=== PATIENT | male | born 1960 | race Caucasian/White ===

== ENCOUNTER 2018-01-26 09:28 | Inpatient (IN) ==
--- NOTE | 2018-01-26 09:53 | Emergency Department Note ---
ED Disposition Clinical Impression: Diverticulitis, Hepatic encephalopathy, Substance abuse Disposition: Still a Patient Condition on Discharge: Fair Referrals: Elsie Ho PA [Primary Care Provider] - - Critical Care Critical Care Time: No Attestation: On 01/26/18, the high probability of a clinically significant, sudden or life threatening deterioration of the following system(s) required my full and direct attention, intervention and personal management. The time I documented below is in addition to time spent performing reported procedures but includes the following listed in this critical care notation. Medical Decision Making - Junaid Inquiry Pt receiving controlled substance: No Vital Signs: 01/26/18 09:29 01/26/18 09:48 01/26/18 10:23 Temperature 97.6 F Temperature Source Oral Pulse Rate [Apical] 69 65 89 Respiratory Rate 18 Blood Pressure [Right Arm] 139/62 130/62 127/68 Blood Pressure Mean [Right Arm] 87 84 87 Blood Pressure Source [Right Arm] Automatic Cuff Manual Cuff/ Doppler Manual Cuff/ Doppler Blood Pressure Position [Right Arm] Sitting Sitting Sitting 02 Sat by Pulse Oximetry 100 99 98 Oxygen Delivery Method Room Air 01/26/18 11:13 01/26/18 11:44 01/26/18 12:07 Temperature Temperature Source Pulse Rate [Apical] 92 H 95 H 69 Respiratory Rate Blood Pressure [Right Arm] 128/70 130/79 121/72 Blood Pressure Mean [Right Arm] 89 96 88 Blood Pressure Source [Right Arm] Manual Cuff/ Doppler Manual Cuff/ Doppler Manual Cuff/ Doppler Blood Pressure Position [Right Arm] Sitting Sitting Sitting 02 Sat by Pulse Oximetry 98 97 100 Oxygen Delivery Method 01/26/18 12:37 Temperature Temperature Source Pulse Rate [Apical] 71 Respiratory Rate Blood Pressure [Right Arm] 117/72 Blood Pressure Mean [Right Arm] 87 Blood Pressure Source [Right Arm] Manual Cuff/ Doppler Blood Pressure Position [Right Arm] Sitting 02 Sat by Pulse Oximetry 100 Oxygen Delivery Method - Lab Data Lab Results 01/26/18 10:00: Urine Color Yellow, Urine Appearance Clear, Urine pH 6.0, Ur Specific [place] <= 1.005, Urine Protein Negative, Urine Glucose (UA) Negative, Urine Ketones Negative, Urine Blood Negative, Urine Nitrate Negative, Urine Bilirubin Negative, Urine Urobilinogen 4.0, Ur Leukocyte Esterase Trace, Urine RBC None, Urine WBC Occasional, Ur Squamous Epith Cells 3-5, Urine Bacteria Trace 01/26/18 10:00: Urine Opiates Screen Negative, Urine Methadone Screen Negative, Ur Barbituates Screen Negative, Ur Phencyclidine Scrn Negative, Ur Amphetamines Screen Positive H, U Benzodiazepines Scrn Negative, Urine Cocaine Screen Negative, U Marijuana (THC) Screen Negative 01/26/18 12:10: Sodium 135 L, Potassium 3.6, Chloride 98, Carbon Dioxide 28, Anion Gap 12.6, BUN 23 H, Creatinine 1.39 H, Estimated Creat Clear 68, Estimated GFR 53 L, Est GFR ( Amer) 64, Glucose 97, Calcium 9.5, Total Bilirubin 2.7 H, AST 46 H, ALT 64, Alkaline Phosphatase 150 H, Total Creatine Kinase 70, CK-MB (CK-2) 0.8, CK-MB (CK-2) Rel Index 1.1, Troponin I < 0.02, Total Protein 8.0, Albumin 3.0 L, Globulin 5.0 H, Albumin/Globulin Ratio 0.6 L, Lipase 132, TSH 0.19 L, Free T4 Index 4.7 L, Thyroxine (T4) 12.3, T3 Uptake 38, Salicylates 0.0 L, Acetaminophen 0 L, Plasma/Serum Alcohol 0 01/26/18 12:10: WBC 13.3 H, RBC 4.48 L, Hgb 15.0, Hct 44.8, MCV 99.9 H, MCH 33.4 H, MCHC 33.4, RDW 14.2, Plt Count 164, MPV 10.6 H, Neut % (Auto) 63.9, Lymph % (Auto) 28.3, [place] % (Auto) 7.2, Eos % (Auto) 0.3, Baso % (Auto) 0.2, Neut # (Auto) 8.5 H, Lymph # (Auto) 3.8, [place] # (Auto) 1.0, Eos # (Auto) 0.0, Baso # (Auto) 0.0 01/26/18 12:10: Ammonia 71 H 01/26/18 12:10: Lactate 1.7 Result diagrams: 01/26/18 12:10 01/26/18 12:10 Orders (Tests/Meds): ED MEDICATIONS Generic Name Dose Route Start Last Admin Trade Name Freq PRN Reason Stop Dose Admin Levofloxacin/Dextrose 500 mg in 100 mls @ 100 mls/hr 01/26/18 12:15 01/26/18 12:24 Levaquin 500mg/100ml Premix IV 02/09/18 12:14 100 mls/hr Q24H ERUM Administration Protocol Metronidazole 100 mls @ 100 mls/hr 01/26/18 12:15 Flagyl 500mg/100ml Ivpb IV 02/09/18 12:14 Q8H ERUM Protocol ORDERS Category Date Time Status PT/INR [Prothrombin Time INR] Stat Lab 01/26/18 10:10 Ordered - CT Data CT Scan: Head, Abdomen, Pelvis Time Received: 11:[address] Reviewed: Yes: I have viewed the radiologist's interpretation Findings Narrative: Head: Right mastoid and maxillary sinusitis, no acute intracranial process 12:00 PM: Abdomen and pelvis: Sigmoid diverticulitis without abscess or perforation - ECG Data Tracing #1 I reviewed this ECG and interpreted as documented below: EKG interpreted by Mau Reyes MD: Rhythm: sinus Rate: 66 [place]: normal Ectopy: none Conduction: normal ST Segment Changes: none T Wave Changes: none Q Waves: none No evidence of acute ischemia or injury - Physician Consults Physician Consulted: janeth Roman Time: 12:50 Reason -: Admission Comment/Response: Agrees to admit the patient to the hospital. We discussed the patient's clinical information, including history, exam, laboratory and radiology results and ED course. Per hospital procedure, I will write temporary bridge inpatient orders on the patient. Specific orders requested by the admitting physician: Continue antibiotics. Lactulose. General Adult HPI - General Chief complaint: Altered Mental Status Stated complaint: confused Time Seen by Provider: 01/26/18 09:34 Mode of Arrival: EMS Limitations: No Limitations Description of Symptoms (Recalled from ER Triage Doc. by RN): Per EMS report pt friend report pt was acting confused lastnight "wandering around, wasn't sleeping". Pt states he has been feeling confused for the past couple days. Pt is alert, oriented to person and place. Per EMS report pt told them he had been feeling confused - History of Present Illness HPI narrative: Brought in by ambulance for reported confusion. Neighbors reported that the patient was confused, wandering, not sleeping. Patient admits to being confused. States he has pain in his "chest" but points to his abdomen. He is uncertain of the details of this. States used to be a drinker and drug user in the 1980s. Nurses report that they were giving history that the patient was an IV drug user until a couple of months ago. Review of his records shows that he has cirrhosis and a history of IV drug abuse. Recent evaluation earlier this month for chest pain. Patient states he is on blood pressure medicine and a water pill, uncertain of other medications. - Related Data Home Medications Medication Instructions Recorded Confirmed Atenolol [Atenolol 50mg Tab] 50 mg PO DAILY 01/26/18 01/26/18 Bisoprolol Fumarate [Zebeta 5mg 5 mg PO QDAY 01/26/18 01/26/18 tablet] Losartan/Hydrochlorothiazide 1 tab PO DAILY 01/26/18 01/26/18 [Hyzaar 50-12.5 Tablet] Omeprazole [Omeprazole 40mg 40 mg PO QDAY 01/26/18 01/26/18 Capsule] Allergies Allergy/AdvReac Type Severity Reaction Status Date / Time No Known Allergies Allergy Unverified 05/19/17 14:41 [facility] History I have reviewed the patient's past medical history: Yes Medical History: Reports:: Hepatitis (hx of hep c/ status post harvoni infusion) , Hypertension Denies:: Diabetes Mellitus Type 1, Diabetes Mellitus Type 2 Other Surgeries: Yes: Angiogram, Other ( cyst removed ) Amputation: No Fractures: No - Social History Smoking Status: Current every day smoker Tobacco Type: cigarettes Alcohol Intake: former Alcohol Intake Frequency:: other Substance Use Type: IV drugs - Psychiatric History Expresses thoughts of harming self/others: None Suicide Plan Description: No Plan Family Hx:: Heart Attack, Stroke, Diabetes, Hyperlipidemia, Cancer ROS Obtained: Yes unobtainable due to mental status Physical Exam - General General appearance: alert, in no apparent distress - Head Head exam: atraumatic, normocephalic, normal inspection - Eye Eye exam: Present: normal appearance, PERRL, EOMI - ENT ENT exam: Present: mucous membranes moist - Neck Neck exam: Present: normal inspection, full ROM, trachea midline. Absent: meningismus, lymphadenopathy - Chest Chest inspection: Present: normal inspection, symmetric chest wall rise. Absent : tenderness - Respiratory Respiratory exam: Present: normal lung sounds bilaterally. Absent: respiratory distress - Cardiovascular Cardiovascular exam: Present: regular rate, normal rhythm. Absent: JVD - Abdominal Exam Abdominal exam: Present: soft, tenderness (Questionable minimal generalized tenderness, inconsistent), normal bowel sounds. Absent: distention, guarding - Extremities Exam Extremities exam: Present: normal inspection, full ROM, normal capillary refill. Absent: calf tenderness - Back Exam Back exam: Present: normal inspection. Absent: tenderness - Neurological Exam Neurological exam: Present: alert, CN II-XII intact, other (Oriented to person and place) - Expanded Neurological Exam Comment: Generalized weakness, no focal weakness. Sensory intact. - Psychiatric Psychiatric exam: Present: normal affect, normal mood - Skin Skin exam: Present: warm, dry, intact, normal color - Lymphatic Lymphatic Findings: no adenopathy
[2018-01-26 10:07] LABS: Microscopic, Urine URINE MICROSCOPIC (MICROSCOPIC)
[2018-01-26 10:08] LABS: Appearance,Urine CLEAR (Clear); Bilirubin,Urine Negative (Negative); Blood, Urine Negative (Negative); Color,Urine YELLOW (Yellow); Glucose,Urine (UA) Negative (Negative); Ketones,Urine Negative (Negative); Leukocyte Esterase,Urine TRACE (Negative); Protein,Urine Negative (Negative); Specific Gravity, Urine <= 1.005 (1.005-1.030)
[2018-01-26 10:16] LABS: Amphetamine/Metha Screen,Urine Positive ng/mL (<1000); Barbiturates Screen,Urine Negative ng/mL (<200); Benzodiazepines Screen,Urine Negative ng/mL (<200); Cannabinoid Screen,Urine Negative ng/mL (<50); Cocaine Screen,Urine Negative ng/mL (<300); Methadone Screen,Urine Negative ng/mL (<300); Opiate Screen,Urine Negative ng/mL (<300); Phencyclidine Screen,Urine Negative ng/mL (<25)
[2018-01-26 10:18] LABS: Bacteria,Urine Trace /lpf; WBC,Urine Occasional #/hpf (0-3)
[2018-01-26 12:15] LABS: Basophils % 0.2 % (0.1-2.0); Eosinophils % 0.3 % (0.1-12.0); Hematocrit 44.8 % (42.0-52.0); Lymphocytes # 3.8 K/mm3 (0.7-4.5); Lymphocytes % 28.3 K/mm3 (10-50); Mean Corpuscular HGB Conc 33.4 g/dL (31.8-35.4); Mean Corpuscular Hemoglobin 33.4 pg (27.0-31.2); Mean Corpuscular Volume 99.9 fl (80-94); Mean Platelet Volume 10.6 fl (7.4-10.4); Monocytes % 7.2 % (1.7-9.3); Neutrophils # 8.5 K/mm3 (1.8-7.8); Neutrophils % 63.9 % (37.0-80.0); Platelet Count 164 K/mm3 (142-424); Red Blood Count 4.48 M/mm3 (4.60-6.20); Red Cell Distribution Width 14.2 % (11.5-17.5); White Blood Count 13.3 K/mm3 (4.8-10.8)
[2018-01-26 12:48] LABS: Alanine Aminotransferase 64 U/L (12-78); Albumin/Globulin Ratio 0.6 (1.1-1.8); Alkaline Phosphatase 150 U/L (46-116); Anion Gap 12.6 mEq/L (5-15); Aspartate Amino Transferase 46 U/L (15-37); Bilirubin,Total 2.7 mg/dL (0.2-1.0); Blood Urea Nitrogen 23 mg/dL (7-18); Calcium 9.5 mg/dL (8.5-10.1); Carbon Dioxide 28 mmol/L (21.0-32.0); Chloride 98 mmol/L (98-107); Creatine Kinase 70 U/L (39-308); Free Thyroxine Index 4.7 ug/dL (5.93-13.13); Lipase 132 u/L (73-393); Potassium 3.6 mmoL/L (3.5-5.1); Sodium 135 mmol/L (136-145); T4 (Thyroxine) 12.3 ug/dl (4.7-13.3); Thyroid Stimulating Hormone 0.19 uIU/ml (0.358-3.740); Triiodothryronine (T3) Uptake 38 % (31-39)
[2018-01-26 12:50] LABS: Ethyl Alcohol 0 mg/dL (0-99)
[2018-01-26 12:51] LABS: Acetaminophen 0 ug/mL (10-30)
[2018-01-26 12:57] LABS: Glucose 97 mg/dL (74-106)
--- NOTE | 2018-01-26 13:35 | History & Physical Report ---
*Admission Date: 01/26/18 *Chief complaint: abd pain *History of present illness: this wm reports not feeling well and was seen in the ed -rought in by ambulance for reported confusion. Neighbors reported that the patient was confused, wandering, not sleeping. Patient admits to being confused. States he has pain in his "chest" but points to his abdomen. He is uncertain of the details of this. States used to be a drinker and drug user in the 1980s. Nurses report that they were giving history that the patient was an IV drug user until a couple of months ago. Review of his records shows that he has cirrhosis and a history of IV drug abuse. Recent evaluation earlier this month for chest pain. Patient states he is on blood pressure medicine and a water pill, uncertain of other medications. [facility] History I have reviewed the patient's past medical history: Yes Medical History: Reports:: Hepatitis (hx of hep c/ status post harvoni infusion), Hypertension Denies:: Diabetes Mellitus Type 1, Diabetes Mellitus Type 2 Other Surgeries: Yes: Angiogram, Other ( cyst removed ) Amputation: No Fractures: No - *Social History Smoking Status: Current every day smoker Tobacco Type: cigarettes Alcohol Intake: former Alcohol Intake Frequency:: other Substance Use Type: IV drugs - Psychiatric History Expresses thoughts of harming self/others: None Suicide Plan Description: No Plan *Family Hx:: Heart Attack, Stroke, Diabetes, Hyperlipidemia, Cancer Review of Systems - Review of Systems Review of systems:: pertinent systems reviewed and negative unless documented below - Constitutional Reports weakness - Eyes Denies change in vision - ENT Reports dry mouth - *Cardiovascular Denies chest pain at rest - *Respiratory Reports cough, Denies coughing up blood - *Gastrointestinal Reports abdominal pain, Reports nausea, Denies black, tarry stools, Denies vomiting - *Genitourinary Denies blood in urine - *Musculoskeletal Reports joint pain, Denies joint swelling - Integumentary/Breasts Denies rash - *Neurologic Reports weakness, Denies confusion, Denies headache(s), Denies seizure-like activity - Psychiatric Denies anxiety Meds Home Medications Medication Instructions Recorded Confirmed Type Bisoprolol Fumarate [Zebeta 5mg 5 mg PO DAILY 01/26/18 01/26/18 History tablet] Losartan/Hydrochlorothiazide 1 tab PO DAILY 01/26/18 01/26/18 History [Hyzaar 50-12.5 Tablet] Omeprazole [Omeprazole 40mg 40 mg PO DAILY 01/26/18 01/26/18 History Capsule] Allergies Allergy/AdvReac Type Severity Reaction Status Date / Time No Known Allergies Allergy Unverified 05/19/17 14:41 Exam Vital signs and Labs for Last 24 Hours: Temp Pulse Resp BP Pulse Ox 97.6 F 65 18 120/81 100 01/26/18 09:29 01/26/18 13:06 01/26/18 09:29 01/26/18 13:06 01/26/18 13:06 Laboratory Results - last 24 hr 01/26/18 10:00: Urine Color Yellow, Urine Appearance Clear, Urine pH 6.0, Ur Specific [place] <= 1.005, Urine Protein Negative, Urine Glucose (UA) Negative, Urine Ketones Negative, Urine Blood Negative, Urine Nitrate Negative, Urine Bilirubin Negative, Urine Urobilinogen 4.0, Ur Leukocyte Esterase Trace, Urine RBC None, Urine WBC Occasional, Ur Squamous Epith Cells 3-5, Urine Bacteria Trace 01/26/18 10:00: Urine Opiates Screen Negative, Urine Methadone Screen Negative, Ur Barbituates Screen Negative, Ur Phencyclidine Scrn Negative, Ur Amphetamines Screen Positive H, U Benzodiazepines Scrn Negative, Urine Cocaine Screen Negative, U Marijuana (THC) Screen Negative 01/26/18 12:10: Sodium 135 L, Potassium 3.6, Chloride 98, Carbon Dioxide 28, Anion Gap 12.6, BUN 23 H, Creatinine 1.39 H, Estimated Creat Clear 68, Estimated GFR 53 L, Est GFR ( Amer) 64, Glucose 97, Calcium 9.5, Total Bilirubin 2.7 H, AST 46 H, ALT 64, Alkaline Phosphatase 150 H, Total Creatine Kinase 70, CK-MB (CK-2) 0.8, CK-MB (CK-2) Rel Index 1.1, Troponin I < 0.02, Total Protein 8.0, Albumin 3.0 L, Globulin 5.0 H, Albumin/Globulin Ratio 0.6 L, Lipase 132, TSH 0.19 L, Free T4 Index 4.7 L, Thyroxine (T4) 12.3, T3 Uptake 38, Salicylates 0.0 L, Acetaminophen 0 L, Plasma/Serum Alcohol 0 01/26/18 12:10: WBC 13.3 H, RBC 4.48 L, Hgb 15.0, Hct 44.8, MCV 99.9 H, MCH 33.4 H, MCHC 33.4, RDW 14.2, Plt Count 164, MPV 10.6 H, Neut % (Auto) 63.9, Lymph % (Auto) 28.3, [place] % (Auto) 7.2, Eos % (Auto) 0.3, Baso % (Auto) 0.2, Neut # (Auto) 8.5 H, Lymph # (Auto) 3.8, [place] # (Auto) 1.0, Eos # (Auto) 0.0, Baso # (Auto) 0.0 01/26/18 12:10: Ammonia 71 H 01/26/18 12:10: Lactate 1.7 I & O for Last 24 hours: Intake & Output 01/24/18 01/25/18 01/26/18 01/27/18 11:59 11:59 11:59 11:59 Weight 180 lb - Constitutional no acute distress, cooperative - *Routine HEENT Exam Head: Present: normocephalic Eye: Present: EOMI, PERRL. Absent: conjunctival icterus ENT: Present: mucous membranes dry - *Routine Neck Exam Present: supple - *Routine Respiratory Exam Present: rhonchi - *Routine Cardiovascular Exam Present: RRR, murmur, S4 - *Routine Abdominal Exam Present: soft. Absent: organomegaly - *Routine Extremities Exam Present: edema - *Routine Skin Exam Present: intact - *Routine Neurological Exam Present: alert, oriented X3, CN II-XII intact. Absent: asterixis - Routine Psychiatric Exam Present: normal affect Assessment and Plan (1) Diverticulitis Current visit: Yes Status: Acute Category: Medical Code(s): K57.92 - Diverticulitis of intestine, part unspecified, without perforation or abscess without bleeding (2) Hepatic encephalopathy Current visit: Yes Status: Acute Category: Medical Code(s): K72.90 - Hepatic failure, unspecified without coma (3) Cirrhosis Current visit: No Status: Acute Category: Medical Code(s): K74.60 - Unspecified cirrhosis of liver (4) Renal insufficiency Current visit: Yes Status: Acute Category: Medical Code(s): N28.9 - Disorder of kidney and ureter, unspecified
--- NOTE | 2018-01-26 14:24 | Pharmacy Consult Notes ---
[facility] Pharmacy VTE Monitoring - Patient Demographics Admission date: 01/26/18 Report Date: 01/26/18 Time: 14:23 Allergies/Adverse Reactions: Patient Allergies No Known Allergies Allergy (Unverified 05/19/17 14:41) Height: 1.73 m Weight: 81.647 kg Patient Problems: Current Active Problems Diverticulitis (Acute) Hepatic encephalopathy (Acute) Substance abuse (Acute) - VTE Risk Labs: VTE Related Lab Results Hgb 15.0 g/dL (14.1-18.0) 01/26/18 12:10 Hct 44.8 % (42.0-52.0) 01/26/18 12:10 Plt Count 164 K/mm3 (142-424) 01/26/18 12:10 BUN 23 mg/dL (7-18) H 01/26/18 12:10 Creatinine 1.39 mg/dL (0.70-1.30) H 01/26/18 12:10 Estimated Creat Clear 68 mL/min (0-300) 01/26/18 12:10 Clinical Trial Participant: No - Prophylaxis VTE Prophylaxis Ordered?: Yes Types of VTE Prophylaxis: TEDS Knee High
[2018-01-27 07:17] LABS: Albumin Level 2.4 gm/dL (3.4-5.0); Albumin/Globulin Ratio 0.5 (1.1-1.8); Anion Gap 9.3 mEq/L (5-15); Bilirubin,Total 2.3 mg/dL (0.2-1.0); Globulin 4.4 gm/dl (1.3-3.2); Potassium 3.3 mmoL/L (3.5-5.1); Total Protein,Serum 6.8 gm/dL (6.4-8.2)
[2018-01-27 07:59] LABS: Basophils % 0.3 % (0.1-2.0); Eosinophils # 0.1 K/mm3 (0.0-0.4); Eosinophils % 0.9 % (0.1-12.0); Hematocrit 42.1 % (42.0-52.0); Hemoglobin 13.9 g/dL (14.1-18.0); Lymphocytes # 4.2 K/mm3 (0.7-4.5); Lymphocytes % 33.9 K/mm3 (10-50); Mean Corpuscular HGB Conc 32.9 g/dL (31.8-35.4); Mean Corpuscular Hemoglobin 33.1 pg (27.0-31.2); Mean Corpuscular Volume 100.6 fl (80-94); Mean Platelet Volume 11.3 fl (7.4-10.4); Monocytes # 1.2 K/mm3 (0.1-1.0); Neutrophils # 6.8 K/mm3 (1.8-7.8); Neutrophils % 54.9 % (37.0-80.0); Platelet Count 168 K/mm3 (142-424); Red Blood Count 4.18 M/mm3 (4.60-6.20); Red Cell Distribution Width 14.2 % (11.5-17.5); White Blood Count 12.3 K/mm3 (4.8-10.8)
[2018-01-27 08:03] LABS: Calcium 8.5 mg/dL (8.5-10.1)
[2018-01-27 08:08] LABS: INR 1.37 (0.9-1.1)
--- NOTE | 2018-01-27 09:27 | Progress Note ---
Internal Medicine - PN: Subj *Date: 01/27/18 *Time: 08:05 Interval history: doing better but has elevated ammonia Exam Vital signs and Labs for Last 24 Hours: Temp Pulse Resp BP Pulse Ox 99.1 F 87 22 114/57 100 01/27/18 07:59 01/27/18 07:59 01/27/18 07:59 01/27/18 07:59 01/27/18 07:59 Laboratory Results - last 24 hr 01/26/18 10:00: Urine Color Yellow, Urine Appearance Clear, Urine pH 6.0, Ur Specific [place] <= 1.005, Urine Protein Negative, Urine Glucose (UA) Negative, Urine Ketones Negative, Urine Blood Negative, Urine Nitrate Negative, Urine Bilirubin Negative, Urine Urobilinogen 4.0, Ur Leukocyte Esterase Trace, Urine RBC None, Urine WBC Occasional, Ur Squamous Epith Cells 3-5, Urine Bacteria Trace 01/26/18 10:00: Urine Opiates Screen Negative, Urine Methadone Screen Negative, Ur Barbituates Screen Negative, Ur Phencyclidine Scrn Negative, Ur Amphetamines Screen Positive H, U Benzodiazepines Scrn Negative, Urine Cocaine Screen Nega tive, U Marijuana (THC) Screen Negative 01/26/18 12:10: Sodium 135 L, Potassium 3.6, Chloride 98, Carbon Dioxide 28, Anion Gap 12.6, BUN 23 H, Creatinine 1.39 H, Estimated Creat Clear 68, Estimated GFR 53 L, Est GFR ( Amer) 64, Glucose 97, Calcium 9.5, Total Bilirubin 2.7 H, AST 46 H, ALT 64, Alkaline Phosphatase 150 H, Total Creatine Kinase 70, CK-MB (CK-2) 0.8, CK-MB (CK-2) Rel Index 1.1, Troponin I < 0.02, Total Protein 8.0, Albumin 3.0 L, Globulin 5.0 H, Albumin/Globulin Ratio 0.6 L, Lipase 132, TSH 0.19 L, Free T4 Index 4.7 L, Thyroxine (T4) 12.3, T3 Uptake 38, Salicylates 0.0 L, Acetaminophen 0 L, Plasma/Serum Alcohol 0 01/26/18 12:10: WBC 13.3 H, RBC 4.48 L, Hgb 15.0, Hct 44.8, MCV 99.9 H, MCH 33.4 H, MCHC 33.4, RDW 14.2, Plt Count 164, MPV 10.6 H, Neut % (Auto) 63.9, Lymph % (Auto) 28.3, [place] % (Auto) 7.2, Eos % (Auto) 0.3, Baso % (Auto) 0.2, Neut # (Auto) 8.5 H, Lymph # (Auto) 3.8, [place] # (Auto) 1.0, Eos # (Auto) 0.0, Baso # (Auto) 0.0 01/26/18 12:10: Ammonia 71 H 01/26/18 12:10: Lactate 1.7 01/27/18 05:26: Ammonia 92 H 01/27/18 05:26: Sodium 135 L, Potassium 3.3 L, Chloride 101, Carbon Dioxide 28, Anion Gap 9.3, BUN 18, Creatinine 1.26, Estimated Creat Clear 67, Estimated GFR 59, Est GFR ( Amer) 71, Glucose 147 H D, Calcium 8.5 D, Total Bilirubin 2.3 H, AST 33 D, ALT 50, Alkaline Phosphatase 122 H, Total Protein 6.8, Albumin 2.4 L D, Globulin 4.4 H, Albumin/Globulin Ratio 0.5 L 01/27/18 07:50: WBC 12.3 H, RBC 4.18 L, Hgb 13.9 L, Hct 42.1, MCV 100.6 H, MCH 33.1 H, MCHC 32.9, RDW 14.2, Plt Count 168, MPV 11.3 H, Neut % (Auto) 54.9, Lymph % (Auto) 33.9, [place] % (Auto) 10.0 H, Eos % (Auto) 0.9, Baso % (Auto) 0.3, Neut # (Auto) 6.8, Lymph # (Auto) 4.2, [place] # (Auto) 1.2 H, Eos # (Auto) 0.1, Baso # (Auto) 0.0 01/27/18 07:50: PT 14.0 H, INR 1.37 H 01/27/18 07:50: Ammonia 123 H I & O for Last 24 hours: Intake & Output 01/24/18 01/25/18 01/26/18 01/27/18 11:59 11:59 11:59 11:59 Intake Total 1769.6 / 1769.6 Balance 1769.6 / 1769.6 Weight 180 lb 161 lb 7 oz - Constitutional no acute distress - *Routine HEENT Exam Head: Present: normocephalic Eye: Present: EOMI, PERRL. Absent: conjunctival icterus ENT: Present: mucous membranes dry - *Routine Neck Exam Present: supple - *Routine Respiratory Exam Present: CTA bilaterally - *Routine Cardiovascular Exam Present: RRR - *Routine Abdominal Exam Present: soft, tenderness - *Routine Extremities Exam Absent: edema, full ROM - *Routine Skin Exam Present: intact - *Routine Neurological Exam Present: alert, oriented X3, CN II-XII intact. Absent: asterixis - Routine Psychiatric Exam Present: normal affect Assessment and Plan (1) Diverticulitis Current visit: Yes Status: Acute Category: Medical Code(s): K57.92 - Diverticulitis of intestine, part unspecified, without perforation or abscess without bleeding (2) Hepatic encephalopathy Current visit: Yes Status: Acute Category: Medical Code(s): K72.90 - Hepatic failure, unspecified without coma (3) Cirrhosis Current visit: No Status: Acute Category: Medical Code(s): K74.60 - Unspecified cirrhosis of liver (4) Renal insufficiency Current visit: Yes Status: Acute Category: Medical Code(s): N28.9 - Disorder of kidney and ureter, unspecified
[2018-01-28 09:26] LABS: Basophils % 0.4 % (0.1-2.0); Eosinophils # 0.1 K/mm3 (0.0-0.4); Eosinophils % 1.6 % (0.1-12.0); Hematocrit 42.3 % (42.0-52.0); Hemoglobin 13.5 g/dL (14.1-18.0); Lymphocytes # 2.9 K/mm3 (0.7-4.5); Lymphocytes % 37.5 K/mm3 (10-50); Mean Corpuscular HGB Conc 31.8 g/dL (31.8-35.4); Mean Corpuscular Hemoglobin 32.3 pg (27.0-31.2); Mean Corpuscular Volume 101.7 fl (80-94); Mean Platelet Volume 10.8 fl (7.4-10.4); Monocytes # 0.8 K/mm3 (0.1-1.0); Monocytes % 9.7 % (1.7-9.3); Neutrophils % 50.7 % (37.0-80.0); Platelet Count 149 K/mm3 (142-424); Red Blood Count 4.16 M/mm3 (4.60-6.20); Red Cell Distribution Width 14.1 % (11.5-17.5); White Blood Count 7.8 K/mm3 (4.8-10.8)
[2018-01-28 09:39] LABS: Albumin Level 2.4 gm/dL (3.4-5.0); Albumin/Globulin Ratio 0.5 (1.1-1.8); Anion Gap 12.1 mEq/L (5-15); Bilirubin,Total 1.5 mg/dL (0.2-1.0); Calcium 8.5 mg/dL (8.5-10.1); Globulin 4.4 gm/dl (1.3-3.2); Potassium 3.1 mmoL/L (3.5-5.1); Total Protein,Serum 6.8 gm/dL (6.4-8.2)
--- NOTE | 2018-01-28 10:58 | Discharge Summary ---
General - General Admission date:: 01/26/18 Discharge date: 01/28/18 HPI HPI: this wm reports not feeling well and was seen in the ed -rought in by ambulance for reported confusion. Neighbors reported that the patient was confused, wandering, not sleeping. Patient admits to being confused. States he has pain in his "chest" but points to his abdomen. He is uncertain of the details of this. States used to be a drinker and drug user in the 1980s. Nurses report that they were giving history that the patient was an IV drug user until a couple of months ago. Review of his records shows that he has cirrhosis and a history of IV drug abuse. Recent evaluation earlier this month for chest pain. Patient states he is on blood pressure medicine and a water pill, uncertain of other medications. Hospital Course Hospital Course: pt with abd pain and dec po intake and wea seen in the ed and admitted with diverticulitis and hepatic encephalopathy - pt with slow improvement with meds and ivf - his diet was tolerated and we discussed op gi eval and pcp follow up Objective Vital signs: Temp Pulse Resp BP Pulse Ox 97.7 F 70 18 133/69 95 01/28/18 08:00 01/28/18 08:00 01/28/18 08:00 01/28/18 08:00 01/28/18 08:00 no acute distress - *Routine HEENT Exam Head: Present: normocephalic Eye: Present: EOMI, PERRL ENT: Present: mucous membranes dry - *Routine Neck Exam Present: supple - *Routine Respiratory Exam Present: CTA bilaterally - *Routine Cardiovascular Exam Present: RRR, murmur - *Routine Abdominal Exam Present: soft. Absent: tenderness - *Routine Extremities Exam Present: full ROM - *Routine Skin Exam Present: intact - *Routine Neurological Exam Present: alert, oriented X3, CN II-XII intact - Routine Psychiatric Exam Present: normal affect Results Labs on day of discharge: Labs from last 24 hours 01/28/18 01/28/18 09:15 09:15 WBC 7.8 D RBC 4.16 L Hgb 13.5 L Hct 42.3 MCV 101.7 H MCH 32.3 H MCHC 31.8 RDW 14.1 Plt Count 149 MPV 10.8 H Neut % (Auto) 50.7 Lymph % (Auto) 37.5 [place] % (Auto) 9.7 H Eos % (Auto) 1.6 Baso % (Auto) 0.4 Neut # (Auto) 4.0 Lymph # (Auto) 2.9 [place] # (Auto) 0.8 Eos # (Auto) 0.1 Baso # (Auto) 0.0 Sodium 136 Potassium 3.1 L Chloride 102 Carbon Dioxide 25 Anion Gap 12.1 BUN 9 D Creatinine 1.20 Estimated Creat Clear 73 Estimated GFR 62 Est GFR ( Amer) 76 Glucose 129 H Calcium 8.5 Total Bilirubin 1.5 H AST 40 H ALT 50 Alkaline Phosphatase 134 H Total Protein 6.8 Albumin 2.4 L Globulin 4.4 H Albumin/Globulin Ratio 0.5 L DS: Diagnosis - Discharge Diagnosis (1) Diverticulitis Status: Acute (2) Hepatic encephalopathy Status: Acute (3) Cirrhosis Status: Acute (4) Renal insufficiency Status: Acute (5) Hepatitis C Status: Acute (6) Hypokalemia Status: Acute Discharge Plan - Patient Discharge Instructions ACTIVITY: Continue current activity DIET: continue same diet - Follow up Plan Disposition: Home, Self-Snf Medications: Home Medications Medication Instructions Recorded Confirmed Type Bisoprolol Fumarate [Zebeta 5mg 5 mg PO DAILY 01/26/18 01/26/18 History tablet] Losartan/Hydrochlorothiazide 1 tab PO DAILY 01/26/18 01/26/18 History [Hyzaar 50-12.5 Tablet] Omeprazole [Omeprazole 40mg 40 mg PO DAILY 01/26/18 01/26/18 History Capsule] Prescriptions/Medication Reconciliation: New hydroCHLOROthiazide [HCTZ 25mg tab] 12.5 mg PO DAILY tablet levoFLOXacin [Levaquin 500mg tab] 500 mg PO DAILY #7 tab metroNIDAZOLE [Flagyl] 500 mg PO TID #30 tablet Nicotine [Nicoderm 21mg/24hr patch] 21 mg TD DAILYP PRN #30 patch.td24 PRN Reason: Nicotine Cravings Lactulose [Chronulac 20gm/30mL UDC] 30 gm PO QID #120 udc Continue Omeprazole [Omeprazole 40mg Capsule] 40 mg PO DAILY Losartan/Hydrochlorothiazide [Hyzaar 50-12.5 Tablet] 1 tab PO DAILY Bisoprolol Fumarate [Zebeta 5mg tablet] 5 mg PO DAILY
== END 2018-01-28 12:43 | disposition home or self-care (01) ==
LOC: ER 09:28 → 2ND 13:05
PROVIDERS: ADMIT Emergency Medicine; ATTEND Emergency Medicine

== ENCOUNTER 2018-02-21 05:23 | Inpatient (IN) ==
[2018-02-21 06:08] LABS: Basophils % 0.1 % (0.1-2.0); Eosinophils # 0.1 K/mm3 (0.0-0.4); Eosinophils % 1.2 % (0.1-12.0); Hematocrit 33.4 % (42.0-52.0); Hemoglobin 10.7 g/dL (14.1-18.0); Lymphocytes # 1.6 K/mm3 (0.7-4.5); Lymphocytes % 27.1 K/mm3 (10-50); Mean Corpuscular HGB Conc 31.9 g/dL (31.8-35.4); Mean Corpuscular Hemoglobin 33.3 pg (27.0-31.2); Mean Corpuscular Volume 104.3 fl (80-94); Mean Platelet Volume 12.2 fl (7.4-10.4); Monocytes # 0.4 K/mm3 (0.1-1.0); Monocytes % 6.8 % (1.7-9.3); Neutrophils # 3.8 K/mm3 (1.8-7.8); Neutrophils % 64.8 % (37.0-80.0); Platelet Count 105 K/mm3 (142-424); Red Cell Distribution Width 14.6 % (11.5-17.5); White Blood Count 5.8 K/mm3 (4.8-10.8)
[2018-02-21 06:36] LABS: Alanine Aminotransferase 20 U/L (12-78); Albumin Level 2.4 gm/dL (3.4-5.0); Alkaline Phosphatase 127 U/L (46-116); Anion Gap 12.9 mEq/L (5-15); Aspartate Amino Transferase 30 U/L (15-37); Bilirubin,Direct 0.5 mg/dL (0.0-0.2); Bilirubin,Indirect 0.7 mg/dL (0.0-0.9); Bilirubin,Total 1.2 mg/dL (0.2-1.0); Blood Urea Nitrogen 27 mg/dL (7-18); Carbon Dioxide 24 mmol/L (21.0-32.0); Chloride 110 mmol/L (98-107); Glucose 99 mg/dL (74-106); Potassium 3.9 mmoL/L (3.5-5.1); Sodium 143 mmol/L (136-145); Thyroid Stimulating Hormone 1.64 uIU/ml (0.358-3.740); Total Protein,Serum 6.2 gm/dL (6.4-8.2)
[2018-02-21 06:44] LABS: Calcium 7.9 mg/dL (8.5-10.1)
[2018-02-21 06:50] LABS: Ethyl Alcohol 0 mg/dL (0-99)
[2018-02-21 07:10] LABS: Microscopic, Urine URINE MICROSCOPIC (MICROSCOPIC)
[2018-02-21 07:12] LABS: Appearance,Urine CLEAR (Clear); Bilirubin,Urine Negative (Negative); Blood, Urine Negative (Negative); Color,Urine YELLOW (Yellow); Glucose,Urine (UA) Negative (Negative); Ketones,Urine Negative (Negative); Leukocyte Esterase,Urine Negative (Negative); Protein,Urine Negative (Negative); Specific Gravity, Urine <= 1.005 (1.005-1.030); Urobilinogen,Urine 0.2 EU/dl (0.2)
[2018-02-21 07:18] LABS: Amphetamine/Metha Screen,Urine Negative ng/mL (<1000); Barbiturates Screen,Urine Negative ng/mL (<200); Benzodiazepines Screen,Urine Negative ng/mL (<200); Cannabinoid Screen,Urine Negative ng/mL (<50); Cocaine Screen,Urine Negative ng/mL (<300); Methadone Screen,Urine Negative ng/mL (<300); Opiate Screen,Urine Negative ng/mL (<300); Phencyclidine Screen,Urine Negative ng/mL (<25)
--- NOTE | 2018-02-21 07:45 | Emergency Department Note ---
ED Disposition Clinical Impression: Altered mental status, Hepatic encephalopathy Disposition: Admitted As Inpatient Condition on Discharge: Fair Time of Disposition: 08:02 - Critical Care Critical Care Time: Yes Attestation: On 02/21/18, the high probability of a clinically significant, sudden or life threatening deterioration of the following system(s) required my full and direct attention, intervention and personal management. The time I documented below is in addition to time spent performing reported procedures but includes the following listed in this critical care notation. Vital system(s) involved:: Circulatory Failure, Central Nervous System, Metabolic Failure, Renal Failure My critical care processes included: Assessment & monitoring of V/S, Initial and Re-exams, Data Review/Interpretation Comment: Discussed case with with his covering PCP (Dr. Roman). SBAR given. Patient admitted to his care for farther management and monitoring. Patient remained stable during his ED care Medical Decision Making - Medical Records Medical records reviewed: Yes: I reviewed the patient's medical records. - Junaid Inquiry Pt receiving controlled substance: No Vital Signs: 02/21/18 05:24 Temperature 98.4 F Temperature Source Oral Pulse Rate [Right Radial] 94 H Respiratory Rate 16 Blood Pressure [Right Arm] 135/76 Blood Pressure Mean [Right Arm] 95 Blood Pressure Source [Right Arm] Automatic Cuff Blood Pressure Position [Right Arm] Sitting 02 Sat by Pulse Oximetry 100 Oxygen Delivery Method Room Air - Lab Data Lab Results 02/21/18 05:50: WBC 5.8, RBC 3.20 L, Hgb 10.7 L, Hct 33.4 L, MCV 104.3 H, MCH 33.3 H, MCHC 31.9, RDW 14.6, Plt Count 105 L, MPV 12.2 H, Neut % (Auto) 64.8, Lymph % (Auto) 27.1, [place] % (Auto) 6.8, Eos % (Auto) 1.2, Baso % (Auto) 0.1, Neut # (Auto) 3.8, Lymph # (Auto) 1.6, [place] # (Auto) 0.4, Eos # (Auto) 0.1, Baso # (Auto) 0.0 02/21/18 05:50: Sodium 143, Potassium 3.9, Chloride 110 H, Carbon Dioxide 24, Anion Gap 12.9, BUN 27 H, Creatinine 2.13 H, Estimated Creat Clear 44, Estimated GFR 32 L, Est GFR ( Amer) 39 L, Glucose 99, Calcium 7.9 L, Magnesium 1.6, Total Bilirubin 1.2 H, Direct Bilirubin 0.5 H, Indirect Bilirubin 0.7, AST 30, ALT 20, Alkaline Phosphatase 127 H, Troponin I < 0.02, Total Protein 6.2 L D, A lbumin 2.4 L, TSH 1.64 D, Plasma/Serum Alcohol 0 02/21/18 05:50: Lactate 1.9 02/21/18 05:50: Ammonia 125 H 02/21/18 07:00: Urine Color Yellow, Urine Appearance Clear, Urine pH 6.0, Ur Specific [place] <= 1.005, Urine Protein Negative, Urine Glucose (UA) Negative, Urine Ketones Negative, Urine Blood Negative, Urine Nitrate Negative, Urine Bilirubin Negative, Urine Urobilinogen 0.2, Ur Leukocyte Esterase Negative, Urine WBC 5-10, Ur Squamous Epith Cells 5-10 02/21/18 07:00: Urine Opiates Screen Negative, Urine Methadone Screen Negative, Ur Barbituates Screen Negative, Ur Phencyclidine Scrn Negative, Ur Amphetamines Screen Negative, U Benzodiazepines Scrn Negative, Urine Cocaine Screen Negative, U Marijuana (THC) Screen Negative Result diagrams: 02/21/18 05:50 02/21/18 05:50 Orders (Tests/Meds): ED MEDICATIONS Generic Name Dose Route Start Last Admin Trade Name Freq PRN Reason Stop Dose Admin Bisoprolol Fumarate 5 mg 02/21/18 09:00 Zebeta 5mg Tablet PO 03/23/18 08:59 DAILY ERUM Hydrochlorothiazide 12.5 mg 02/21/18 09:00 Hctz 25mg Tablet PO 03/23/18 08:59 DAILY ERUM Sodium Chloride 1,000 mls @ 125 mls/hr 02/21/18 08:19 Sod Chlor 0.9% 1000ml Bag IV 03/23/18 07:44 .Q8H ERUM Lactulose 20 gm 02/21/18 09:00 Chronulac 20gm/30ml Udc PO 03/23/18 08:59 QID ERUM Lactulose 30 gm 02/21/18 09:00 Chronulac 20gm/30ml Udc PO 03/23/18 08:59 QID ERUM Nicotine 21 mg 02/21/18 08:19 Nicoderm 21mg/24hr Patch TD 03/23/18 08:07 DAILYP PRN Nicotine Cravings Non-Formulary Medication 1 tab 02/21/18 09:00 Losartan/Hydrochlorothiazide [Hyzaar 50-12.5 Tablet] PO 03/23/18 08:59 DAILY ERUM Non-Formulary Medication 40 mg 02/21/18 09:00 Omeprazole [Omeprazole 40mg Capsule] PO 03/23/18 08:59 DAILY ERUM Discontinued Medications Generic Name Dose Route Start Last Admin Trade Name Freq PRN Reason Stop Dose Admin Bisoprolol Fumarate 5 mg 02/21/18 09:00 Zebeta 5mg Tablet PO 03/23/18 08:59 DAILY ERUM Hydrochlorothiazide 12.5 mg 02/21/18 09:00 Hctz 25mg Tablet PO 03/23/18 08:59 DAILY ERUM Sodium Chloride 1,000 mls @ 125 mls/hr 02/21/18 07:45 Sod Chlor 0.9% 1000ml Bag IV 03/23/18 07:44 .Q8H ERUM Lactulose 20 gm 02/21/18 09:00 Chronulac 20gm/30ml Udc PO 03/23/18 08:59 QID ERUM Lactulose 30 gm 02/21/18 09:00 Chronulac 20gm/30ml Udc PO 03/23/18 08:59 QID ERUM Nicotine 21 mg 02/21/18 08:08 Nicoderm 21mg/24hr Patch TD 03/23/18 08:07 DAILYP PRN Nicotine Cravings Non-Formulary Medication 40 mg 02/21/18 09:00 Omeprazole [Omeprazole 40mg Capsule] PO 03/23/18 08:59 DAILY ERUM Non-Formulary Medication 1 tab 02/21/18 09:00 Losartan/Hydrochlorothiazide [Hyzaar 50-12.5 Tablet] PO 03/23/18 08:59 DAILY ERUM ORDERS Category Date Time Status CT head/brain wo con Stat Cat Scan 02/21/18 05:42 Taken XR chest portable Stat Exams 02/21/18 05:37 Taken Blood Culture Stat Micro 02/21/18 05:50 Received ECG Request by /Jayden Stat Y 02/21/18 05:37 Stop Req Altered Mental Status HPI - General Chief Complaint: Altered Mental Status Stated Complaint: ams Time Seen by Provider: 02/21/18 05:26 Mode of Arrival: EMS Limitations: No Limitations Description of Symptoms (Recalled from ER Triage Doc. by RN): EMS reports family called them after finding pt attempting to urinate in the refrigerator. 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 - History of Present Illness HPI narrative: Patient brought to the ED by EMS after he was found confused and trying to uri [place] in the refrigerator. Unable to obtain reliable information from patient due to his current mental status. Patient denies any acut MD complaint: altered mental status, confusion Onset (ago): hour(s) Timing confirmed by: family member Context: alcohol abuse, drug abuse - Related Data Home Medications Medication Instructions Recorded Confirmed Bisoprolol Fumarate [Zebeta 5mg 5 mg PO DAILY 01/26/18 02/21/18 tablet] Losartan/Hydrochlorothiazide 1 tab PO DAILY 01/26/18 02/21/18 [Hyzaar 50-12.5 Tablet] Omeprazole [Omeprazole 40mg 40 mg PO DAILY 01/26/18 02/21/18 Capsule] Previous Rx's Medication Instructions Recorded Lactulose [Chronulac 20gm/30mL UDC] 30 gm PO QID #120 udc 01/28/18 Nicotine [Nicoderm 21mg/24hr 21 mg TD DAILYP PRN #30 patch.td24 01/28/18 patch] hydroCHLOROthiazide [HCTZ 25mg 12.5 mg PO DAILY tab 01/28/18 tab] levoFLOXacin [Levaquin 500mg 500 mg PO DAILY #7 tab 01/28/18 tab] metroNIDAZOLE [Flagyl] 500 mg PO TID #30 tab 01/28/18 Allergies Allergy/AdvReac Type Severity Reaction Status Date / Time No Known Allergies Allergy Verified 02/21/18 05:30 [facility] History I have reviewed the patient's past medical history: Yes Medical History: Reports:: Hepatitis (hx of hep c/ status post harvoni infusion), Hypertension Denies:: Cancer, Diabetes Mellitus Type 1, Diabetes Mellitus Type 2, MRSA Other Medical History: Reports: Liver Disease, Sinus Problems Other Surgeries: Yes: Angiogram, Cardiac Catheterization, Colonoscopy, EGD, Other ( cyst removed ) Amputation: No Fractures: No - Social History Smoking Status: Current every day smoker Tobacco Type: cigarettes # Packs/Day (cigarettes): 2 #Yrs smoked (if former smoker): 35 Alcohol Intake: never Alcohol Intake Frequency:: other Substance Use Type: IV drugs Occupational Status: disabled Housing: other - Psychiatric History Expresses thoughts of harming self/others: None Suicide Plan Description: No Plan Family Hx:: Heart Attack, Stroke, Diabetes, Hyperlipidemia, Cancer ROS Obtained: Yes unobtainable due to mental status Physical Exam - General General appearance: alert, in no apparent distress - Head Head exam: atraumatic, normocephalic, normal inspection - Eye Eye exam: Present: normal appearance, PERRL, EOMI - ENT ENT exam: Present: normal exam, normal oropharynx, mucous membranes moist, TM's normal bilaterally, normal external ear exam - Neck Neck exam: Present: normal inspection, full ROM, trachea midline. Absent: meningismus, lymphadenopathy - Chest Chest inspection: Present: normal inspection, symmetric chest wall rise. Absent: tenderness - Respiratory Respiratory exam: Present: normal lung sounds bilaterally. Absent: respiratory distress - Cardiovascular Cardiovascular exam: Present: regular rate, normal rhythm. Absent: JVD - Abdominal Exam Abdominal exam: Present: soft, normal bowel sounds. Absent: distention, tend erness, guarding - Extremities Exam Extremities exam: Present: normal inspection, full ROM, normal capillary refill. Absent: calf tenderness - Back Exam Back exam: Present: normal inspection. Absent: tenderness - Neurological Exam Neurological exam: Present: alert, other (Oriented to place only) - Psychiatric Psychiatric exam: Present: normal affect, normal mood - Skin Skin exam: Present: warm, dry, intact, normal color - Lymphatic Lymphatic Findings: no adenopathy
--- NOTE | 2018-02-21 16:22 | History & Physical Report ---
*Admission Date: 02/21/18 *Chief complaint: Hepatic encephalopathy *History of present illness: Patient was admitted this am for altered mental status, hepatic encephalopathy. He was apparently found "delirious" and was unable to answer most questions posed to him in the ER. He is now, however, alert and oriented and answering questions appropriately. He was hospitalized at approximately 10 days ago for what he states was kidney failure. States that he had an NG tube placed and had a lactulose enema for what sounds like a bowel obstruction as well. He has a history of cirrhosis of the liver and has had Hepatitis C successfully treated with Harvoni. States he no longer uses alcohol or drugs. No longer sees gastroenterology because she no longer comes to [facility] and he doesn't drive. Takes Lactulose. Has had a 40 pound weight gain and has swelling in his legs. Denies swelling in his abdomen and denies paracentesis. Has had intermittent chest pain but did not see cardiology when previously referred on outpatient basis due to lack of transportation. States he has intermittent episodes of "delirium" without provocation. [facility] History I have reviewed the patient's past medical history: Yes Medical History: Reports:: Hepatitis (hx of hep c/ status post harvoni infusion), Hypertension Denies:: Cancer, Diabetes Mellitus Type 1, Diabetes Mellitus Type 2, MRSA Other Medical History: Reports: Liver Disease, Sinus Problems Other Surgeries: Yes: Angiogram, Cardiac Catheterization, Colonoscopy, EGD, Other ( cyst removed ) Amputation: No Fractures: No - *Social History Smoking Status: Current every day smoker Tobacco Type: cigarettes # Packs/Day (cigarettes): 2 #Yrs smoked (if former smoker): 35 Alcohol Intake: never Alcohol Intake Frequency:: other Substance Use Type: IV drugs Occupational Status: disabled Housing: other Household Members: none - Psychiatric History Expresses thoughts of harming self/others: None Suicide Plan Description: No Plan *Family Hx:: Heart Attack, Stroke, Diabetes, Hyperlipidemia, Cancer Review of Systems - Review of Systems Review of systems:: pertinent systems reviewed and negative unless documented below - Constitutional Reports weight gain, Reports other (feels feverish) - *Cardiovascular Reports chest pain, Reports leg swelling - *Gastrointestinal Reports loose stools - *Neurologic Reports tremor(s) - Psychiatric Reports memory loss Meds Home Medications Medication Instructions Recorded Confirmed Type Bisoprolol Fumarate [Zebeta 5mg 5 mg PO DAILY 01/26/18 02/21/18 History tablet] Losartan/Hydrochlorothiazide 1 tab PO DAILY 01/26/18 02/21/18 History [Hyzaar 50-12.5 Tablet] Omeprazole [Omeprazole 40mg 40 mg PO DAILY 01/26/18 02/21/18 History Capsule] Allergies Allergy/AdvReac Type Severity Reaction Status Date / Time No Known Allergies Allergy Verified 02/21/18 05:30 Exam Vital signs and Labs for Last 24 Hours: Temp Pulse Resp BP Pulse Ox 98.3 F 70 20 117/59 99 02/21/18 15:34 02/21/18 15:34 02/21/18 15:34 02/21/18 15:34 02/21/18 08:53 Laboratory Results - last 24 hr 02/21/18 05:50: WBC 5.8, RBC 3.20 L, Hgb 10.7 L, Hct 33.4 L, MCV 104.3 H, MCH 33.3 H, MCHC 31.9, RDW 14.6, Plt Count 105 L, MPV 12.2 H, Neut % (Auto) 64.8, Lymph % (Auto) 27.1, [place] % (Auto) 6.8, Eos % (Auto) 1.2, Baso % (Auto) 0.1, Neut # (Auto) 3.8, Lymph # (Auto) 1.6, [place] # (Auto) 0.4, Eos # (Auto) 0.1, Baso # (Auto) 0.0 02/21/18 05:50: Sodium 143, Potassium 3.9, Chloride 110 H, Carbon Dioxide 24, Anion Gap 12.9, BUN 27 H, Creatinine 2.13 H, Estimated Creat Clear 44, Estimated GFR 32 L, Est GFR ( Amer) 39 L, Glucose 99, Calcium 7.9 L, Magnesium 1.6, Total Bilirubin 1.2 H, Direct Bilirubin 0.5 H, Indirect Bilirubin 0.7, AST 30, ALT 20, Alkaline Phosphatase 127 H, Troponin I < 0.02, Total Protein 6.2 L D, Albumin 2.4 L, TSH 1.64 D, Plasma/Serum Alcohol 0 02/21/18 05:50: Lactate 1.9 02/21/18 05:50: Ammonia 125 H 02/21/18 07:00: Urine Color Yellow, Urine Appearance Clear, Urine pH 6.0, Ur Specific [place] <= 1.005, Urine Protein Negative, Urine Glucose (UA) Negative, Urine Ketones Negative, Urine Blood Negative, Urine Nitrate Negative, Urine Bilirubin Negative, Urine Urobilinogen 0.2, Ur Leukocyte Esterase Negative, Urine WBC 5-10, Ur Squamous Epith Cells 5-10 02/21/18 07:00: Urine Opiates Screen Negative, Urine Methadone Screen Negative, Ur Barbituates Screen Negative, Ur Phencyclidine Scrn Negative, Ur Amphetamines Screen Negative, U Benzodiazepines Scrn Negative, Urine Cocaine Screen Negative, U Marijuana (THC) Screen Negative I & O for Last 24 hours: Intake & Output 02/19/18 02/20/18 02/21/18 02/22/18 11:59 11:59 11:59 11:59 Intake Total 240 / 240 360 / 360 Output Total 200 / 200 Balance 240 / 240 160 / 160 Weight 202 lb - Constitutional no acute distress, cooperative - *Routine HEENT Exam Head: Present: normocephalic, atraumatic Eye: Present: PERRL ENT: Present: mucous membranes moist, nares patent, TM's clear bilaterally - *Routine Neck Exam Present: supple, full ROM. Absent: lymphadenopathy, meningismus - Routine Chest/Breast/Axilla Exam Chest wall: Absent: tenderness - *Routine Respiratory Exam Present: CTA bilaterally. Absent: accessory muscle use, respiratory distress - *Routine Cardiovascular Exam Present: RRR. Absent: murmur - *Routine Abdominal Exam Present: soft, normoactive bowel sounds, distended. Absent: guarding, rigid - *Routine Extremities Exam Present: edema. Absent: cyanosis, clubbing, calf tenderness - *Routine Skin Exam Present: intact. Absent: cyanosis, erythema - *Routine Neurological Exam Present: alert, oriented X3, tremors - Routine Psychiatric Exam Present: normal affect, normal thought process, cooperative, good insight Assessment and Plan (1) Altered mental status Current visit: Yes Status: Resolved Category: Medical Code(s): R41.82 - Altered mental status, unspecified (2) Chest pain Current visit: No Status: Acute Qualifiers: Chest pain type: unspecified Qualified Code(s): R07.9 - Chest pain, unspecified Category: Medical Code(s): R07.9 - Chest pain, unspecified (3) Acute renal failure Current visit: No Status: Acute Qualifiers: Acute renal failure type: unspecified Qualified Code(s): N17.9 - Acute ki dney failure, unspecified Category: Medical Code(s): N17.9 - Acute kidney failure, unspecified - Assessment and plan all Dx Assessment and Plan for all problems:: Cardiology consult tomorrow. Gastroenterology follow up as outpatient.
[2018-02-22 08:10] LABS: Basophils % 0.2 % (0.1-2.0); Eosinophils # 0.1 K/mm3 (0.0-0.4); Eosinophils % 1.3 % (0.1-12.0); Hematocrit 30.9 % (42.0-52.0); Hemoglobin 9.7 g/dL (14.1-18.0); Lymphocytes # 2.1 K/mm3 (0.7-4.5); Lymphocytes % 46.1 K/mm3 (10-50); Mean Corpuscular HGB Conc 31.6 g/dL (31.8-35.4); Mean Corpuscular Volume 104.5 fl (80-94); Mean Platelet Volume 10.7 fl (7.4-10.4); Monocytes # 0.3 K/mm3 (0.1-1.0); Monocytes % 7.5 % (1.7-9.3); Neutrophils % 44.8 % (37.0-80.0); Platelet Count 101 K/mm3 (142-424); Red Blood Count 2.96 M/mm3 (4.60-6.20); Red Cell Distribution Width 14.8 % (11.5-17.5); White Blood Count 4.5 K/mm3 (4.8-10.8)
[2018-02-22 08:12] LABS: Anion Gap 10.9 mEq/L (5-15); Calcium 7.9 mg/dL (8.5-10.1); Potassium 3.9 mmoL/L (3.5-5.1)
--- NOTE | 2018-02-22 08:36 | Progress Note ---
Internal Medicine - PN: Subj *Date: 02/22/18 *Time: 08:33 Interval history: pt doing better as ammonia down and renal function better- having card consult Exam Vital signs and Labs for Last 24 Hours: Temp Pulse Resp BP Pulse Ox 98.3 F 74 18 123/67 99 02/22/18 08:00 02/22/18 08:00 02/22/18 08:00 02/22/18 08:00 02/22/18 08:00 Laboratory Results - last 24 hr 02/21/18 21:05: Ammonia 52 02/22/18 07:55: WBC 4.5 L, RBC 2.96 L, Hgb 9.7 L, Hct 30.9 L, MCV 104.5 H, MCH 33.0 H, MCHC 31.6 L, RDW 14.8, Plt Count 101 L, MPV 10.7 H, Neut % (Auto) 44.8, Lymph % (Auto) 46.1, [place] % (Auto) 7.5, Eos % (Auto) 1.3, Baso % (Auto) 0.2, Neut # (Auto) 2.0, Lymph # (Auto) 2.1, [place] # (Auto) 0.3, Eos # (Auto) 0.1, Baso # (Auto) 0.0 02/22/18 07:55: Sodium 149 H, Potassium 3.9, Chloride 116 H, Carbon Dioxide 26, Anion Gap 10.9, BUN 20 H D, Creatinine 1.60 H D, Estimated Creat Clear 66, Estimated GFR 45 L, Est GFR ( Amer) 54 L D, Glucose 85, Calcium 7.9 L I & O for Last 24 hours: Intake & Output 02/19/18 02/20/18 02/21/18 02/22/18 11:59 11:59 11:59 11:59 Intake Total 240 / 240 2045 / 2045 Output Total 850 / 850 Balance 240 / 240 1195 / 1195 Weight 202 lb - Constitutional no acute distress - *Routine HEENT Exam Head: Present: normocephalic Eye: Present: EOMI, PERRL ENT: Present: mucous membranes dry - *Routine Neck Exam Present: supple - *Routine Respiratory Exam Present: CTA bilaterally - *Routine Cardiovascular Exam Present: RRR, murmur - *Routine Abdominal Exam Present: soft - *Routine Extremities Exam Present: edema. Absent: calf tenderness - *Routine Skin Exam Present: intact - *Routine Neurological Exam Present: alert, oriented X3, CN II-XII intact - Routine Psychiatric Exam Present: normal affect Assessment and Plan (1) Altered mental status Current visit: Yes Status: Resolved Category: Medical Code(s): R41.82 - Altered mental status, unspecified (2) Chest pain Current visit: No Status: Acute Qualifiers: Chest pain type: unspecified Qualified Code(s): R07.9 - Chest pain, unspecified Category: Medical Code(s): R07.9 - Chest pain, unspecified (3) Acute renal failure Current visit: No Status: Acute Qualifiers: Acute renal failure type: unspecified Qualified Code(s): N17.9 - Acute kidney failure, unspecified Category: Medical Code(s): N17.9 - Acute kidney failure, unspecified (4) Tobacco use Current visit: Yes Status: Acute Category: Social Hx Code(s): Z72.0 - Tobacco use (5) Hepatic encephalopathy Current visit: Yes Status: Acute Category: Medical Code(s): K72.90 - Hepatic failure, unspecified without coma (6) Anemia Current visit: Yes Status: Acute Qualifiers: Anemia type: unspecified type Qualified Code(s): D64.9 - Anemia, unspecified Category: Medical Code(s): D64.9 - Anemia, unspecified
[2018-02-22 09:23] LABS: INR 1.36 (0.9-1.1); Prothrombin Time 13.9 seconds (9.4-11.8)
--- NOTE | 2018-02-22 14:28 | Discharge Summary ---
General - General Admission date:: 02/21/18 Discharge date: 02/22/18 HPI HPI: Patient was admitted this am for altered mental status, hepatic encephalopathy. He was apparently found "delirious" and was unable to answer most questions posed to him in the ER. He is now, however, alert and oriented and answering questions appropriately. He was hospitalized at approximately 10 days ago for what he states was kidney failure. States that he had an NG tube placed and had a lactulose enema for what sounds like a bowel obstruction as well. He has a history of cirrhosis of the liver and has had Hepatitis C successfully treated with Harvoni. States he no longer uses alcohol or drugs. No longer sees gastroenterology because she no longer comes to [facility] and he doesn't drive. Takes Lactulose. Has had a 40 pound weight gain and has swelling in his legs. Denies swelling in his abdomen and denies paracentesis. Has had intermittent chest pain but did not see cardiology when previously referred on outpatient basis due to lack of transportation. States he has intermittent episodes of "delirium" without provocation. Hospital Course Hospital Course: pt reports feeling better today and mentation better and no current chest pain but reports of sharp chest pain in recent past- pt doing better today - we discussed liver and renal status -pt was seen by card today and reported to be ok to be followed as op Objective Vital signs: Temp Pulse Resp BP Pulse Ox 98.3 F 74 18 123/67 99 02/22/18 08:00 02/22/18 08:00 02/22/18 08:00 02/22/18 08:00 02/22/18 08:00 no acute distress - *Routine HEENT Exam Head: Present: normocephalic Eye: Present: EOMI, PERRL ENT: Present: mucous membranes dry - *Routine Neck Exam Present: supple. Absent: JVD, thyromegaly - *Routine Respiratory Exam Present: CTA bilaterally - *Routine Cardiovascular Exam Present: RRR, murmur, S4 - *Routine Abdominal Exam Present: soft - *Routine Extremities Exam Absent: calf tenderness - *Routine Skin Exam Present: intact - *Routine Neurological Exam Present: alert, oriented X3, CN II-XII intact - Routine Psychiatric Exam Present: normal affect Results Labs on day of discharge: Labs from last 24 hours 02/22/18 02/22/18 02/22/18 09:00 07:55 07:55 WBC 4.5 L RBC 2.96 L Hgb 9.7 L Hct 30.9 L MCV 104.5 H MCH 33.0 H MCHC 31.6 L RDW 14.8 Plt Count 101 L MPV 10.7 H Neut % (Auto) 44.8 Lymph % (Auto) 46.1 [place] % (Auto) 7.5 Eos % (Auto) 1.3 Baso % (Auto) 0.2 Neut # (Auto) 2.0 Lymph # (Auto) 2.1 [place] # (Auto) 0.3 Eos # (Auto) 0.1 Baso # (Auto) 0.0 PT 13.9 H INR 1.36 H Sodium 149 H Potassium 3.9 Chloride 116 H Carbon Dioxide 26 Anion Gap 10.9 BUN 20 H D Creatinine 1.60 H D Estimated Creat Clear 66 Estimated GFR 45 L Est GFR ( Amer) 54 L D Glucose 85 Calcium 7.9 L Ammonia 02/21/18 21:05 WBC RBC Hgb Hct MCV MCH MCHC RDW Plt Count MPV Neut % (Auto) Lymph % (Auto) [place] % (Auto) Eos % (Auto) Baso % (Auto) Neut # (Auto) Lymph # (Auto) [place] # (Auto) Eos # (Auto) Baso # (Auto) PT INR Sodium Potassium Chloride Carbon Dioxide Anion Gap BUN Creatinine Estimated Creat Clear Estimated GFR Est GFR ( Amer) Glucose Calcium Ammonia 52 DS: Diagnosis - Discharge Diagnosis (1) Altered mental status Status: Resolved (2) Chest pain Status: Acute (3) Acute renal failure Status: Acute (4) Tobacco use Status: Acute (5) Hepatic encephalopathy Status: Acute (6) Anemia Status: Acute Discharge Plan - Patient Discharge Instructions ACTIVITY: Continue current activity DIET: continue same diet - Follow up Plan Disposition: Home, Self-Retirement Medications: Home Medications Medication Instructions Recorded Confirmed Type Bisoprolol Fumarate [Zebeta 5mg 5 mg PO DAILY 01/26/18 02/21/18 History tablet] Losartan/Hydrochlorothiazide 1 tab PO DAILY 01/26/18 02/21/18 History [Hyzaar 50-12.5 Tablet] Omeprazole [Omeprazole 40mg 40 mg PO DAILY 01/26/18 02/21/18 History Capsule] Tizanidine HCl [Zanaflex 4mg 4 mg PO TID 02/22/18 02/22/18 History tablet] Prescriptions/Medication Reconciliation: New Lactulose [Chronulac 20gm/30mL UDC] 20 gm PO QID udc Continue Omeprazole [Omeprazole 40mg Capsule] 40 mg PO DAILY Losartan/Hydrochlorothiazide [Hyzaar 50-12.5 Tablet] 1 tab PO DAILY Bisoprolol Fumarate [Zebeta 5mg tablet] 5 mg PO DAILY Nicotine [Nicoderm 21mg/24hr patch] 21 mg TD DAILYP PRN #30 patch.td24 PRN Reason: Nicotine Cravings Tizanidine HCl [Zanaflex 4mg tablet] 4 mg PO TID Lactulose [Chronulac 20gm/30mL UDC] 30 gm PO QID #120 udc
--- NOTE | 2018-02-22 15:35 | Consult Report ---
History of Present Illness Consult date: 02/22/18 Requesting physician: Nithin Roman Consult reason: chest pain, shortness of breath Chief complaint: Chest pain and shortness of breath Additional Medical History:: 1. Altered mental status change (Resolved) 2. Hepatic encephalopathy (Diagnosed in 2018) 3. Hepatitis C (2018) 4. Tobacco abuse disorder a. Smokes 1-2 packs per day over the past 20 years. 5. History of hypertension 6. Elevated ammonia level History of present illness: 57-year-old male presented to the emergency room with altered mental status change on 02/21/2018. Patient also complained of chest pain and shortness of breath. Patient was unable to describe his chest pain due to confusion. Upon examination in the ER, patient was noted to have elevated ammonia level causing his confusion. Patient is alert and oriented appropriately 3. States on occasion he has intermittent chest pain nonradiating lasting 2-3 seconds which resolves with rest. Complains of shortness of breath with exertion when walking long distance. Edema noted of the lower extremities. Vital signs are stable at this time. Patient does have history of hypertension. Patient stated he was given the diagnosis of Hepatic encephalopathy and Hepatitis C 1 month ago. Pt does admit to drinking alcohol but will not state how much he drinks daily. Initial EKG reveals normal sinus rhythm with a heart rate of 62 bpm. Echocardiogram was performed. Preliminary results revealed EF of 50% with mild to moderate mitral regurgitation and tricuspid regurgitation. Ammonia level is stable. Creatinine 1.60 BUN 20. Patient stated he was to follow-up in cardiology clinic a few months ago but did not due to not having transportation. Cardiac workup does need to be performed on this patient such as a stress test. This can be performed on an outpatient basis. This case was discussed with Dr. Pruitt recommending echocardiogram prior to discharge and a cardiac clinic follow-up in 1 week. [facility] History Medical History: Reports:: Hepatitis (hx of hep c/ status post harvoni infusion), Hypertension Denies:: Cancer, Diabetes Mellitus Type 1, Diabetes Mellitus Type 2, MRSA Other Medical History: Reports: Liver Disease, Sinus Problems Other Surgeries: Yes: Angiogram, Cardiac Catheterization, Colonoscopy, EGD, Other ( cyst removed ) Amputation: No Fractures: No - *Social History Smoking Status: Current every day smoker Tobacco Type: cigarettes # Packs/Day (cigarettes): 2 #Yrs smoked (if former smoker): 35 Alcohol Intake: never Alcohol Intake Frequency:: other Substance Use Type: IV drugs Occupational Status: disabled Housing: other Household Members: none - Psychiatric History Expresses thoughts of harming self/others: None Suicide Plan Description: No Plan *Family Hx:: Heart Attack, Stroke, Diabetes, Hyperlipidemia, Cancer Meds Home Medications Medication Instructions Recorded Confirmed Type Bisoprolol Fumarate [Zebeta 5mg 5 mg PO DAILY 01/26/18 02/21/18 History tablet] Losartan/Hydrochlorothiazide 1 tab PO DAILY 01/26/18 02/21/18 History [Hyzaar 50-12.5 Tablet] Omeprazole [Omeprazole 40mg 40 mg PO DAILY 01/26/18 02/21/18 History Capsule] Tizanidine HCl [Zanaflex 4mg 4 mg PO TID 02/22/18 02/22/18 History tablet] Allergies Allergy/AdvReac Type Severity Reaction Status Date / Time No Known Allergies Allergy Verified 02/21/18 05:30 Review of Systems - Review of Systems Review of systems:: pertinent systems reviewed and negative unless documented below - Constitutional Reports fatigue, Reports lack of energy, Reports weakness, Reports weight gain - *Cardiovascular Reports chest pain, Reports chest pain with activity, Reports shortness of breath, Reports shortness of breath with activity, Reports generalized swelling, Denies chest pain at rest, Denies irregular heart rhythm, Denies rapid, pounding, or irregular heartbeat, Denies radiating jaw, neck or arm pain - *Respiratory Reports shortness of breath, Denies chest congestion, Denies cough, Denies shortness of breath with activity, Denies wheezing - *Gastrointestinal Reports abdominal pain, Reports bloating - *Genitourinary Denies difficulty urinating - *Musculoskeletal Reports muscle weakness, Denies abnormal walking - *Neurologic Reports localized weakness, Reports memory loss, Reports tremor(s), Denies dizziness Exam Vital signs and Labs for Last 24 Hours: Temp Pulse Resp BP Pulse Ox 98.3 F 74 18 123/67 99 02/22/18 08:00 02/22/18 08:00 02/22/18 08:00 02/22/18 08:00 02/22/18 08:00 Laboratory Results - last 24 hr 02/21/18 21:05: Ammonia 52 02/22/18 07:55: WBC 4.5 L, RBC 2.96 L, Hgb 9.7 L, Hct 30.9 L, MCV 104.5 H, MCH 33.0 H, MCHC 31.6 L, RDW 14.8, Plt Count 101 L, MPV 10.7 H, Neut % (Auto) 44.8, Lymph % (Auto) 46.1, [place] % (Auto) 7.5, Eos % (Auto) 1.3, Baso % (Auto) 0.2, Neut # (Auto) 2.0, Lymph # (Auto) 2.1, [place] # (Auto) 0.3, Eos # (Auto) 0.1, Baso # (Auto) 0.0 02/22/18 07:55: Sodium 149 H, Potassium 3.9, Chloride 116 H, Carbon Dioxide 26, Anion Gap 10.9, BUN 20 H D, Creatinine 1.60 H D, Estimated Creat Clear 66, Estimated GFR 45 L, Est GFR ( Amer) 54 L D, Glucose 85, Calcium 7.9 L 02/22/18 09:00: PT 13.9 H, INR 1.36 H I & O for Last 24 hours: Intake & Output 02/19/18 02/20/18 02/21/18 02/22/18 23:59 23:59 23:59 23:59 Intake Total 960 / 960 1565 / 1565 Output Total 850 / 850 Balance 110 / 110 1565 / 1565 Weight 202 lb 202 lb 0.012 oz - Constitutional no acute distress, average body habitus, cooperative - *Routine HEENT Exam Head: Present: normocephalic ENT: Present: mucous membranes moist - *Routine Neck Exam Present: supple, full ROM, normal carotid upstroke, trachea midline. Absent: JVD, carotid bruit, lymphadenopathy - Routine Chest/Breast/Axilla Exam Chest wall: Present: tenderness. Absent: mass, pacemaker Axillae: Absent: lymphadenopathy, mass - *Routine Respiratory Exam Present: accessory muscle use, CTA bilaterally. Absent: respiratory distress - *Routine Cardiovascular Exam Present: RRR, Normal S1, Normal S2. Absent: murmur, gallop, rubs, click, bradycardia, tachycardia, irregular rhythm, JVD - *Routine Abdominal Exam Present: soft, normoactive bowel sounds, distended, firm - *Routine Extremities Exam Present: edema, full ROM, pulses intact, normal capillary refill. Absent: cyanosis, clubbing - *Routine Skin Exam Present: intact, dry, warm. Absent: cyanosis, erythema, pallor, lesions, wounds - *Routine Neurological Exam Present: alert, oriented X3, CN II-XII intact, moving all extremities, normal speech Assessment and Plan (1) Chest pain Status: Acute Qualifiers: Chest pain type: unspecified Qualified Code(s): R07.9 - Chest pain, unspecified Category: Medical Code(s): R07.9 - Chest pain, unspecified (2) Acute renal failure Status: Acute Qualifiers: Acute renal failure type: unspecified Qualified Code(s): N17.9 - Acute kidney failure, unspecified Category: Medical Code(s): N17.9 - Acute kidney failure, unspecified (3) Tobacco use Status: Acute Category: Social Hx Code(s): Z72.0 - Tobacco use (4) Hepatic encephalopathy Status: Acute Category: Medical Code(s): K72.90 - Hepatic failure, unspecified without coma (5) Anemia Status: Acute Qualifiers: Anemia type: unspecified type Qualified Code(s): D64.9 - Anemia, unspecified Category: Medical Code(s): D64.9 - Anemia, unspecified (6) Cirrhosis Status: Acute Category: Medical Code(s): K74.60 - Unspecified cirrhosis of liver - Assessment and plan all Dx Assessment and Plan for all problems:: Plan: 1. Schedule echocardiogram for today to assess LV function and valve status. 2. No further testing is needed at this time. 3. Follow-up in cardiology clinic in 1 week after discharge.
--- NOTE | 2018-02-22 20:22 | Cardiology Report ---
PROCEDURE: 2-D M-mode and color Doppler study INDICATIONS FOR THE TEST: Chest pain COPD+ Heart Murmur Tobacco Smoking + Palpitations Fatigue Syncope Edema+ Hypertension+Diabetes Mellitus Rheumatic Fever SOB CURRY Obesity Hyperlipidemia Family History HD Additional History KIDNEY FAILURE AT 10 DAYS AGO. CIRRHOSIS, HEP C PATIENT INFORMATION HEIGHT: 68 WEIGHT:202 GENDER: Male B/P:117/59 2-D/M-MODE INTERPRETATION: 2-D MEASUREMENTS OBSERVED VALUES IN CMS Right Ventricular Dimension (RVDd) 2.8 Interventricular Septum (Thickness)(IVsd) 1.4 Left Ventricular Internal Dimensions(LVIDd) 3.3 Left Ventricular Posterior Wall (Thickness)(LVPWd) 1.3 Aortic Root 4.1 Aortic Cusp Separation 2.0 Left Atrial Dimensions (LAD) 5.0 2D 1. Left atrium is moderately enlarged, left ventricle is normal size, concentric left ventricular hypertrophy, visually estimated ejection fraction 55% with no regional wall motion abnormality. 2. The right atrium and right ventricle are mildly enlarged with normal contractility. 3. The aortic valve is minimally thickened and fibrosed. 4. The mitral and tricuspid valvular grossly normal. 5. The pulmonic valve is poorly visualized. 6. No significant pericardial effusion noted. DOPPLER INTERROGATION: Doppler interrogation of the aortic, mitral and tricuspid valvular presence of mild mitral and tricuspid regurgitation, calculated right ventricular systolic pressure is 61 mmHg consistent with moderate pulmonary hypertension, diastolic parameters are inconclusive. CONCLUSION: 1. Moderately enlarged left atrium, normal left ventricular size, mild concentric left ventricular hypertrophy, visually estimated ejection fraction 55% with no regional wall motion abnormality diastolic parameters are inconclusive. 2. Mild mitral and tricuspid regurgitation, calculated right ventricular systolic pressure 61 mmHg consistent with moderate pulmonary hypertension. 3. No significant pericardial effusion noted.
== END 2018-02-22 15:23 | disposition home or self-care (01) ==
LOC: ER 05:23 → 2ND 07:43
PROVIDERS: ADMIT Emergency Medicine; ATTEND Emergency Medicine

== ENCOUNTER → 2018-03-08 08:40 | Outpatient (POV) | payer SELFPAY ==
[2018-03-08 10:08] LABS: Basophils % 0.3 % (0.1-2.0); Eosinophils # 0.1 K/mm3 (0.0-0.4); Eosinophils % 1.1 % (0.1-12.0); Hematocrit 31.8 % (42.0-52.0); Lymphocytes # 1.9 K/mm3 (0.7-4.5); Lymphocytes % 33.9 K/mm3 (10-50); Mean Corpuscular HGB Conc 31.5 g/dL (31.8-35.4); Mean Corpuscular Hemoglobin 32.4 pg (27.0-31.2); Mean Corpuscular Volume 102.9 fl (80-94); Monocytes # 0.6 K/mm3 (0.1-1.0); Monocytes % 11.2 % (1.7-9.3); Neutrophils % 53.5 % (37.0-80.0); Platelet Count 101 K/mm3 (142-424); Red Blood Count 3.09 M/mm3 (4.60-6.20); Red Cell Distribution Width 15.2 % (11.5-17.5); White Blood Count 5.6 K/mm3 (4.8-10.8)
[2018-03-08 10:09] LABS: INR 1.27 (0.9-1.1)
[2018-03-08 11:02] LABS: Alanine Aminotransferase 30 U/L (12-78); Albumin Level 2.2 gm/dL (3.4-5.0); Albumin/Globulin Ratio 0.6 (1.1-1.8); Alkaline Phosphatase 222 U/L (46-116); Anion Gap 7.9 mEq/L (5-15); Aspartate Amino Transferase 37 U/L (15-37); Bilirubin,Total 0.6 mg/dL (0.2-1.0); Blood Urea Nitrogen 7 mg/dL (7-18); Carbon Dioxide 27 mmol/L (21.0-32.0); Chloride 110 mmol/L (98-107); Estimated Glomerular Filt Rate 77 ml/min (>60); Ferritin 183 ng/mL (8-388); GFR (African American) 93 ML/MIN (>60); Glucose 72 mg/dL (74-106); Potassium 3.9 mmoL/L (3.5-5.1); Sodium 141 mmol/L (136-145); Total Protein,Serum 6.2 gm/dL (6.4-8.2)
[2018-03-09 05:26] LABS: Iron 44 ug/dL (38-169); Iron Saturation 27 % (15-55); UIBC 121 ug/dL (111-343)
[2018-03-09 07:39] LABS: Folate 5.8 ng/mL (>3.0); Vitamin B12 615 pg/mL (232-1245)
[2018-03-09 07:39] LABS: AFP, Tumor Marker 5.4 ng/mL (0.0-8.3)
== END ==
PROVIDERS: PCP Physician Assistant; Visit Provider Nurse Practitioner Acute Care
DX: R79.89 Other specified abnormal findings of blood chemistry (principal); K72.90 Hepatic failure, unspecified without coma
CPT/HCPCS: 36415; 80053; 82105; 82607; 82728; 82746; 83540; 83550; 85025; 85610

== ENCOUNTER → 2018-04-14 12:09 | Outpatient (CLI) | payer MEDICARE, MEDICAID, SELFPAY ==
[2018-04-14 13:01] LABS: Ammonia 101 umol/L (19-54)
[2018-04-14 13:58] LABS: Alanine Aminotransferase 125 U/L (12-78); Albumin Level 2.8 gm/dL (3.4-5.0); Albumin/Globulin Ratio 0.5 (1.1-1.8); Alkaline Phosphatase 247 U/L (46-116); Aspartate Amino Transferase 163 U/L (15-37); Bilirubin,Total 1.5 mg/dL (0.2-1.0); Blood Urea Nitrogen 17 mg/dL (7-18); Carbon Dioxide 28 mmol/L (21.0-32.0); Chloride 114 mmol/L (98-107); Creatinine,Serum 1.65 mg/dL (0.70-1.30); Estimated Glomerular Filt Rate 43 ml/min (>60); GFR (African American) 52 ML/MIN (>60); Gamma Glutamyl Transpeptidase 94 U/L (15-85); Globulin 5.3 gm/dl (1.3-3.2); Glucose 164 mg/dL (74-106); Sodium 131 mmol/L (136-145); Total Protein,Serum 8.1 gm/dL (6.4-8.2)
[2018-04-15 11:17] LABS: Hep B Core Ab, Total Positive (Negative)
[2018-04-16 07:04] LABS: Hepatitis B Core Antibody IgM Negative (Negative)
[2018-04-16 07:05] LABS: HIV Screen 4th Generation wRfx Non Reactive (Non Reactive); Hep Be Ag Positive (Negative); Hepatitis Be Antibody Negative (Negative)
[2018-04-26 15:11] LABS: HBV Geno CHG YES; HBV IU/mL See Final Results IU/mL (.)
[2018-04-26 16:00] LABS: log10 HBV IU/mL 8.396 (.)
== END ==
PROVIDERS: Nurse Practitioner Acute Care; Visit Provider Nurse Practitioner Acute Care
DX: B19.10 Unspecified viral hepatitis B without hepatic coma (principal); K72.90 Hepatic failure, unspecified without coma; I27.20 Pulmonary hypertension, unspecified; Z11.4 Encounter for screening for human immunodeficiency virus [HIV]
CPT/HCPCS: 36415; 80053; 82140; 82977; 86703; 86704; 86707; 87350; 87517; 87912; G0432

== ENCOUNTER 2018-05-31 05:56 | Inpatient (IN) ==
--- NOTE | 2018-05-31 06:02 | Emergency Department Note ---
ED Disposition Clinical Impression: Hypokalemia, Hepatic encephalopathy Acute renal failure Qualifiers: Acute renal failure type: unspecified Qualified Code(s): N17.9 - Acute kidney failure, unspecified Hypotension Qualifiers: Hypotension type: unspecified hypotension type Qualified Code(s): I95.9 - Hypotension, unspecified T12 vertebral fracture Qualifiers: Encounter type: initial encounter Fracture type: closed Fracture morphology: unspecified fracture morphology Qualified Code(s): S22.089A - Unspecified fracture of T11-T12 vertebra, initial encounter for closed fracture Disposition: Still a Patient Condition on Discharge: Serious Instructions: DI for Altered Mental Status Referrals: Provider,Referral, MD [Primary Care Provider] - - Critical Care Critical Care Time: Yes Attestation: On , the high probability of a clinically significant, sudden or life threatening deterioration of the following system(s) required my full and direct attention, intervention and personal management. The time I documented below is in addition to time spent performing reported procedures but includes the following listed in this critical care notation. Vital system(s) involved:: Circulatory Failure, Metabolic Failure, Renal Failure My critical care processes included: Assessment & monitoring of V/S, Initial and Re-exams, Data Review/Interpretation, Coordinating Care, Medication Orders and management, Documentation Medical Decision Making - Junaid Inquiry Pt receiving controlled substance: No Vital Signs: 05/31/18 05:57 05/31/18 06:12 05/31/18 07:24 Temperature 97.5 F L Temperature Source Oral Pulse Rate [Right Brachial] 48 L 52 L Respiratory Rate 16 16 Blood Pressure [Right Arm] 81/52 L 80/48 L 100/58 L Blood Pressure Mean [Right Arm] 61 58 72 Blood Pressure Source [Right Arm] Automatic Cuff Manual Cuff/ Auscultation Manual Cuff/ Palpation Blood Pressure Position [Right Arm] Supine Supine Sitting 02 Sat by Pulse Oximetry 98 98 Oxygen Delivery Method Room Air Room Air - Lab Data Lab Results 05/31/18 06:00: Troponin I < 0.02, Salicylates 1.7 L, Acetaminophen 0.1 L, Plasma/Serum Alcohol 0 05/31/18 06:00: WBC 7.1, RBC 3.35 L, Hgb 10.9 L, Hct 34.2 L, MCV 102.3 H, MCH 32.6 H, MCHC 31.9, RDW 15.9, Plt Count 127 L, MPV 10.6 H, Neut % (Auto) 53.8, Lymph % (Auto) 37.0, [place] % (Auto) 7.4, Eos % (Auto) 1.5, Baso % (Auto) 0.3, Neut # (Auto) 3.8, Lymph # (Auto) 2.6, [place] # (Auto) 0.5, Eos # (Auto) 0.1, Baso # (Auto) 0.0 05/31/18 06:00: Sodium 140, Potassium 3.0 L, Chloride 107, Carbon Dioxide 23, Anion Gap 13.0, BUN 15, Creatinine 2.05 H, Estimated Creat Clear 50, Estimated GFR 34 L, Est GFR ( Amer) 41 L, Glucose 92, Calcium 7.6 L, Total Bilirubin 1.0, AST 62 H, ALT 58, Alkaline Phosphatase 150 H, Total Protein 6.2 L , Albumin 2.1 L, Globulin 4.1 H, Albumin/Globulin Ratio 0.5 L 05/31/18 06:00: PT 12.3 H, INR 1.20 H 05/31/18 06:55: Ammonia 66 H 05/31/18 06:55: Lactate 1.0 Result diagrams: 05/31/18 06:00 05/31/18 06:00 Orders (Tests/Meds): ED MEDICATIONS Generic Name Dose Route Start Last Admin Trade Name Freq PRN Reason Stop Dose Admin Sodium Chloride 1,000 mls @ 150 mls/hr 05/31/18 07:30 05/31/18 07:30 Sod Chlor 0.9% 1000ml Bag IV 05/31/18 14:09 150 mls/hr .[id number] ERUM Administration Sodium Chloride 10 ml 05/31/18 06:00 Saline Flush 10ml Syringe IV 06/30/18 05:59 NEEDED PRN Maintain IV Site Discontinued Medications Generic Name Dose Route Start Last Admin Trade Name Freq PRN Reason Stop Dose Admin Potassium Chloride 40 meq 05/31/18 06:59 05/31/18 07:13 Klor-Con 20meq Tablet PO 05/31/18 07:00 40 meq ONCE ONE Administration Sodium Chloride 1,000 ml 05/31/18 06:07 05/31/18 06:35 Sod Chlor 0.9% 1000ml Bag IV 05/31/18 06:08 1,000 ml BOLUS ONE Administration ORDERS Category Date Time Status CT abdomen pelvis wo con Stat Cat Scan 05/31/18 05:[address] cervical spine wo con Stat Cat Scan 05/31/18 05:[address] head/brain wo con Stat Cat Scan 05/31/18 05:[address] lumbar spine wo con Stat Cat Scan 05/31/18 06:[address] thoracic spine wo con Stat Cat Scan 05/31/18 06:00 Taken XR chest portable Stat Exams 05/31/18 05:58 Taken Drug Screen,Urine Stat Lab 05/31/18 05:58 Ordered Urinalysis and Microscopic Stat Lab 05/31/18 05:58 Ordered Blood Culture Stat Micro 05/31/18 06:55 Ordered - CT Data CT Scan: Head, C-Spine, Abdomen, Pelvis, T-Spine, L-Spine Time Received: 07:23 Findings Narrative: CT scan interpreted by [facility] radiologist. Faxed reports received and reviewed: Head: No definite acute intracranial abnormality 7:26 AM Cervical spine: No acute cervical spine fracture 7:30 AM Lumbar spine: No acute fracture 7:43 AM Thoracic spine: Questionable nondisplaced small fracture of the anterior aspect of the T12 vertebral body 8:00 AM Abdomen pelvis: Cirrhosis. Constipation. - ECG Data Tracing #1 EKG interpreted by Mau Reyes MD: Rhythm: sinus bradycardia Rate: 51 Cinebar: normal Ectopy: none Conduction: Prolonged QT, [address] Segment Changes: none T Wave Changes: none Q Waves: none No evidence of acute ischemia or injury - Physician Consults Physician Consulted: María Roman Time: 07:57 Reason -: Admission Comment/Response: Agrees to admit the patient to the hospital. We discussed the patient's clinical information, including history, exam, laboratory and radiology results and ED course. Per hospital procedure, I will write temporary bridge inpatient orders on the patient. Specific orders requested by the admitting physician: Resume lactulose, IV fluids, potassium replacement General Adult HPI - General Chief complaint: Altered Mental Status Stated complaint: CONFUSION Time Seen by Provider: 05/31/18 06:00 - History of Present Illness HPI narrative: Brought by ambulance with multiple complaints. His main complaint is altered mental status. He states "I can feel the dementia coming on" for the past couple of days. This is happened in the past. He says he does not know whether he has been taking his lactulose like he should. Has a history of cirrhosis. Also states that he has fallen multiple times. He fell a couple of weeks ago and also a couple of days ago. He has an abrasion on his right forehead and complains of a headache. He also complains of pain in his entire spine. He says he has chronic pain but it is worse since his falls. He feels generally weak. He is nauseated and feels like he has abdominal distention although he does not have abdominal pain. He has had chest pains and shortness of breath. He denies cough or fever. Denies vomiting or diarrhea. He says he has a former history of drug use, he thinks he last used a couple of weeks ago. States he has not drank alcohol in quite some time. - Related Data Home Medications Medication Instructions Recorded Confirmed Bisoprolol Fumarate [Zebeta 5mg 5 mg PO DAILY 01/26/18 05/31/18 tablet] Omeprazole [Omeprazole 40mg 40 mg PO DAILY 01/26/18 05/31/18 Capsule] Amitriptyline HCl [Elavil 25mg 25 mg PO QHS 05/31/18 05/31/18 tablet] Entecavir 1 mg PO DAILY 05/31/18 05/31/18 Furosemide [Furosemide 20mg Tab] 40 mg PO DAILY 05/31/18 05/31/18 Lactulose [Chronulac 20gm/30mL UDC] 30 gm PO QID 05/31/18 05/31/18 Spironolactone 100 mg PO DAILY 05/31/18 05/31/18 levETIRAcetam [Levetiracetam] 750 mg PO BID 05/31/18 05/31/18 Previous Rx's Medication Instructions Recorded tizanidine 4 mg tablet 4 mg PO TID #90 tab 05/28/18 Allergies Allergy/AdvReac Type Severity Reaction Status Date / Time No Known Allergies Allergy Verified 02/24/18 08:40 [facility] History - Hepatitis A Screen Attestation statement:: This patient has been screened for Hepatitis A risk factors. I have reviewed the patient's past medical history: Yes Medical History: Reports:: Hepatitis, Hypertension Denies:: Cancer, Diabetes Mellitus Type 1, Diabetes Mellitus Type 2, MRSA Other Medical History: Reports: Liver Disease, Sinus Problems Other Surgeries: Yes: Angiogram, Cardiac Catheterization, Colonoscopy, EGD, Other ( cyst removed ) Amputation: No Fractures: No - Social History Smoking Status: Current every day smoker Tobacco Type: cigarettes # Packs/Day (cigarettes): 2 #Yrs smoked (if former smoker): 35 Alcohol Intake: never Alcohol Intake Frequency:: other Substance Use Type: IV drugs Occupational Status: disabled Housing: other Household Members: none Family Hx:: Heart Attack, Stroke, Diabetes, Hyperlipidemia, Cancer ROS Obtained: Yes All systems reviewed & no additional complaints - Constitutional Constitutional: Reports fatigue, Denies fever(s), Reports weakness - Cardiovascular Cardiovascular: Reports chest pain - Respiratory Respiratory: No cough, Yes dyspnea - Gastrointestinal Gastrointestingal: Reports: bloating, nausea. Denies: abdominal pain, vomiting - Musculoskeletal Musculoskeletal: Reports back pain, Reports neck pain - Neurologic Neurologic: Reports headache(s) Physical Exam - General General appearance: alert, in no apparent distress - Head Head exam: other (Abrasion right forehead, superficial) - Eye Eye exam: Present: normal appearance, PERRL, EOMI - ENT ENT exam: Present: mucous membranes moist - Neck Neck exam: Present: normal inspection, full ROM, tenderness - Chest Chest inspection: Present: normal inspection, symmetric chest wall rise - Respiratory Respiratory exam: Present: normal lung sounds bilaterally. Absent: respiratory distress - Cardiovascular Cardiovascular exam: Present: regular rate, normal rhythm, normal heart sounds - Abdominal Exam Abdominal exam: Present: soft, distention (Mild). Absent: tenderness, guarding, rebound - Extremities Exam Extremities exam: Present: normal inspection - Back Exam Back exam: Present: tenderness, vertebral tenderness - Neurological Exam Neurological exam: Present: alert, oriented X3, CN II-XII intact. Absent: motor sensory deficit - Psychiatric Psychiatric exam: Present: normal affect, normal mood - Skin Skin exam: Present: warm, dry
[2018-05-31 06:30] LABS: Basophils % 0.3 % (0.1-2.0); Eosinophils # 0.1 K/mm3 (0.0-0.4); Eosinophils % 1.5 % (0.1-12.0); Hematocrit 34.2 % (42.0-52.0); Hemoglobin 10.9 g/dL (14.1-18.0); Lymphocytes # 2.6 K/mm3 (0.7-4.5); Mean Corpuscular HGB Conc 31.9 g/dL (31.8-35.4); Mean Corpuscular Hemoglobin 32.6 pg (27.0-31.2); Mean Corpuscular Volume 102.3 fl (80-94); Mean Platelet Volume 10.6 fl (7.4-10.4); Monocytes # 0.5 K/mm3 (0.1-1.0); Monocytes % 7.4 % (1.7-9.3); Neutrophils # 3.8 K/mm3 (1.8-7.8); Neutrophils % 53.8 % (37.0-80.0); Platelet Count 127 K/mm3 (142-424); Red Blood Count 3.35 M/mm3 (4.60-6.20); Red Cell Distribution Width 15.9 % (11.5-17.5); White Blood Count 7.1 K/mm3 (4.8-10.8)
[2018-05-31 06:43] LABS: INR 1.2 (0.9-1.1); Prothrombin Time 12.3 seconds (9.4-11.8)
[2018-05-31 06:48] LABS: Albumin Level 2.1 gm/dL (3.4-5.0); Albumin/Globulin Ratio 0.5 (1.1-1.8); Calcium 7.6 mg/dL (8.5-10.1); Globulin 4.1 gm/dl (1.3-3.2); Total Protein,Serum 6.2 gm/dL (6.4-8.2)
[2018-05-31 06:50] LABS: Acetaminophen 0.1 ug/mL (10-30); Salicylate 1.7 mg/dL (2.8-20.0)
[2018-05-31 06:52] LABS: Ethyl Alcohol 0 mg/dL (0-99)
[2018-05-31 09:01] LABS: Microscopic, Urine URINE MICROSCOPIC (MICROSCOPIC)
[2018-05-31 09:03] LABS: Appearance,Urine CLEAR (Clear); Bilirubin,Urine Negative (Negative); Blood, Urine Negative (Negative); Color,Urine YELLOW (Yellow); Glucose,Urine (UA) Negative (Negative); Ketones,Urine TRACE (Negative); Leukocyte Esterase,Urine Negative (Negative); PH,Urine 5.5 (5.0-8.5); Protein,Urine Negative (Negative); Specific Gravity, Urine 1.025 (1.005-1.030); Urobilinogen,Urine 0.2 EU/dl (0.2)
[2018-05-31 09:10] LABS: Amphetamine/Metha Screen,Urine Negative ng/mL (<1000); Barbiturates Screen,Urine Negative ng/mL (<200); Benzodiazepines Screen,Urine Negative ng/mL (<200); Cannabinoid Screen,Urine Negative ng/mL (<50); Cocaine Screen,Urine Negative ng/mL (<300); Methadone Screen,Urine Negative ng/mL (<300); Opiate Screen,Urine Negative ng/mL (<300); Phencyclidine Screen,Urine Negative ng/mL (<25)
[2018-05-31 09:11] LABS: Bacteria,Urine 2+ /lpf; Squamous Epithelial Cell,Urine Occasional #/hpf (0-5)
--- NOTE | 2018-05-31 09:36 | Pharmacy Consult Notes ---
[facility] Pharmacy VTE Monitoring - Patient Demographics Admission date: 05/31/18 Report Date: 05/31/18 Time: 09:36 Allergies/Adverse Reactions: Patient Allergies No Known Allergies Allergy (Verified 02/24/18 08:40) Height: 1.73 m Weight: 88.507 kg Patient Problems: Current Active Problems Hypokalemia (Acute) Acute renal failure (Acute) Hypotension (Acute) T12 vertebral fracture (Acute) Hepatic encephalopathy (Chronic) - VTE Risk Labs: VTE Related Lab Results Hgb 10.9 g/dL (14.1-18.0) L 05/31/18 06:00 Hct 34.2 % (42.0-52.0) L 05/31/18 06:00 Plt Count 127 K/mm3 (142-424) L 05/31/18 06:00 PT 12.3 seconds (9.4-11.8) H 05/31/18 06:00 INR 1.20 (0.9-1.1) H 05/31/18 06:00 BUN 15 mg/dL (7-18) 05/31/18 06:00 Creatinine 2.05 mg/dL (0.70-1.30) H 05/31/18 06:00 Estimated Creat Clear 50 mL/min (50-200) 05/31/18 06:00 Was VTE Risk Assessment Performed: Yes VTE Score: 6 VTE Risk Level: Moderate Risk - Prophylaxis VTE Prophylaxis Ordered?: Yes Types of VTE Prophylaxis: TEDS Knee High Location of Applied Device: Bilateral Lower Extremeties - VTE Diagnosis Confirmed Treatment or plan recommended: Continue Current Treatment
--- NOTE | 2018-05-31 12:05 | History & Physical Report ---
*Admission Date: 05/31/18 *Chief complaint: Fall, mental status changes *History of present illness: 58-year-old white male with long history of multi-substance abuse, alcoholism, drug abuse, who has been on chronic lactulose therapy for hepatic cirrhosis and supportive care over the past several months. He has had several episodes in which she stops taking lactulose and becomes dehydrated/encephalopathic and has in fact had to be transferred to tertiary care center for acute kidney injury in the past year. He apparently lives with some folks who have been "on vacation to [place]" over the past week or so and the patient thinks he is forgotten to take his medication. He has become increasingly somnolent and is fallen a couple of times, causing an abrasion on his forehead. Presented to the emergency department today. Had stigmata of trauma on his forehead. CT scan of head was unremarkable. Also noted to have elevated creatinine and admitted to hospital for IV fluids, reinstitution of his medications. [facility] History I have reviewed the patient's past medical history: Yes Medical History: Reports:: Hepatitis, Hypertension Denies:: Cancer, Diabetes Mellitus Type 1, Diabetes Mellitus Type 2, MRSA Other Medical History: Reports: Liver Disease, Sinus Problems Other Surgeries: Yes: Angiogram, Cardiac Catheterization, Colonoscopy, EGD, Other ( cyst removed ) Amputation: No Fractures: No - *Social History Smoking Status: Current every day smoker Tobacco Type: cigarettes # Packs/Day (cigarettes): 2 #Yrs smoked (if former smoker): 35 Alcohol Intake: former Alcohol Intake Frequency:: other Substance Use Type: crack/cocaine, opiates, IV drugs, methamphetamine Last Used Substance: days (ago) Occupational Status: disabled Housing: other Household Members: none - Psychiatric History Expresses thoughts of harming self/others: None Suicide Plan Description: No Plan *Family Hx:: Heart Attack, Stroke, Diabetes, Hyperlipidemia, Cancer Review of Systems - Review of Systems Review of systems:: unable to obtain Patient somnolent. Review of systems unreliable. Negative for current breathing problems or cardiac complaints however. Does complain of some back pain and head pain but these are chronic findings. - *Neurologic Reports headache(s), Reports weakness Meds Home Medications Medication Instructions Recorded Confirmed Type Bisoprolol Fumarate [Zebeta 5mg 5 mg PO DAILY 01/26/18 05/31/18 History tablet] Omeprazole [Omeprazole 40mg 40 mg PO DAILY 01/26/18 05/31/18 History Capsule] tizanidine 4 mg tablet 4 mg PO TID #90 tab 05/28/18 05/31/18 Rx Amitriptyline HCl [Elavil 25mg 25 mg PO HS 05/31/18 05/31/18 History tablet] Entecavir 1 mg PO DAILY 05/31/18 05/31/18 History Furosemide [Furosemide 20mg Tab] 40 mg PO DAILY 05/31/18 05/31/18 History Lactulose [Chronulac 20gm/30mL UDC] 30 gm PO QID 05/31/18 05/31/18 History Spironolactone 100 mg PO DAILY 05/31/18 05/31/18 History levETIRAcetam [Levetiracetam] 750 mg PO BID 05/31/18 05/31/18 History Allergies Allergy/AdvReac Type Severity Reaction Status Date / Time No Known Allergies Allergy Verified 02/24/18 08:40 Exam Vital signs and Labs for Last 24 Hours: Temp Pulse Resp BP Pulse Ox 98 F 52 L 16 100/52 L 95 05/31/18 09:04 05/31/18 09:04 05/31/18 09:04 05/31/18 09:04 05/31/18 08:39 Laboratory Results - last 24 hr 05/31/18 06:00: Troponin I < 0.02, Salicylates 1.7 L, Acetaminophen 0.1 L, Plasma/Serum Alcohol 0 05/31/18 06:00: WBC 7.1, RBC 3.35 L, Hgb 10.9 L, Hct 34.2 L, MCV 102.3 H, MCH 32.6 H, MCHC 31.9, RDW 15.9, Plt Count 127 L, MPV 10.6 H, Neut % (Auto) 53.8, Lymph % (Auto) 37.0, Harris % (Auto) 7.4, Eos % (Auto) 1.5, Baso % (Auto) 0.3, Neut # (Auto) 3.8, Lymph # (Auto) 2.6, Harris # (Auto) 0.5, Eos # (Auto) 0.1, Baso # (Auto) 0.0 05/31/18 06:00: Sodium 140, Potassium 3.0 L, Chloride 107, Carbon Dioxide 23, Anion Gap 13.0, BUN 15, Creatinine 2.05 H, Estimated Creat Clear 50, Estimated GFR 34 L, Est GFR ( Amer) 41 L, Glucose 92, Calcium 7.6 L, Total Bilirubin 1.0, AST 62 H, ALT 58, Alkaline Phosphatase 150 H, Total Protein 6.2 L , Albumin 2.1 L, Globulin 4.1 H, Albumin/Globulin Ratio 0.5 L 05/31/18 06:00: PT 12.3 H, INR 1.20 H 05/31/18 06:55: Ammonia 66 H 05/31/18 06:55: Lactate 1.0 05/31/18 08:58: Urine Color Yellow, Urine Appearance Clear, Urine pH 5.5, Ur Specific [place] 1.025, Urine Protein Negative, Urine Glucose (UA) Negative, Urine Ketones Trace, Urine Blood Negative, Urine Nitrate Negative, Urine Bilirubin Negative, Urine Urobilinogen 0.2, Ur Leukocyte Esterase Negative, Urine WBC 10-20, Ur Squamous Epith Cells Occasional, Urine Bacteria 2+ 05/31/18 08:58: Urine Opiates Screen Negative, Urine Methadone Screen Negative, Ur Barbituates Screen Negative, Ur Phencyclidine Scrn Negative, Ur Amphetamines Screen Negative, U Benzodiazepines Scrn Negative, Urine Cocaine Screen Negative, U Marijuana (THC) Screen Negative I & O for Last 24 hours: Intake & Output 05/29/18 05/30/18 05/31/18 06/01/18 11:59 11:59 11:59 11:59 Weight 195 lb 2 oz Narrative: Patient in hospital bed. Awakes with tactile and verbal stimuli. Superficial abrasion on right forehead consistent with fall. Heart rate regular. Abdomen soft. Oropharynx clear and dry. Anterior lung trujillo clear. In general appears older than stated age. No scleral icterus. Trace ankle edema noted. Please see nursing documentation for other skin findings. Assessment and Plan (1) Acute kidney injury Current visit: Yes Status: Acute Category: Medical Code(s): N17.9 - Acute kidney failure, unspecified Agree with admission for IV fluids. Watch kidney function tomorrow. (2) T12 vertebral fracture Current visit: Yes Status: Acute Qualifiers: Encounter type: initial encounter Fracture type: closed Fracture morphology: unspecified fracture morphology Qualified Code(s): S22.089A - Unspecified fracture of T11-T12 vertebra, initial encounter for closed fracture Category: Medical Code(s): S22.089A - Unspecified fracture of T11-T12 vertebra, initial encounter for closed fracture Radiology reports are equivocal. Tylenol for pain control. (3) Hepatic encephalopathy Current visit: Yes Status: Chronic Category: Medical Code(s): K72.90 - Hepatic failure, unspecified without coma Restart lactulose. (4) Altered mental status Current visit: No Status: Resolved Category: Medical Code(s): R41.82 - Altered mental status, unspecified Secondary to above problems.
--- NOTE | 2018-06-25 08:38 | Discharge Summary ---
General - General Admission date:: 05/31/18 Discharge date: 05/31/18 HPI HPI: 58-year-old white male with long history of multi-substance abuse, alcoholism, drug abuse, who has been on chronic lactulose therapy for hepatic cirrhosis and supportive care over the past several months. He has had several episodes in which she stops taking lactulose and becomes dehydrated/encephalopathic and has in fact had to be transferred to tertiary care center for acute kidney injury in the past year. He apparently lives with some folks who have been "on vacation to [place]" over the past week or so and the patient thinks he is forgotten to take his medicati on. He has become increasingly somnolent and is fallen a couple of times, causing an abrasion on his forehead. Presented to the emergency department today. Had stigmata of trauma on his forehead. CT scan of head was unremarkable. Also noted to have elevated creatinine and admitted to hospital for IV fluids, reinstitution of his medications. Hospital Course Hospital Course: Patient was admitted - plan from H and P put into place. He requested pain meds other than Tylenol, but I declined given his MS changes and encephalopathy and risk of worsening his condition. He then left the hospital AMA - no rx or f/u plan was given to patient given his decision to leave AMA. Objective Vital signs: Temp Pulse Resp BP Pulse Ox 98 F 52 L 16 100/52 L 95 05/31/18 09:04 05/31/18 09:04 05/31/18 09:04 05/31/18 09:04 05/31/18 08:39 Narrative: Not performed given his AMA dc DS: Diagnosis - Discharge Diagnosis (1) Acute kidney injury Status: Acute (2) T12 vertebral fracture Status: Acute (3) Hepatic encephalopathy Status: Chronic (4) Altered mental status Status: Resolved Discharge Plan - Patient Discharge Instructions - Follow up Plan Disposition: Left Against Medical Advice Home Medications: Home Medications Medication Instructions Recorded Confirmed Type Bisoprolol Fumarate [Zebeta 5mg 5 mg PO DAILY 01/26/18 06/04/18 History tablet] Omeprazole [Omeprazole 40mg 40 mg PO DAILY 01/26/18 06/04/18 History Capsule] tizanidine 4 mg tablet 4 mg PO TID #90 tab 05/28/18 06/04/18 Rx Entecavir 1 mg PO DAILY 05/31/18 06/04/18 History Furosemide [Furosemide 20mg Tab] 40 mg PO DAILY 05/31/18 06/04/18 History Lactulose [Chronulac 20gm/30mL UDC] 30 gm PO QID 05/31/18 06/04/18 History Spironolactone 100 mg PO DAILY 05/31/18 06/04/18 History levETIRAcetam [Levetiracetam] 750 mg PO BID 05/31/18 06/04/18 History Oxycodone HCl/Acetaminophen 1 each PO Q4-6H PRN #14 tab 06/03/18 06/04/18 Rx [Percocet 7.5-325 mg Tablet] amitriptyline 25 mg tablet 25 mg PO HS #90 tab 06/03/18 06/04/18 Rx Prescriptions/Medication Reconciliation: No Action tizanidine 4 mg tablet 4 mg PO TID #90 tab amitriptyline 25 mg tablet 25 mg PO HS #90 tab Omeprazole [Omeprazole 40mg Capsule] 40 mg PO DAILY Bisoprolol Fumarate [Zebeta 5mg tablet] 5 mg PO DAILY levETIRAcetam [Levetiracetam] 750 mg PO BID Spironolactone 100 mg PO DAILY Lactulose [Chronulac 20gm/30mL UDC] 30 gm PO QID Entecavir 1 mg PO DAILY Oxycodone HCl/Acetaminophen [Percocet 7.5-325 mg Tablet] 1 each PO Q4-6H PRN #14 tab PRN Reason: Moderate Pain Furosemide [Furosemide 20mg Tab] 40 mg PO DAILY
== END 2018-05-31 13:16 | disposition left against medical advice (07) | DRG 433 ==
LOC: ER 05:56 → 2ND 08:20
PROVIDERS: ADMIT Internal Medicine Adolescent Medicine; ATTEND Internal Medicine Adolescent Medicine

== ENCOUNTER → 2018-06-25 13:36 | Outpatient (CLI) | payer MEDICARE, MEDICAID, SELFPAY | PROVIDERS: Visit Provider Nurse Practitioner Family | DX: N28.9 Disorder of kidney and ureter, unspecified (principal) | CPT/HCPCS: 87086 ==

== ENCOUNTER 2019-09-20 08:10 | Inpatient (IN) | payer MEDICARE, MEDICAID, SELFPAY ==
[2019-09-20] VITALS (7 sets, daily range): BP systolic 100–190; BP diastolic 58–90; PULSE 75–101; RESP 17–19; TEMP 36.4–37.1; O2SAT 98–100; BMI 31.9; BMI 29.8
--- NOTE | 2019-09-20 08:32 | HMH.EDGENADL ---
ED Disposition Clinical Impression: Hepatic encephalopathy, Peripheral edema, Chronic kidney disease, stage V, Anemia, Chronic back pain, Cirrhosis Disposition: Admitted as Observation Condition on Discharge: Fair Referrals: Elsie Ho PA [Primary Care Provider] - - Critical Care Critical Care Time: No Attestation: On 09/20/19, the high probability of a clinically significant, sudden or life threatening deterioration of the following system(s) required my full and direct attention, intervention and personal management. The time I documented below is in addition to time spent performing reported procedures but includes the following listed in this critical care notation. Medical Decision Making - Medical Records Medical records reviewed: Yes: I reviewed the patient's medical records. - Junaid Inquiry Pt receiving controlled substance: No Vital Signs: 09/20/19 08:27 Temperature 97.5 F L Temperature Source Oral Pulse Rate [Right Radial] 94 H Respiratory Rate 17 Blood Pressure [Right Arm] 190/90 H Blood Pressure Mean [Right Arm] 123 Blood Pressure Source [Right Arm] Manual Cuff/ Auscultation 02 Sat by Pulse Oximetry 100 Oxygen Delivery Method Room Air - Lab Data Lab results reviewed: Yes: I reviewed the patient's lab results. Lab Results 09/20/19 08:40: Urine Color Yellow, Urine Appearance Clear, Urine pH 5.5, Ur Specific [place] 1.020, Urine Protein Negative, Urine Glucose (UA) Negative, Urine Ketones Negative, Urine Blood Negative, Urine Nitrate Negative, Urine Bilirubin Negative, Urine Urobilinogen 0.2, Ur Leukocyte Esterase Negative, Urine RBC 5-10, Urine WBC 3-5, Urine Bacteria None 09/20/19 08:40: WBC 8.9, RBC 3.39 L, Hgb 11.3 L, Hct 35.1 L, MCV 103.5 H, MCH 33.4 H, MCHC 32.3, RDW 14.6, Plt Count 117 L, MPV 11.2 H, Neut % (Auto) 71.9, Lymph % (Auto) 18.5, Carter % (Auto) 6.9, Eos % (Auto) 1.2, Baso % (Auto) 1.6, Neut # (Auto) 6.4, Lymph # (Auto) 1.6, Carter # (Auto) 0.6, Eos # (Auto) 0.1, Baso # (Auto) 0.1 09/20/19 08:40: Troponin I < 0.01 09/20/19 08:40: Sodium 141, Potassium 5.0, Chloride 108 H, Carbon Dioxide 18 L, Anion Gap 20.0 H, BUN 51 H, Creatinine 4.70 H, Estimated Creat Clear 23, Estimated GFR 13 L*, Est GFR ( Amer) 16 L*, Glucose 85, Calcium 9.6, Total Bilirubin 0.8, AST 35, ALT 21, Alkaline Phosphatase 232 H, Total Protein 9.0 H, Albumin 4.7, Globulin 4.3 H, Albumin/Globulin Ratio 1.1 09/20/19 08:40: Ammonia 96 H 09/20/19 08:40: Urine Opiates Screen Negative, Urine Methadone Screen Negative, Ur Barbituates Screen Negative, Ur Phencyclidine Scrn Negative, Ur Amphetamines Screen Negative, U Benzodiazepines Scrn Negative, Urine Cocaine Screen Negative, U Marijuana (THC) Screen Negative 09/20/19 10:10: PT 11.5, INR 1.11 H Result diagrams: 09/20/19 08:40 09/20/19 08:40 Orders (Tests/Meds): ORDERS Category Date Time Status Brain Natriuretic Peptide Stat Lab 09/20/19 10:33 Ordered Levetiracetam (Keppra) Stat Lab 09/20/19 08:40 Received Thyroid Panel Stat Lab 09/20/19 10:33 Ordered Troponin I Q3H Lab 09/20/19 11:45 Ordered Troponin I Q3H Lab 09/20/19 14:45 Ordered CA echo doppler complete Stat Y 09/20/19 10:34 Ordered - Radiology Data #2 Image(s): Chest Image Reviewed: Yes I reviewed the patient's radiology image, Yes I have reviewed radiologist's interpretation PROCEDURE: XR CHEST 2V CLINICAL HISTORY: swelling, weakness COMPARISON: CXR CHEST(2 VIEWS-NOT PORTABLE) from 01/09/2013 CXR1VP XR chest portable from 02/21/2018 CXR1VP XR chest portable from 05/31/2018 [id number] XR ribs LT min 3V w CXR1V from 06/03/2018 FINDINGS: The cardiomediastinal silhouette and pulmonary vascularity are within normal limits. The lungs are clear without infiltrates, suspicious nodules, or pleural effusions. No acute bony abnormalities. IMPRESSION: No acute findings. Dictated by: Octavio Noguera MD 09/20/2019 09:58 Electronically signed by Ned Noguera
--- NOTE | 2019-09-20 08:44 | ECG_ITS ---
APPROVED REPORT Exam: Resting ECG HR:88 bpm ECG Measurements Heart Rate 88 AXES DC 158 P 58 QRSd 82 QRS 31 QT 374 T 47 QTc 452 <Conclusion> Normal sinus rhythm Normal ECG Electronically signed by : Nabil Lynch, 09/21/2019 17:17:49
[2019-09-20 08:57] LABS: Microscopic, Urine URINE MICROSCOPIC (MICROSCOPIC)
--- NOTE | 2019-09-20 08:59 | CT_ITS ---
PROCEDURE: CT HEAD/BRAIN WO CON CLINICAL INDICATION: confusion, falls Fall with injury and pain, swelling, confusion, disorientation, altered level of consciousness COMPARISON: HEADWO CT head/brain wo con from 02/21/[address] head/brain wo con from 05/31/2018 TECHNIQUE: Axial images obtained. All CT scans at the facility use one or more dose reduction, viz: automated exposure control, ma/kV adjustment per patient size (including targeted exams where dose is matched to indication, i.e. head), or iterative reconstruction technique. FINDINGS: No midline shift, mass effect, intracranial hemorrhage, hydrocephalus, or extra-axial fluid collection is evident. Low-density changes are present in the periventricular region bilaterally in the parietal lobes and may be due to ischemic gliotic change from microvascular disease. The calvarium has an unremarkable appearance. No mastoid effusion. No sinus air-fluid level. IMPRESSION: 1. No acute intracranial findings. 2. Periventricular low-density changes which may be due to ischemic gliotic change from small vessel disease. Dictated by: Octavio Noguera MD 09/20/2019 09:57 Electronically signed by Octavio Noguera MD in [place] 09/20/2019 09:57
[2019-09-20 09:01] LABS: Appearance,Urine CLEAR (Clear); Bilirubin,Urine Negative (Negative); Blood, Urine Negative (Negative); Color,Urine YELLOW (Yellow); Glucose,Urine (UA) Negative (Negative); Ketones,Urine Negative (Negative); Leukocyte Esterase,Urine Negative (Negative); Nitrate,Urine Negative (Negative); PH,Urine 5.5 (5.0-8.5); Protein,Urine Negative (Negative); Urobilinogen,Urine 0.2 EU/dl (0.2)
[2019-09-20 09:02] LABS: Basophils # 0.1 K/mm3 (0-0.2); Basophils % 1.6 % (0.1-2.0); Eosinophils # 0.1 K/mm3 (0.0-0.4); Eosinophils % 1.2 % (0.1-12.0); Hematocrit 35.1 % (42.0-52.0); Hemoglobin 11.3 g/dL (14.1-18.0); Lymphocytes # 1.6 K/mm3 (0.7-4.5); Lymphocytes % 18.5 % (10-50); Mean Corpuscular HGB Conc 32.3 g/dL (31.8-35.4); Mean Corpuscular Hemoglobin 33.4 pg (27.0-31.2); Mean Corpuscular Volume 103.5 fl (80-94); Mean Platelet Volume 11.2 fl (7.4-10.4); Monocytes # 0.6 K/mm3 (0.1-1.0); Monocytes % 6.9 % (1.7-9.3); Neutrophils # 6.4 K/mm3 (1.8-7.8); Neutrophils % 71.9 % (37.0-80.0); Platelet Count 117 K/mm3 (142-424); Red Blood Count 3.39 M/mm3 (4.60-6.20); Red Cell Distribution Width 14.6 % (11.5-17.5); White Blood Count 8.9 K/mm3 (4.8-10.8)
[2019-09-20 09:03] LABS: Chloride 108 mmol/L (98-107); Sodium 141 mmol/L (136-145)
[2019-09-20 09:05] LABS: Ammonia 96 umol/L (9-30); Blood Urea Nitrogen 51 mg/dl (9-20); Creatinine Clearance Estimated 23 mL/min (50-200); Estimated Glomerular Filt Rate 13 ml/min (>60); GFR (African American) 16 ML/MIN (>60)
[2019-09-20 09:06] LABS: Alanine Aminotransferase 21 U/L (12-78); Albumin Level 4.7 g/dl (3.5-5.0); Albumin/Globulin Ratio 1.1 (1.1-1.8); Alkaline Phosphatase 232 U/L (38-126); Bilirubin,Total 0.8 mg/dl (0.2-1.3); Calcium 9.6 mg/dl (8.4-10.2); Carbon Dioxide 18 mmol/L (22.0-30.0); Globulin 4.3 g/dL (1.3-3.2); Glucose 85 mg/dl (74-100)
[2019-09-20 09:11] LABS: Aspartate Amino Transferase 35 U/L (17-59)
[2019-09-20 09:13] LABS: Barbiturates Screen,Urine Negative ng/ml (<200)
[2019-09-20 09:14] LABS: Amphetamine/Metha Screen,Urine Negative ng/ml (<1000); Benzodiazepines Screen,Urine Negative ng/ml (<200)
[2019-09-20 09:15] LABS: Cannabinoid Screen,Urine Negative ng/ml (<50)
[2019-09-20 09:16] LABS: Cocaine Screen,Urine Negative ng/ml (<300); Methadone Screen,Urine Negative ng/ml (<300)
[2019-09-20 09:17] LABS: Opiate Screen,Urine Negative ng/ml (<300); Phencyclidine Screen,Urine Negative ng/ml (<25)
[2019-09-20 09:20] LABS: Troponin I < 0.01 ng/ml (0.00-0.034)
[2019-09-20 10:19] LABS: INR 1.11 (0.9-1.1); Prothrombin Time 11.5 seconds (9.4-11.8)
--- NOTE | 2019-09-20 10:24 | PC.NURSE ---
CALLING DR PANCHAL'S OFFICE AT THIS TIME
--- NOTE | 2019-09-20 10:26 | PC.NURSE ---
SPEAKING WITH DR PANCHAL
--- NOTE | 2019-09-20 10:34 | CA_ITS ---
APPROVED REPORT EXAM: Comprehensive 2D, Doppler, and color-flow Echocardiogram Bracelet Maker Novelty: Luna Pérez CRT Ht: 5 ft 8 in Wt: 210lbs BSA: 2.09 BP: 190/90 mmHg Indications: edema, cirrhosis, hep c, ckd, anemia 2D Dimensions LVOT 1.83 cm (M/F) 1.5-2.5 M-Mode Dimensions RVDd 1.80 cm (0.9-2.6) LVDd 5.15 cm (3.5-5.7) LVDs 3.74 cm (3.5-5.7) IVSd 1.38 cm (0.6-1.1) PWd 0.90 cm (0.6-1.1) EF (Teich) 52.90% FS 27.40% EDV (Teich) 126.60 mL ESV (Teich) 59.60 mL LV Diastology E/A Ratio 0.75 Mitral Valve MV A Velocity 102.00 (40-130 cm/s) Left Ventricle Left atrium is mildly enlarged, left ventricle is normal size, mild concentric left ventricular hypertrophy, visually estimated ejection fraction 55% with no regional wall motion abnormality, grade 1 diastolic dysfunction seen without tissue Doppler evidence of raise left atrial pressure. Right Ventricle Right atrium right ventricle mildly enlarged with normal contractility. Aortic Valve Aortic valve is grossly normal, there is no aortic stenosis or aortic insufficiency. Mitral Valve Mitral valve is grossly normal, there is mild mitral regurgitation. Tricuspid Valve Tricuspid valve is grossly normal, there is mild tricuspid regurgitation. Pulmonic Valve Pulmonic valve is poorly visualized. Great Vessels Aortic root is normal size. Pericardium No significant pericardial effusion noted. Conclusion 1. Mild mitral enlargement, normal left ventricular size, mild concentric left ventricular hypertrophy, visually estimated ejection fraction 55% with no regional wall motion abnormality, grade 1 diastolic dysfunction seen without tissue Doppler evidence of raise left atrial pressure. 2. Mildly enlarged right ventricle with normal contractility. 3. Mild mitral and tricuspid regurgitation. 4. No significant pericardial effusion noted. Electronically signed by : Maximilian Stallworth, 09/20/2019 19:55:48
[2019-09-20 10:56] LABS: NT Pro Brain Natriuretic Pep. 345 pg/mL (0-125)
[2019-09-20 11:16] LABS: Free Thyroxine Index 2.7 ug/dL (5.93-13.13); T4 (Thyroxine) 9.1 ug/dl (5.53-11.0); Triiodothryronine (T3) Uptake 30 % (23.5-40.5)
[2019-09-20 11:29] LABS: Thyroid Stimulating Hormone 0.59 uIU/mL (0.465-4.68)
--- NOTE | 2019-09-20 11:55 | P.CONPHA_ITS ---
[facility] Pharmacy VTE Monitoring - Patient Demographics Admission date: 09/20/19 Report Date: 09/20/19 Time: 11:55 Allergies/Adverse Reactions: Patient Allergies No Known Allergies Allergy (Verified 09/20/19 08:31) Height: 1.73 m Weight: 95.254 kg Patient Problems: Current Active Problems Anemia (Acute) Peripheral edema (Acute) Chronic kidney disease, stage V (Acute) Hepatic encephalopathy (Chronic) Chronic back pain (Chronic) Cirrhosis (Acute) - VTE Risk Labs: VTE Related Lab Results Hgb 11.3 g/dL (14.1-18.0) L 09/20/19 08:40 Hct 35.1 % (42.0-52.0) L 09/20/19 08:40 Plt Count 117 K/mm3 (142-424) L 09/20/19 08:40 PT 11.5 seconds (9.4-11.8) 09/20/19 10:10 INR 1.11 (0.9-1.1) H 09/20/19 10:10 BUN 51 mg/dl (9-20) H 09/20/19 08:40 Creatinine 4.70 mg/dl (0.66-1.25) H 09/20/19 08:40 Estimated Creat Clear 23 mL/min (50-200) 09/20/19 08:40 Clinical Trial Participant: No - Prophylaxis VTE Prophylaxis Ordered?: Yes Types of VTE Prophylaxis: TEDS Knee High
--- NOTE | 2019-09-20 12:41 | HMH.CNCARD ---
History of Present Illness Consult date: 09/20/19 Requesting physician: Nithin Roman Chief complaint: Edema Additional Medical History:: 1. Hepatic and renal insufficiency related to longstanding alcohol, hypertension and IV drug use. A. Hepatorenal syndrome with current creatinine of 4.7 and GFR of 13 B. Ammonia level 96 with INR of 1.11 on no anticoagulation C. History of hepatitis C infection, currently taking entecavir 2. Longstanding hypertension A. Echo, 01/2018, 1. Moderately enlarged left atrium, normal left ventricular size, mild concentric left ventricular hypertrophy, visually estimated ejection fraction 55% with no regional wall motion abnormality diastolic parameters are inconclusive. 2. Mild mitral and tricuspid regurgitation, calculated right ventricular systolic pressure 61 mmHg consistent with moderate pulmonary hypertension. 3. No significant pericardial effusion noted 3. History of alcohol abuse, discontinued at least 2018 per patient 4. History of drug use including IV use of heroin and cocaine, patient states last use was 2017 5. Tobacco use, 1.5 packs/day x 45 years History of present illness: Complains of swelling of both legs for about 12 days. States that he is also having problems with confusion, poor balance, has fallen a couple of times. Has not hit his head. Has not had a bowel movement in 10 days. Recently released from residential because of coronavirus. States that he got out 2 weeks ago. He was then admitted to [facility] the same day he got out of residential. He says that he has chronic renal failure his physicians have been considering dialysis. He also has cirrhosis. He says that he has been taking his medications as prescribed, except for lactulose which she just received by mail order yesterday, has not taken it since released from residential except while in [facility]. Denies chest pain, shortness of breath, cough, fever, vomiting. Has not seen his primary care physician since released from residential, states that he has trouble with transportation. His sister brought him here today. [facility] portal reviewed. Patient was admitted 09/08/2019 through 09/09/2019 with discharge diagnosis of hepatic encephalopathy. Presented with a few hours of vomiting, just hours after released from residential. Ammonia level was 118, 61 at discharge. Chronic anemia with hemoglobin of 8.5. Chronic kidney disease stage V with creatinine of 4.01 at that time. Baseline creatinine noted to be 4.30. Hypertension, started on nifedipine. Complained of back pain at that time as well. Noted to be chronic. The above per Dr. Reyes Patient sought evaluation today due to increasing lower extremity edema combined with confusion, poor balance and falling. He has known chronic kidney and liver disease dating back approximately 10 years felt to be due to longstanding alcohol and drug use. This did include IV drug use of cocaine and heroin. Patient denies any use of either or alcohol in the last year. He was incarcerated for almost 1 year for drug-related charges with recent release early this month due to the COVID pandemic. Patient denies any chest pain, pressure or tightness. He relates a cardiac catheterization approximately 25 years ago at which time he was told his arteries were clean. The patient tells me he has been taking his medication even during incarceration. He relates he was evaluated in [place] for arterial mapping and consideration of dialysis. Cardiology consulted for lower extremity edema. [facility] History Medical History: Reports:: Hepatitis, Hypertension Denies:: Cancer, Diabetes Mellitus Type 1, Diabetes Mellitus Type 2, MRSA *Have you ever received a pneumonia vaccine?: Yes *Have you received a flu vaccine this season?: No Other Medical History: Reports: Liver Disease, Sinus Problems Other Surgeries: Yes: Angiogram, Cardiac Catheterization, Colonoscopy, EGD, Other Amputation: No Fractures: No
--- NOTE | 2019-09-20 15:35 | PC.NURSE ---
Patient is alert and oriented. Lungs clear, bowel sounds active. Edema noted to BLE and abd. Abdomen is large and tender to palpation in mid right quadrant. He ambulates with assist x1/standby assist. He states he has been unsteady on his feet with falls over the last few days. Appetite has been ok. No complaints verbalized. will continue to monitor.
--- NOTE | 2019-09-20 21:41 | HMH.HP ---
*Admission Date: 09/20/19 *Chief complaint: sob *History of present illness: this wm who has known renal dis and liver dis - he has recent incarceration and admit at [facility] presents to ed with c/o bilateral lower leg swelling and back pain. pt states that he recently got out of shelter and he was admitted at [facility] for nausea/vomiting. pt states that he is not taking any of his medicines. pt states he is in kidney failure Planes of swelling of both legs for about 12 days. States that he is also having problems with confusion, poor balance, has fallen a couple of times. Has not hit his head. Has not had a bowel movement in 10 days. Recently released from shelter because of coronavirus. States that he got out 2 weeks ago. He was then admitted to [facility] the same day he got out of shelter. He says that he has chronic renal failure his physicians have been considering dialysis. He also has cirrhosis. He says that he has been taking his medications as prescribed, except for lactulose which she just received by mail order yesterday, has not taken it since released from shelter except while in [facility]. Denies chest pain, shortness of breath, cough, fever, vomiting. Has not seen his primary care physician since released from shelter, states that he has trouble with transportation. His sister brought him here today. mary was admitted 09/08/2019 through 09/09/2019 with discharge diagnosis of hepatic encephalopathy. Presented with a few hours of vomiting, just hours after released from shelter. Ammonia level was 118, 61 at discharge. Chronic anemia with hemoglobin of 8.5. Chronic kidney disease stage V with creatinine of 4.01 at that time. Baseline creatinine noted to be 4.30. Hypertension, started on nifedipine. Complained of back pain at that time as well. Noted to be chronic. pt with admitted with acute excerbation of liver dis- [facility] History I have reviewed the patient's past medical history: Yes Medical History: Reports:: Hepatitis, Hypertension Denies:: Cancer, Diabetes Mellitus Type 1, Diabetes Mellitus Type 2, MRSA *Have you ever received a pneumonia vaccine?: Yes *Have you received a flu vaccine this season?: No Other Medical History: Reports: Liver Disease, Sinus Problems Other Surgeries: Yes: Angiogram, Cardiac Catheterization, Colonoscopy, EGD, Other Amputation: No Fractures: No - *Social History Educational Level: Completed GED/General Educational Development Smoking Status: Current every day smoker Tobacco Type: cigarettes # Packs/Day (cigarettes): 2 #Yrs smoked (if former smoker): 35 Alcohol Intake: former Alcohol Intake Frequency:: other Substance Use Type: crack/cocaine, heroin *Occupational Status:: disabled Housing: other Household Members: none *Travel in the last 8 weeks: Inside the [place] Family Hx:: Heart Attack, Stroke, Diabetes, Hyperlipidemia, Cancer Review of Systems - Review of Systems Review of systems:: pertinent systems reviewed and negative unless documented below - Constitutional Reports weakness, Denies fever(s) - Eyes Denies change in vision - ENT Denies sore throat - *Cardiovascular Denies chest pain, Denies shortness of breath - *Respiratory Denies cough - *Gastrointestinal Reports nausea, Denies abdominal pain, Denies vomiting - *Genitourinary Denies blood in urine - *Musculoskeletal Denies joint pain - Integumentary/Breasts Denies rash - *Neurologic Reports confusion, Reports unsteadiness, Reports frequent falls - Psychiatric Reports change in appetite, Denies anxiety Meds Home Medications Medication Instructions Recorded Confirmed Type Entecavir 1 mg PO DAILY 05/31/18 09/20/19 History Lactulose [Chronulac 20gm/30mL UDC] 30 gm PO BID 05/31/18 09/20/19 History levETIRAcetam [Levetiracetam] 750 mg PO BID 05/31/18 09/20/19 History furosemide 20 mg tablet 40 mg PO DAILY 60 Days #120 tab 06/25/18 09/20/19 Rx spirono
--- NOTE | 2019-09-21 03:38 | PC.NURSE ---
During 0300 rounds this RN noticed strong smell of cigarette smoke coming from pts bathroom. This asked pt if he had been smoking and pts response was no . Explained to pt that this was a non-smoking facility and the importance of not smoking with oxygen in [place]. quilting supervisor made aware of situation and pt's belongings placed in pt room closet in a belongings bag. paged for nicotine patch at 0338. Will pass along to oncoming RN.
[2019-09-21 04:00] VITALS: BP 137/57; PULSE 67; RESP 18; TEMP 37.1; O2SAT 97
[2019-09-21 05:00] VITALS: BMI 29.2
[2019-09-21 06:48] LABS: Ammonia 83 umol/L (9-30)
[2019-09-21 07:59] VITALS: BP 128/60; PULSE 65; RESP 16; TEMP 36.9; O2SAT 99
[2019-09-21 08:32] LABS: Basophils # 0.1 K/mm3 (0-0.2); Chloride 108 mmol/L (98-107); Eosinophils # 0.1 K/mm3 (0.0-0.4); Hematocrit 30.4 % (42.0-52.0); Potassium 4.2 mmoL/L (3.5-5.1); Red Blood Count 3.03 M/mm3 (4.60-6.20); Red Cell Distribution Width 14.5 % (11.5-17.5); Sodium 140 mmol/L (136-145)
[2019-09-21 08:35] LABS: Anion Gap 16.2 mEq/L (5-15); Blood Urea Nitrogen 54 mg/dl (9-20); Carbon Dioxide 20 mmol/L (22.0-30.0); Creatinine Clearance Estimated 20 mL/min (50-200); Estimated Glomerular Filt Rate 12 ml/min (>60); GFR (African American) 15 ML/MIN (>60); Glucose 72 mg/dl (74-100)
--- NOTE | 2019-09-21 08:35 | HMH.DCSUM ---
General - General Admission date:: 09/20/19 Discharge date: 09/21/19 HPI HPI: this wm who has known renal dis and liver dis - he has recent incarceration and admit at [facility] presents to ed with c/o bilateral lower leg swelling and back pain. pt states that he recently got out of detention and he was admitted at [facility] for nausea/vomiting. pt states that he is not taking any of his medicines. pt states he is in kidney failure Planes of swelling of both legs for about 12 days. States that he is also having problems with confusion, poor balance, has fallen a couple of times. Has not hit his head. Has not had a bowel movement in 10 days. Recently released from detention because of coronavirus. States that he got out 2 weeks ago. He was then admitted to [facility] the same day he got out of detention. He says that he has chronic renal failure his physicians have been considering dialysis. He also has cirrhosis. He says that he has been taking his medications as prescribed, except for lactulose which she just received by mail order yesterday, has not taken it since released from detention except while in [facility]. Denies chest pain, shortness of breath, cough, fever, vomiting. Has not seen his primary care physician since released from detention, states that he has trouble with transportation. His sister brought him here today. mary was admitted 09/08/2019 through 09/09/2019 with discharge diagnosis of hepatic encephalopathy. Presented with a few hours of vomiting, just hours after released from detention. Ammonia level was 118, 61 at discharge. Chronic anemia with hemoglobin of 8.5. Chronic kidney disease stage V with creatinine of 4.01 at that time. Baseline creatinine noted to be 4.30. Hypertension, started on nifedipine. Complained of back pain at that time as well. Noted to be chronic. pt with admitted with acute excerbation of liver dis- Hospital Course Hospital Course: chest x ray:FINDINGS: The cardiomediastinal silhouette and pulmonary vascularity are within normal limits. The lungs are clear without infiltrates, suspicious nodules, or pleural effusions. No acute bony abnormalities. IMPRESSION: No acute findings. ct head: FINDINGS: No midline shift, mass effect, intracranial hemorrhage, hydrocephalus, or extra-axial fluid collection is evident. Low-density changes are present in the periventricular region bilaterally in the parietal lobes and may be due to ischemic gliotic change from microvascular disease. The calvarium has an unremarkable appearance. No mastoid effusion. No sinus air-fluid level. IMPRESSION: 1. No acute intracranial findings. 2. Periventricular low-density changes which may be due to ischemic gliotic change from small vessel disease. echo: Conclusion 1. Mild mitral enlargement, normal left ventricular size, mild concentric left ventricular hypertrophy, visually estimated ejection fraction 55% with no regional wall motion abnormality, grade 1 diastolic dysfunction seen without tissue Doppler evidence of raise left atrial pressure. 2. Mildly enlarged right ventricle with normal contractility. 3. Mild mitral and tricuspid regurgitation. 4. No significant pericardial effusion noted. cardiology consult-recommends: Assessment and Plan for all problems:: 1. Hepatorenal syndrome. Recommend combination of torsemide 100 mg daily and Aldactone 100 mg daily. Will discontinue nifedipine due to exacerbation of peripheral edema and switch back to bisoprolol which the patient reportedly has been taking. 2. History of hypertension with elevated pressures at this time. This should improve with diuresis. Echocardiogram has been performed (preliminary report shows preserved ejection fraction with no significant valve disease or evidence of pericardial effusion). 3. Tobacco use, cessation recommended 4. Chronic kidney disease stage IV/V, urged pat
[2019-09-21 08:38] LABS: Basophils % 0.9 % (0.1-2.0); Eosinophils % 1.5 % (0.1-12.0); Lymphocytes # 1.9 K/mm3 (0.7-4.5); Mean Corpuscular HGB Conc 33.1 g/dL (31.8-35.4); Mean Corpuscular Hemoglobin 33.1 pg (27.0-31.2); Mean Corpuscular Volume 100.2 fl (80-94); Mean Platelet Volume 11.7 fl (7.4-10.4); Monocytes # 0.9 K/mm3 (0.1-1.0); Monocytes % 11.1 % (1.7-9.3); Neutrophils # 4.9 K/mm3 (1.8-7.8); Neutrophils % 62.5 % (37.0-80.0); Platelet Count 113 K/mm3 (142-424); White Blood Count 7.9 K/mm3 (4.8-10.8)
[2019-09-21 08:44] LABS: Calcium 8.7 mg/dl (8.4-10.2)
--- NOTE | 2019-09-21 09:21 | HMH.PHAINT ---
DISCHARGE COUNSELING COMPLETE. SPOKE WITH PATIENT REGARDING THE INCREASE OF BISOPROLOL TO TWICE DAILY, SWITCH OF FUROSEMIDE TO TORSEMIDE, DECREASE OF LACTULOSE TO 20 GRAMS DAILY, ADDITION OF NICOTINE PATCHES AND THE DISCONTINUATION OF: TRAMADOL, TIZANIDINE, GABAPENTIN, AND MIRTAZAPINE. PATIENT ENDORSED NO QUESTIONS AT THIS TIME.
--- NOTE | 2019-09-21 09:43 | HMH.PNCARD ---
Subjective Date: 09/21/19 Time: 09:35 Principal diagnosis: renal failure Interval history: This is a 59-year-old gentleman with known hepatic and renal insufficiency. He also has longstanding alcohol and IV drug use. He also has known hypertension. The patient was admitted with swelling in the bilateral lower extremities for approximately 12 days prior to admission. He was also having issues with confusion, poor balance and had fallen a few times. The patient has recently been released from nursing home secondary to coronavirus. He got out of [facility] about 2 weeks ago and was admitted to [facility] for the chronic renal failure and he was being worked up for dialysis at that time. The patient was readmitted here for hepatic encephalopathy. The patient states that his edema continued to progress and that is why he came to the emergency department here. He is currently being treated for his hepatic and renal insufficiency. He reports that he has not had any alcohol use in the last year. He currently denies any chest pain or pressure. No shortness of breath. No fever, chills, nausea, vomiting, diarrhea, PND or orthopnea. He states that his lower extremity edema has improved but is still slightly present at times. His diuretics have been changed to torsemide and Aldactone which he is tolerating well. Exam Vital signs and Labs for Last 24 Hours: Temp Pulse Resp BP Pulse Ox 98.4 F 65 16 128/60 99 09/21/19 07:59 09/21/19 07:59 09/21/19 07:59 09/21/19 07:59 09/21/19 07:59 Laboratory Results - last 24 hr 09/20/19 10:10: PT 11.5, INR 1.11 H 09/20/19 10:15: NT-Pro-B Natriuret Pep 345 H 09/20/19 10:15: TSH 0.59, Free T4 Index 2.7 L, Thyroxine (T4) 9.1, T3 Uptake 30 09/21/19 05:45: Ammonia 83 H 09/21/19 05:45: WBC 7.9, RBC 3.03 L, Hgb 10.0 L D, Hct 30.4 L, MCV 100.2 H, MCH 33.1 H, MCHC 33.1, RDW 14.5, Plt Count 113 L, MPV 11.7 H, Neut % (Auto) 62.5, Lymph % (Auto) 24.0, Wake % (Auto) 11.1 H, Eos % (Auto) 1.5, Baso % (Auto) 0.9, Neut # (Auto) 4.9, Lymph # (Auto) 1.9, Wake # (Auto) 0.9, Eos # (Auto) 0.1, Baso # (Auto) 0.1 09/21/19 05:45: Sodium 140, Potassium 4.2, Chloride 108 H, Carbon Dioxide 20 L, Anion Gap 16.2 H, BUN 54 H, Creatinine 4.90 H, Estimated Creat Clear 20, Estimated GFR 12 L*, Est GFR ( Amer) 15 L*, Glucose 72 L, Calcium 8.7 I & O for Last 24 hours: Intake & Output 09/18/19 09/19/19 09/20/19 09/21/19 23:59 23:59 23:59 23:59 Intake Total 1080 / 1320 720 / 720 Balance 1080 / 1320 720 / 720 Weight 196 lb 4 oz 192 lb 9 oz - Constitutional no acute distress, average body habitus - *Routine HEENT Exam Head: Present: normocephalic, atraumatic Eye: Present: EOMI, PERRL ENT: Present: mucous membranes moist - *Routine Neck Exam Present: supple, full ROM, normal carotid upstroke. Absent: JVD, carotid bruit, lymphadenopathy - *Routine Respiratory Exam Present: CTA bilaterally - *Routine Cardiovascular Exam Present: RRR, Normal S1, Normal S2. Absent: murmur - *Routine Abdominal Exam Present: soft, normoactive bowel sounds. Absent: tenderness, distended, rebound - *Routine Extremities Exam Present: full ROM, pulses intact. Absent: cyanosis, clubbing, edema - *Routine Skin Exam Present: intact, warm. Absent: erythema, rash - *Routine Neurological Exam Present: alert, oriented X3, CN II-XII intact. Absent: sensory deficit, motor deficit Progress Note: A&P (1) Hypertension Status: Chronic Current Visit: No (2) Chronic kidney disease, stage V Status: Acute Current Visit: Yes (3) Cirrhosis Status: Acute Current Visit: Yes (4) Anemia Status: Acute Current Visit: Yes (5) Peripheral edema Status: Acute Current Visit: Yes (6) Chronic back pain Status: Chronic Current Visit: Yes (7) Hepatic encephalopathy Status: Chronic Current Visit: Yes (8) History of intravenous drug abuse Status: Acute Current Visit: No (9) Tobacco
--- NOTE | 2019-09-21 09:57 | SW/DCPLANNER ---
Addendum entered by Fabiana Samson 09/21/19 10:53: I have also presented this patient with detailed direction regarding [employer]. Original Note: I have spoke with this patient and his sister regarding discharge plans. Sister did call me and informed me that this patient had recently been released from alf and did not have anywhere to go. Patient has been sleeping on the porch of the [facility]. I did inform patients sisters of various different shelters in [place] for this patient. Sister has mentioned Hospice and Alexa from Hospice has contacted me this morning. I have informed both his sister and Alexa that MD did not order Hospice services at this time. I explained to sister that it is highly important for this patient to attend all MD appointments and be complient with all order medications. Sister stated that she will be transporting this patient to a place for him to reside. I will further discuss this with patient. Patient will discharge home today.
[2019-09-23 06:18] LABS: Levetiracetam (Keppra) <1.0 ug/mL (10.0-40.0)
== END 2019-09-21 12:10 | disposition home or self-care (01) | DRG 432 ==
LOC: ER 10:38 → 2ND 10:46
PROVIDERS: Nurse Practitioner Family; Admitting Provider Emergency Medicine; Emergency Provider Emergency Medicine; PCP Physician Assistant; Visit Provider Emergency Medicine
DX: K70.40 Alcoholic hepatic failure without coma (principal); K76.7 Hepatorenal syndrome; I12.0 Hypertensive chronic kidney disease with stage 5 chronic kidney disease or end stage renal disease; N18.5 Chronic kidney disease, stage 5; D64.9 Anemia, unspecified; K70.30 Alcoholic cirrhosis of liver without ascites; F10.21 Alcohol dependence, in remission; F19.11 Other psychoactive substance abuse, in remission; Z72.0 Tobacco use; Z91.81 History of falling
CPT/HCPCS: 36415; 70450; 71046; 80048; 80053; 80177; 80305; 81001; 82140; 83880; 84436; 84443; 84479; 84484; 85025; 85610; 93005; 93306; 99284

== ENCOUNTER → 2020-01-23 09:41 | Outpatient (CLI) | payer MEDICARE, MEDICAID, SELFPAY ==
[2020-01-23 10:09] LABS: Basophils % 0.2 % (0.1-2.0); Eosinophils # 0.1 K/mm3 (0.0-0.4); Eosinophils % 1.3 % (0.1-12.0); Hematocrit 33.6 % (42.0-52.0); Lymphocytes # 0.9 K/mm3 (0.7-4.5); Lymphocytes % 22.5 % (10-50); Mean Corpuscular HGB Conc 32.7 g/dL (31.8-35.4); Mean Corpuscular Hemoglobin 31.3 pg (27.0-31.2); Mean Corpuscular Volume 95.6 fl (80-94); Mean Platelet Volume 11.9 fl (7.4-10.4); Monocytes # 0.2 K/mm3 (0.1-1.0); Monocytes % 4.3 % (1.7-9.3); Neutrophils % 71.6 % (37.0-80.0); Platelet Count 79 K/mm3 (142-424); Red Blood Count 3.52 M/mm3 (4.60-6.20); Red Cell Distribution Width 15.3 % (11.5-17.5); White Blood Count 4.1 K/mm3 (4.8-10.8)
[2020-01-23 10:16] LABS: Ammonia 101 umol/L (9-30)
[2020-01-23 10:50] LABS: Alanine Aminotransferase 13 U/L (12-78); Albumin Level 3.9 g/dl (3.5-5.0); Albumin/Globulin Ratio 1.2 (1.1-1.8); Alkaline Phosphatase 237 U/L (38-126); Anion Gap 13.5 mEq/L (5-15); Aspartate Amino Transferase 21 U/L (17-59); Bilirubin,Total 0.4 mg/dl (0.2-1.3); Blood Urea Nitrogen 45 mg/dl (9-20); Calcium 9.1 mg/dl (8.4-10.2); Carbon Dioxide 24 mmol/L (22.0-30.0); Chloride 110 mmol/L (98-107); Estimated Glomerular Filt Rate 21 ml/min (>60); GFR (African American) 25 ML/MIN (>60); Globulin 3.2 g/dL (1.3-3.2); Glucose 142 mg/dl (74-100); Potassium 4.5 mmoL/L (3.5-5.1); Sodium 143 mmol/L (136-145); Total Protein,Serum 7.1 g/dl (6.3-8.2)
== END ==
PROVIDERS: Visit Provider Family Medicine
DX: N28.9 Disorder of kidney and ureter, unspecified (principal); K57.92 Diverticulitis of intestine, part unspecified, without perforation or abscess without bleeding; K75.9 Inflammatory liver disease, unspecified
CPT/HCPCS: 36415; 80053; 82140; 85025

== ENCOUNTER → 2020-02-09 18:49 | Outpatient (CLI) | payer MEDICARE, MEDICAID, SELFPAY ==
[2020-02-09 19:44] LABS: Basophils % 0.2 % (0.1-2.0); Eosinophils # 0.1 K/mm3 (0.0-0.4); Eosinophils % 1.6 % (0.1-12.0); Hematocrit 26.3 % (42.0-52.0); Hemoglobin 8.8 g/dL (14.1-18.0); Lymphocytes # 0.9 K/mm3 (0.7-4.5); Lymphocytes % 24.1 % (10-50); Mean Corpuscular HGB Conc 33.5 g/dL (31.8-35.4); Mean Corpuscular Hemoglobin 31.3 pg (27.0-31.2); Mean Corpuscular Volume 93.2 fl (80-94); Mean Platelet Volume 10.7 fl (7.4-10.4); Monocytes # 0.4 K/mm3 (0.1-1.0); Monocytes % 11.4 % (1.7-9.3); Neutrophils # 2.4 K/mm3 (1.8-7.8); Neutrophils % 62.7 % (37.0-80.0); Platelet Count 91 K/mm3 (142-424); Red Blood Count 2.83 M/mm3 (4.60-6.20); Red Cell Distribution Width 16.4 % (11.5-17.5); White Blood Count 3.9 K/mm3 (4.8-10.8)
[2020-02-09 19:57] LABS: Alanine Aminotransferase 13 U/L (12-78); Albumin Level 3.3 g/dl (3.5-5.0); Albumin/Globulin Ratio 1.1 (1.1-1.8); Alkaline Phosphatase 198 U/L (38-126); Anion Gap 11.6 mEq/L (5-15); Aspartate Amino Transferase 28 U/L (17-59); Bilirubin,Total 0.7 mg/dl (0.2-1.3); Blood Urea Nitrogen 43 mg/dl (9-20); Calcium 8.2 mg/dl (8.4-10.2); Carbon Dioxide 22 mmol/L (22.0-30.0); Chloride 108 mmol/L (98-107); Estimated Glomerular Filt Rate 25 ml/min (>60); GFR (African American) 31 ML/MIN (>60); Globulin 2.9 g/dL (1.3-3.2); Glucose 132 mg/dl (74-100); Potassium 3.6 mmoL/L (3.5-5.1); Sodium 138 mmol/L (136-145); Total Protein,Serum 6.2 g/dl (6.3-8.2)
== END ==
PROVIDERS: Visit Provider Family Medicine
DX: N28.9 Disorder of kidney and ureter, unspecified (principal); R94.4 Abnormal results of kidney function studies; K57.92 Diverticulitis of intestine, part unspecified, without perforation or abscess without bleeding
CPT/HCPCS: 80053; 85025; 87086

== ENCOUNTER 2022-03-24 13:34 | Inpatient (IN) | payer MEDICARE, MEDICAID, SELFPAY ==
[2022-03-24] VITALS (7 sets, daily range): BP systolic 128–164; BP diastolic 62–69; PULSE 81–93; RESP 16–22; TEMP 36.6–37; O2SAT 92–98; BMI 38.0; BMI 33.8
--- NOTE | 2022-03-24 13:48 | XR_ITS ---
FINAL REPORT TECHNIQUE: Single view chest CLINICAL HISTORY: SOA, abd swelling FINDINGS: A single view of the chest was obtained. The heart is enlarged. There is mild pulmonary vascular congestion. Mild bibasilar atelectasis or scarring is seen. The lungs are otherwise clear. There is no pneumothorax. Osseous structures are unremarkable. IMPRESSION: Mild pulmonary vascular congestion with mild bibasilar atelectasis or scarring. Reviewed, Interpreted and Dictated by Abdiel Ng III, MD Transcribed by Pallavi Cadena Authenticated and [facility]
--- NOTE | 2022-03-24 13:56 | ECG_ITS ---
APPROVED REPORT Exam: Resting ECG HR:81 bpm ECG Measurements Heart Rate 81 AXES WA 145 P -13 QRSd 89 QRS 43 QT 367 T 46 QTc 404 Conclusion SINUS RHYTHM NORMAL ECG UNCONFIRMED REPORT Electronically signed by : Nabil Lynch MD 03/24/2022 16:35:55
--- NOTE | 2022-03-24 14:01 | HMH.EDSOB ---
Discharge Plan Disposition Patient Disposition: Admitted As Inpatient Chief Complaint: Shortness of Breath/Dyspnea Prescriptions Prescriptions: No Action furosemide [Lasix] 40 mg tablet 40 mg PO BID Qty: 60 5RF oxycodone 5 mg tablet 5 mg PO BID PRN (Reason: pain) Qty: 14 0RF lactulose 10 gram/15 mL solution See Rx Instructions .ROUTE .COMPLEX Qty: 946 3RF Dose Instruction: TAKE 1 TABLESPOONFUL (15ML) BY MOUTH 2 TIMES A DAY Rx Instructions: TAKE 1 TABLESPOONFUL (15ML) BY MOUTH 2 TIMES A DAY tizanidine 4 mg tablet See Rx Instructions .ROUTE .COMPLEX Qty: 90 0RF Dose Instruction: TAKE ONE TABLET BY MOUTH 2 TIMES A DAY NEEDED FOR MUSCLE SPASTICITY Rx Instructions: TAKE ONE TABLET BY MOUTH 2 TIMES A DAY NEEDED FOR MUSCLE SPASTICITY entecavir 1 mg tablet See Rx Instructions .ROUTE .COMPLEX Qty: 30 3RF Dose Instruction: TAKE ONE TABLET BY MOUTH ONCE A DAY FOR HEPATITIS B Rx Instructions: TAKE ONE TABLET BY MOUTH ONCE A DAY FOR HEPATITIS B albuterol sulfate [ProAir HFA] 90 mcg/actuation HFA aerosol inhaler See Rx Instructions .ROUTE .COMPLEX Qty: 8.5 3RF Dose Instruction: INHALE 2 PUFFS BY MOUTH EVERY 6 HOURS NEEDED FOR SHORTNESS OF BREATH OR WHEEZING Rx Instructions: INHALE 2 PUFFS BY MOUTH EVERY 6 HOURS NEEDED FOR SHORTNESS OF BREATH OR WHEEZING omeprazole 40 mg capsule,delayed release(DR/EC) See Rx Instructions .ROUTE .COMPLEX Qty: 30 3RF Dose Instruction: TAKE ONE CAPSULE BY MOUTH ONCE A DAY FOR GERD Rx Instructions: TAKE ONE CAPSULE BY MOUTH ONCE A DAY FOR GERD Xifaxan 550 mg tablet See Rx Instructions .ROUTE .COMPLEX Qty: 60 3RF Dose Instruction: TAKE ONE TABLET BY MOUTH 2 TIMES A DAY Rx Instructions: TAKE ONE TABLET BY MOUTH 2 TIMES A DAY spironolactone 25 mg tablet See Rx Instructions .ROUTE .COMPLEX Qty: 30 3RF Dose Instruction: TAKE ONE TABLET BY MOUTH ONCE A DAY Rx Instructions: TAKE ONE TABLET BY MOUTH ONCE A DAY Discharge ED Provider: Nithin Roman Resp/SOB HPI General Chief Complaint: Shortness of Breath/Dyspnea Stated Complaint: SOA build of fluid Time Seen by Provider: 03/24/22 14:02 Mode of Arrival: Ambulatory Source of Information: Patient and Medical Record Limitations: No Limitations Description of Symptoms (Recalled from ER Triage Doc. by RN): Pt c/o increase in SOA x2 days, along with abd swelling. Reports hx of COPD History of Present Illness pt with progressive sob over the last 2 days w/o chest pain worse with exertion - does have tob use - has hx of cirrhosis and renal insuff - no bleeding reported MD Complaint: shortness of breath Onset (ago): day(s) Severity: moderate Known history of: COPD and other (cirrhosis) Related Data Home oxygen amount: none Previous Rx's Medication Instructions Recorded furosemide 40 mg tablet (Lasix) 40 mg PO BID #60 tabs 09/20/21 oxycodone 5 mg tablet 5 mg PO BID PRN pain #14 tabs 09/20/21 lactulose 10 gram/15 mL oral See Rx Instructions .Route 12/05/21 solution .COMPLEX #946 mL albuterol sulfate 90 mcg/actuation See Rx Instructions .Route 03/03/22 aerosol inhaler (ProAir HFA) .COMPLEX #8.5 grams entecavir 1 mg tablet See Rx Instructions .Route 03/03/22 .COMPLEX #30 tabs omeprazole 40 mg capsule,delayed See Rx Instructions .Route 03/03/22 release .COMPLEX #30 caps rifaximin 550 mg tablet (Xifaxan) See Rx Instructions .Route 03/03/22 .COMPLEX #60 tabs spironolactone 25 mg tablet See Rx Instructions .Route 03/03/22 .COMPLEX #30 tabs tizanidine 4 mg tablet See Rx Instructions .Route 03/03/22 .COMPLEX #90 tabs Allergies Allergy/AdvReac Type Severity Reaction Status Date / Time No Known Allergies Allergy Verified 10/01/20 11:37 [facility] Medical History (Updated 09/23/21 @ 12:42 by Aldo Cerda MD) Chest pain Cirrhosis Dyspnea Family history of ischemic heart disease History of cocaine
--- NOTE | 2022-03-24 14:19 | CT_ITS ---
FINAL REPORT TECHNIQUE: Axial images were obtained through the abdomen and pelvis by computed tomography. Contrast was unable to be given due to patient's GFR. This study was performed with technique to keep radiation doses as low as reasonably achievable, (ALARA). Individualized dose reduction techniques using automated exposure control or adjustment of the MA and/or KV according to the patient's size were employed. CLINICAL HISTORY: ABD swelling, SOA, Cirrhosis FINDINGS: Abdomen: The lung bases demonstrate mild bibasilar atelectasis. The liver has a lobular contour consistent with cirrhosis. Portal vein is enlarged measuring 23 mm. The spleen is enlarged at 16 cm. There are gallstones present. The adrenals are normal. The pancreas is unremarkable. The kidneys are normal. There are moderate vascular calcifications. The aorta is normal in caliber. There is no free fluid or adenopathy. Pelvis: The appendix is not identified. There are no secondary findings of appendicitis. There is a small right inguinal hernia containing fat. The urinary bladder is unremarkable. There is no free fluid or adenopathy. IMPRESSION: Cirrhosis with enlarged portal vein and enlarged spleen. Gallstones. Reviewed, Interpreted and Dictated by Abdiel Ng III, MD Transcribed by Pallavi Cadena Authenticated and [facility]
--- NOTE | 2022-03-24 14:20 | PC.NURSE ---
Pt ambulating to bathroom at this time.
[2022-03-24 14:41] LABS: Alanine Aminotransferase 15 U/L (12-78); Albumin/Globulin Ratio 1.3 (1.1-1.8); Alkaline Phosphatase 212 U/L (38-126); Anion Gap 21.4 mEq/L (5-15); Aspartate Amino Transferase 21 U/L (17-59); Bilirubin,Total 0.6 mg/dl (0.2-1.3); Blood Urea Nitrogen 40 mg/dl (9-20); Calcium 8.4 mg/dl (8.4-10.2); Carbon Dioxide 18 mmol/L (22.0-30.0); Chloride 107 mmol/L (98-107); Creatinine Clearance Estimated 36 mL/min (50-200); Estimated Glomerular Filt Rate 18 ml/min (>60); GFR (African American) 22 ML/MIN (>60); Globulin 3.1 g/dL (1.3-3.2); Glucose 129 mg/dl (74-100); Potassium 5.4 mmoL/L (3.5-5.1); Sodium 141 mmol/L (136-145); Total Protein,Serum 7.1 g/dl (6.3-8.2)
[2022-03-24 14:54] LABS: NT Pro Brain Natriuretic Pep. 3360 pg/mL (0-125); Troponin I 0.02 ng/ml (0.00-0.034)
[2022-03-24 14:58] LABS: INR 1.01 (0.9-1.1); Prothrombin Time 10.9 seconds (10.1-12.5)
[2022-03-24 14:59] LABS: Basophils % 0.2 % (0.1-2.0); Eosinophils # 0.1 K/mm3 (0.0-0.4); Eosinophils % 0.6 % (0.1-12.0); Lymphocytes # 0.9 K/mm3 (0.7-4.5); Lymphocytes % 9.9 % (10-50); Mean Corpuscular HGB Conc 24.5 g/dL (31.8-35.4); Mean Corpuscular Hemoglobin 20.2 pg (27.0-31.2); Mean Corpuscular Volume 82.2 fl (80-94); Mean Platelet Volume 9.9 fl (7.4-10.4); Monocytes # 0.6 K/mm3 (0.1-1.0); Monocytes % 6.2 % (1.7-9.3); Neutrophils # 7.5 K/mm3 (1.8-7.8); Neutrophils % 83.1 % (37.0-80.0); Platelet Count 129 K/mm3 (142-424); Red Blood Count 2.34 M/mm3 (4.60-6.20); Red Cell Distribution Width 18.8 % (11.5-17.5)
[2022-03-24 15:05] LABS: Hematocrit 19.2 % (42.0-52.0)
[2022-03-24 15:09] LABS: Hemoglobin 5.2 g/dL (14.1-18.0)
[2022-03-24 15:17] LABS: Lactic Acid 1.5 mmol/L (0.7-2.1)
[2022-03-24 15:17] LABS: Ammonia 21 umol/L (9-30)
[2022-03-24 15:57] LABS: Microscopic, Urine URINE MICROSCOPIC (MICROSCOPIC)
[2022-03-24 16:03] LABS: Appearance,Urine CLEAR (Clear); Bilirubin,Urine Negative (Negative); Blood, Urine Negative (Negative); Color,Urine YELLOW (Yellow); Glucose,Urine (UA) Negative (Negative); Ketones,Urine Negative (Negative); Leukocyte Esterase,Urine TRACE (Negative); Nitrate,Urine Negative (Negative); Protein,Urine Negative (Negative); Specific Gravity, Urine 1.015 (1.005-1.030); Urobilinogen,Urine 0.2 EU/dl (0.2)
[2022-03-24 16:32] LABS: Squamous Epithelial Cell,Urine Occasional #/hpf (0-5); WBC,Urine Occasional #/hpf (0-3)
--- NOTE | 2022-03-24 16:43 | PC.NURSE ---
Dr. Daniel at bedside
--- NOTE | 2022-03-24 16:57 | EXP.HP ---
History of Present Illness *Admission Date: 03/24/22 *Reason for visit:: weakness, fatigue *History of present illness: Mr. Lemos is a 61-year-old gentleman with known history of cirrhosis, anemia, chronic kidney disease. He presented to the ER today due to progressive weakness over the past 1 to 2 weeks. States just walking across the house is like doing a full day's work. Gets winded easily. Has felt progressively worse over the past few months but most acutely the past week. Denies chest pain, cough, nausea, vomiting, diarrhea. Has regular bowel movements daily secondary to lactulose and rifaximin. Denies any confusion. No history of melenic stools or hematemesis per his report. On initial work-up found to be profoundly anemic with hemoglobin of 5.2. Patient remains alert and oriented and ambulates under his own power. Creatinine elevated at 3.5 (not significantly above his baseline). Medicine was consulted for admission, transfusion, and further monitoring. [facility] Medical History Chest pain Cirrhosis Dyspnea Family history of ischemic heart disease History of cocaine abuse History of intravenous drug abuse Hypertension Syncope Family History Hypertension Social History Smoking Status: Current every day smoker tobacco type: cigarettes packs per day: 2 second hand exposure: Yes alcohol intake: former substance use type: former substance user, crack/cocaine and heroin current occupational status: disabled Travel in the last 8 weeks: None household members: none housing: other current occupational exposures/hazards: No caffeine: Yes Review of Systems Review of Systems Review of systems (narrative): 14 point review of systems performed, pertinent positives and negatives as per HPI Meds Home Medications and Allergies Home Medications Medication Instructions Recorded Confirmed Type furosemide 40 mg tablet (Lasix) 40 mg PO BID #60 tabs 09/20/21 03/24/22 Rx oxycodone 5 mg tablet 5 mg PO BID PRN pain #14 tabs 09/20/21 03/24/22 Rx lactulose 10 gram/15 mL oral See Rx Instructions .Route 12/05/21 03/24/22 Rx solution .COMPLEX #946 mL albuterol sulfate 90 mcg/actuation See Rx Instructions .Route 03/03/22 03/24/22 Rx aerosol inhaler (ProAir HFA) .COMPLEX #8.5 grams entecavir 1 mg tablet See Rx Instructions .Route 03/03/22 03/24/22 Rx .COMPLEX #30 tabs omeprazole 40 mg capsule,delayed See Rx Instructions .Route 03/03/22 03/24/22 Rx release .COMPLEX #30 caps rifaximin 550 mg tablet (Xifaxan) See Rx Instructions .Route 03/03/22 03/24/22 Rx .COMPLEX #60 tabs spironolactone 25 mg tablet See Rx Instructions .Route 03/03/22 03/24/22 Rx .COMPLEX #30 tabs tizanidine 4 mg tablet See Rx Instructions .Route 03/03/22 03/24/22 Rx .COMPLEX #90 tabs New Prescriptions to Start Prescriptions: Allergies Allergy/AdvReac Type Severity Reaction Status Date / Time No Known Allergies Allergy Verified 10/01/20 11:37 Exam Data for Last 24 hours Vital signs and Labs for Last 24 Hours: Temp Pulse Resp BP Pulse Ox 98.6 F 87 19 128/64 96 03/24/22 13:44 03/24/22 13:44 03/24/22 13:44 03/24/22 13:44 03/24/22 13:44 Laboratory Results - last 24 hr 03/24/22 14:13: WBC 9.0, RBC 2.34 L, Hgb 5.2 L*, Hct 19.2 L*, MCV 82.2, MCH 20.2 L, MCHC 24.5 L, RDW 18.8 H, Plt Count 129 L, MPV 9.9, Neut % (Auto) 83.1 H, Lymph % (Auto) 9.9 L, Bryan % (Auto) 6.2, Eos % (Auto) 0.6, Baso % (Auto) 0.2, Neut # (Auto) 7.5, Lymph # (Auto) 0.9, Bryan # (Auto) 0.6, Eos # (Auto) 0.1, Baso # (Auto) 0.0 03/24/22 14:13: Sodium 141, Potassium 5.4 H, Chloride 107, Carbon Dioxide 18 L, Anion Gap 21.4 H, BUN 40 H, Creatinine 3.50 H, Estimated Creat Clear 36, Estimated GFR 18 L*, Est GFR ( Amer) 22 L, Glucose 129 H, Calcium 8.4, Total Bilirubin 0.6, AST 21
--- NOTE | 2022-03-24 17:30 | PC.NURSE ---
Called lab to inquire on status of COVID results. Was advised that specimen is being put on to run now.
[2022-03-24 17:33] LABS: Coronavirus 19, PCR Not Detected (NotDetected); Influenza A, PCR Not Detected (NotDetected); Influenza B, PCR Not Detected (NotDetected)
--- NOTE | 2022-03-24 17:56 | PC.NURSE ---
ordered meal tray for pt
--- NOTE | 2022-03-24 18:07 | PC.NURSE ---
Called report to Dayna Lockhart
[2022-03-24 18:23] LABS: Troponin I 0.02 ng/ml (0.00-0.034)
--- NOTE | 2022-03-24 18:31 | PC.NURSE ---
Rounded on pt at this time. Advised him report had been called and we were waiting for him to be transferred to floor. PT had no other needs at this time.
--- NOTE | 2022-03-24 18:43 | PC.NURSE ---
patient arrived to floor by wheelchair from ED
--- NOTE | 2022-03-24 20:00 | PC.NURSE ---
warehouse processor attempted to retrieve blood from lab as it flagged ready, lab did not have blood ready at this time r/t cross match.
--- NOTE | 2022-03-24 20:22 | ECG_ITS ---
APPROVED REPORT Exam: Resting ECG HR:85 bpm ECG Measurements Heart Rate 85 AXES NV 147 P -24 QRSd 90 QRS 44 QT 372 T 51 QTc 414 Conclusion SINUS RHYTHM WITH OCCASIONAL SUPRAVENTRICULAR PREMATURE COMPLEXES BORDERLINE ECG UNCONFIRMED REPORT Electronically signed by : Nabil Lynch MD 03/25/2022 20:03:17
--- NOTE | 2022-03-24 20:30 | PC.NURSE ---
Ozzy Downs,GENERATOR SWITCHBOARD OPERATOR at bedside to assess pt, ekg was reviewed by provider at this time, not new orders for tizanidine p.o.
[2022-03-24 20:46] LABS: Troponin I 0.02 ng/ml (0.00-0.034)
--- NOTE | 2022-03-24 22:00 | PC.NURSE ---
lab was called to check on blood availability, blood not ready at this time. stated will call when ready.
--- NOTE | 2022-03-24 23:52 | PC.NURSE ---
Addendum entered by Tasneem Pfeiffer RN 03/25/22 01:40: pt has been kept informed of blood availability with return verbalized understanding. Original Note: lab called and stated that blood will need to be sent to [facility] for cross matching, stated that it may take 2 to 4 hours before ready. paul bradley np made aware of blood bank having to send out for cross match and may take up to 4 hours before blood will be ready, Paul verbalized understanding and no new orders received at this time.
[2022-03-25] VITALS (25 sets, daily range): BP systolic 133–182; BP diastolic 57–112; PULSE 70–96; RESP 15–81; TEMP 36.4–37.1; O2SAT 93–98; BMI 35.9; BMI 35.7
--- NOTE | 2022-03-25 06:11 | PC.NURSE ---
pt restless through the night, pt complained of severe muscle pain/right arm pain at beginning of shift relieved by tizanidine, pt medicated for mild chronic pain this am, pt still awaiting blood transfusion, pt's blood was required to be sent to [facility] for crossmatching and has not been completed at this time, pt is alert and oriented x4, abd large, distended, + bowel sounds, pt with + bm x2 after prescribed lactulose, skin pwd, VSS, lung sounds diminished with scattered wheezing noted, 02 sats 95% on room air, 1+ mild edema to ble noted, no acute distress.
[2022-03-25 06:51] LABS: Basophils % 0.3 % (0.1-2.0); Eosinophils # 0.1 K/mm3 (0.0-0.4); Eosinophils % 1.4 % (0.1-12.0); Lymphocytes # 0.9 K/mm3 (0.7-4.5); Mean Corpuscular HGB Conc 28.8 g/dL (31.8-35.4); Mean Corpuscular Hemoglobin 21.8 pg (27.0-31.2); Mean Corpuscular Volume 75.9 fl (80-94); Mean Platelet Volume 11.8 fl (7.4-10.4); Monocytes # 0.6 K/mm3 (0.1-1.0); Monocytes % 7.6 % (1.7-9.3); Neutrophils # 6.3 K/mm3 (1.8-7.8); Neutrophils % 79.7 % (37.0-80.0); Platelet Count 146 K/mm3 (142-424); Red Blood Count 2.35 M/mm3 (4.60-6.20); Red Cell Distribution Width 19.9 % (11.5-17.5); White Blood Count 7.9 K/mm3 (4.8-10.8)
[2022-03-25 07:01] LABS: Hematocrit 17.8 % (42.0-52.0)
--- NOTE | 2022-03-25 07:35 | HMH.PHAINT1 ---
Pharmacy Intervention Comments: Home medication reconciliation completed using outpatient pharmacy fill history and patient interview.
[2022-03-25 07:49] LABS: Chloride 105 mmol/L (98-107); Potassium 4.6 mmoL/L (3.5-5.1); Sodium 139 mmol/L (136-145)
[2022-03-25 07:51] LABS: Blood Urea Nitrogen 44 mg/dl (9-20); Creatinine Clearance Estimated 36 mL/min (50-200); Estimated Glomerular Filt Rate 19 ml/min (>60); GFR (African American) 23 ML/MIN (>60)
[2022-03-25 07:52] LABS: Alanine Aminotransferase 19 U/L (12-78); Albumin Level 4.2 g/dl (3.5-5.0); Albumin/Globulin Ratio 1.4 (1.1-1.8); Alkaline Phosphatase 182 U/L (38-126); Anion Gap 21.6 mEq/L (5-15); Aspartate Amino Transferase 28 U/L (17-59); Bilirubin,Total 0.4 mg/dl (0.2-1.3); Carbon Dioxide 17 mmol/L (22.0-30.0); Globulin 2.9 g/dL (1.3-3.2); Glucose 157 mg/dl (74-100); Hemoglobin 5.1 g/dL (14.1-18.0); Magnesium 1.7 mg/dl (1.6-2.3); Total Protein,Serum 7.1 g/dl (6.3-8.2)
--- NOTE | 2022-03-25 13:16 | EXP.PN ---
Subjective *Date: 03/25/22 *Time: 13:16 Interval history: Date of service March 25, 2022 The patient is sitting up in bed and reports no acute events overnight. I am accompanied by nursing staff, pharmacy and case management for multidisciplinary rounds. He is still awaiting blood transfusion. He reports that he lives by himself and is usually independent for activities of daily living. He identifies his Sister Mally White as his POA but has formed no legal documents. He reports infrequent evaluations by his PCP Dr. Cerda. He has not seen a mixer crane operator concerning his cirrhosis in over 4 years and reports no routine nephrology evaluation in over 2 years. The last manual arts therapist he saw was Riaz Mayen MD. He reports that in 2019 his creatinine got up to 7 and they requested that he proceed with left upper extremity AV fistula for dialysis therapy. He declined. He reports no routine alcohol intake and reports that his last alcohol intake has been several years ago. He reports that he was told he was anemic a few years ago. He has identified no acute blood loss and denies melena, hematemesis or hematochezia. His morning labs have been reviewed including hemoglobin of 5.1. His MCV identifies microcytosis. His meld score equals 19. His BMP identifies elevated anion gap metabolic acidosis with a creatinine 3.3 Exam Data for Last 24 hours Vital signs and Labs for Last 24 Hours: Temp Pulse Resp BP Pulse Ox 98.1 F 78 18 162/81 H 93 L 03/25/22 10:05 03/25/22 10:05 03/25/22 10:05 03/25/22 10:05 03/25/22 10:05 Laboratory Results - last 24 hr 03/24/22 14:13: WBC 9.0, RBC 2.34 L, Hgb 5.2 L*, Hct 19.2 L*, MCV 82.2, MCH 20.2 L, MCHC 24.5 L, RDW 18.8 H, Plt Count 129 L, MPV 9.9, Neut % (Auto) 83.1 H, Lymph % (Auto) 9.9 L, [place] % (Auto) 6.2, Eos % (Auto) 0.6, Baso % (Auto) 0.2, Neut # (Auto) 7.5, Lymph # (Auto) 0.9, [place] # (Auto) 0.6, Eos # (Auto) 0.1, Baso # (Auto) 0.0 03/24/22 14:13: Sodium 141, Potassium 5.4 H, Chloride 107, Carbon Dioxide 18 L, Anion Gap 21.4 H, BUN 40 H, Creatinine 3.50 H, Estimated Creat Clear 36, Estimated GFR 18 L*, Est GFR ( Amer) 22 L, Glucose 129 H, Calcium 8.4, Total Bilirubin 0.6, AST 21, ALT 15, Alkaline Phosphatase 212 H, Troponin I 0.02, NT-Pro-B Natriuret Pep 3360 H, Total Protein 7.1, Albumin 4.0, Globulin 3.1, Albumin/Globulin Ratio 1.3 03/24/22 14:13: Lactate 1.5 03/24/22 14:13: PT 10.9, INR 1.01 03/24/22 14:13: Blood Type Confirm O Positive 03/24/22 14:15: Ammonia 21 03/24/22 14:15: Urine Color Yellow, Urine Appearance Clear, Urine pH 6.0, Ur Specific [place] 1.015, Urine Protein Negative, Urine Glucose (UA) Negative, Urine Ketones Negative, Urine Blood Negative, Urine Nitrate Negative, Urine Bilirubin Negative, Urine Urobilinogen 0.2, Ur Leukocyte Esterase Trace, Urine RBC None, Urine WBC Occasional, Ur Squamous Epith Cells Occasional, Urine Bacteria None 03/24/22 16:25: SARS-CoV-2 (PCR) Not detected, Influenza A Untype (PCR) Not detected, Influenza Type B (PCR) Not detected 03/24/22 17:41: Troponin I 0.02 03/24/22 17:41: Blood Type O Positive, Antibody Screen Negative, Crossmatch (AHG) See Detail 03/24/22 20:15: Troponin I 0.02 03/25/22 06:32: WBC 7.9, RBC 2.35 L, Hgb 5.1 L*, Hct 17.8 L*, MCV 75.9 L, MCH 21.8 L, MCHC 28.8 L, RDW 19.9 H, Plt Count 146, MPV 11.8 H, Neut % (Auto) 79.7, Lymph % (Auto) 11.0, [place] % (Auto) 7.6, Eos % (Auto) 1.4, Baso % (Auto) 0.3, Neut # (Auto) 6.3, Lymph # (Auto) 0.9, [place] # (Auto) 0.6, Eos # (Auto) 0.1, Baso # (Auto) 0.0 03/25/22 06:32: Sodium 139, Potassium 4.6, Chloride 105, Carbon Dioxide 17 L, Anion Gap 21.6 H, BUN 44 H, Creatinine 3.30 H, Estimated Creat Clear 36, Estimated GFR 19 L*, Est GFR ( Amer) 23 L, Glucose 157 H D, Calcium 8.0 L, Magnesium 1.7, Total Bilirubin 0.4, AST 28 D, ALT 19 D, Alkaline Phosphatase 182 H, Total Protein 7.1, Albumin 4.2, Globulin 2.9, Albumin/Globulin Ratio 1.4 I & O for Last 24 hours: Intake & Output 03/22/22
--- NOTE | 2022-03-25 18:22 | PC.NURSE ---
Original transfusion order stated for pt to receive 40mg IVP between units of blood. Per Fabby Blair RN- RN was told not to give 40mg IVP Lasix between units of PRBC's per MD Griffiths.
[2022-03-25 23:26] LABS: Hematocrit 21.9 % (42.0-52.0)
[2022-03-25 23:58] LABS: Hemoglobin 6.5 g/dL (14.1-18.0)
[2022-03-26] VITALS (12 sets, daily range): BP systolic 114–157; BP diastolic 57–84; PULSE 68–97; RESP 18–22; TEMP 36.1–37; O2SAT 91–97; BMI 36.6
--- NOTE | 2022-03-26 00:01 | PC.NURSE ---
notified TRACI Preciado of Hgb of 6.5, ordered to transfuse another unit of blood and recheck H&H 2 hours after finished
--- NOTE | 2022-03-26 06:34 | PC.NURSE ---
pt A&OX4. ambulates to and from bathroom independently. tolerated blood transfusion well with no signs of reaction. o2 sats >90% on RA. CB in reach
[2022-03-26 06:35] LABS: Basophils # 0.1 K/mm3 (0-0.2); Chloride 107 mmol/L (98-107); Eosinophils # 0.1 K/mm3 (0.0-0.4); Eosinophils % 1.4 % (0.1-12.0); Lymphocytes # 1.1 K/mm3 (0.7-4.5)
[2022-03-26 06:36] LABS: Potassium 4.8 mmoL/L (3.5-5.1); Sodium 140 mmol/L (136-145)
[2022-03-26 06:38] LABS: Alanine Aminotransferase 13 U/L (12-78); Aspartate Amino Transferase 22 U/L (17-59); Basophils % 0.6 % (0.1-2.0); Blood Urea Nitrogen 42 mg/dl (9-20); Creatinine Clearance Estimated 36 mL/min (50-200); Estimated Glomerular Filt Rate 19 ml/min (>60); GFR (African American) 23 ML/MIN (>60); Hematocrit 25.2 % (42.0-52.0); Lymphocytes % 13.3 % (10-50); Mean Corpuscular HGB Conc 30.6 g/dL (31.8-35.4); Mean Corpuscular Hemoglobin 24.5 pg (27.0-31.2); Mean Corpuscular Volume 80.2 fl (80-94); Mean Platelet Volume 8.8 fl (7.4-10.4); Monocytes # 0.7 K/mm3 (0.1-1.0); Monocytes % 8.1 % (1.7-9.3); Neutrophils # 6.4 K/mm3 (1.8-7.8); Neutrophils % 76.6 % (37.0-80.0); Platelet Count 120 K/mm3 (142-424); Red Blood Count 3.15 M/mm3 (4.60-6.20); Red Cell Distribution Width 19.3 % (11.5-17.5); White Blood Count 8.3 K/mm3 (4.8-10.8)
[2022-03-26 06:39] LABS: Albumin Level 4.3 g/dl (3.5-5.0); Albumin/Globulin Ratio 1.4 (1.1-1.8); Alkaline Phosphatase 181 U/L (38-126); Anion Gap 17.8 mEq/L (5-15); Bilirubin,Total 0.7 mg/dl (0.2-1.3); Carbon Dioxide 20 mmol/L (22.0-30.0); Globulin 3.1 g/dL (1.3-3.2); Glucose 111 mg/dl (74-100); Magnesium 1.8 mg/dl (1.6-2.3); Total Protein,Serum 7.4 g/dl (6.3-8.2)
[2022-03-26 06:49] LABS: Hemoglobin 7.7 g/dL (14.1-18.0)
--- NOTE | 2022-03-26 07:44 | EXP.PN ---
Subjective *Date: 03/26/22 *Time: 07:44 Exam Data for Last 24 hours Vital signs and Labs for Last 24 Hours: Temp Pulse Resp BP Pulse Ox 98.3 F 80 22 152/72 H 94 L 03/26/22 05:00 03/26/22 05:00 03/26/22 05:00 03/26/22 05:00 03/26/22 05:00 Laboratory Results - last 24 hr 03/24/22 17:41: Blood Type O Positive, Antibody Screen Negative, Crossmatch (AHG) See Detail 03/25/22 06:32: Hgb 5.1 L* 03/25/22 06:32: Sodium 139, Potassium 4.6, Chloride 105, Carbon Dioxide 17 L, Anion Gap 21.6 H, BUN 44 H, Creatinine 3.30 H, Estimated Creat Clear 36, Estimated GFR 19 L*, Est GFR ( Amer) 23 L, Glucose 157 H D, Calcium 8.0 L, Magnesium 1.7, Total Bilirubin 0.4, AST 28 D, ALT 19 D, Alkaline Phosphatase 182 H, Total Protein 7.1, Albumin 4.2, Globulin 2.9, Albumin/Globulin Ratio 1.4 03/25/22 22:29: Hgb 6.5 L* D, Hct 21.9 L 03/26/22 06:15: WBC 8.3, RBC 3.15 L D, Hgb 7.7 L D, Hct 25.2 L, MCV 80.2, MCH 24.5 L, MCHC 30.6 L, RDW 19.3 H, Plt Count 120 L, MPV 8.8, Neut % (Auto) 76.6, Lymph % (Auto) 13.3, [place] % (Auto) 8.1, Eos % (Auto) 1.4, Baso % (Auto) 0.6, Neut # (Auto) 6.4, Lymph # (Auto) 1.1, [place] # (Auto) 0.7, Eos # (Auto) 0.1, Baso # (Auto) 0.1 03/26/22 06:15: Sodium 140, Potassium 4.8, Chloride 107, Carbon Dioxide 20 L, Anion Gap 17.8 H, BUN 42 H, Creatinine 3.30 H, Estimated Creat Clear 36, Estimated GFR 19 L*, Est GFR ( Amer) 23 L, Glucose 111 H D, Calcium 8.0 L, Magnesium 1.8, Total Bilirubin 0.7, AST 22, ALT 13 D, Alkaline Phosphatase 181 H, Total Protein 7.4, Albumin 4.3, Globulin 3.1, Albumin/Globulin Ratio 1.4 I & O for Last 24 hours: Intake & Output 03/23/22 03/24/22 03/25/22 03/26/22 23:59 23:59 23:59 23:59 Intake Total 2224 / 2704 730 / 730 Output Total 600 / 600 500 / 500 Balance 1624 / 2104 230 / 230 Weight 100.896 kg 107 kg 109.769 kg Assessment and Plan *Assessment and plan (1) Anemia in chronic renal disease: Status: Acute Qualifiers: Chronic kidney disease stage: stage 4 (severe) Qualified Code(s): N18.4 - Chronic kidney disease, stage 4 (severe); D63.1 - Anemia in chronic kidney disease Category: Medical Code(s): N18.9 - Chronic kidney disease, unspecified; D63.1 - Anemia in chronic kidney disease (2) Cirrhosis: Status: Acute Qualifiers: Hepatic cirrhosis type: alcoholic cirrhosis Ascites presence: unspecified Qualified Code(s): K70.30 - Alcoholic cirrhosis of liver without ascites Category: Medical Code(s): K74.60 - Unspecified cirrhosis of liver (3) CKD (chronic kidney disease) stage 4, GFR 15-29 ml/min: Status: Acute Category: Medical Code(s): N18.4 - Chronic kidney disease, stage 4 (severe) (4) Tobacco use: Status: Acute Category: Social Hx Code(s): Z72.0 - Tobacco use (5) History of hepatitis C: Status: Acute Category: Medical Code(s): Z86.19 - Personal history of other infectious and parasitic diseases Plan Anemia-microcytic with chronic kidney disease and hemoglobin down to 5.1 awaiting blood replacement products, iron replacement therapy with vitamin C, trending CBC, imaging identifies portal hypertension but patient reports no prior history of EGD or esophageal varices diagnoses. He has not visualized any blood loss. PPI therapy. Cirrhosis with meld equals 19-with past history of alcohol use disorder now discontinued. Patient will need to reestablish with gastroenterology and he plans to follow-up with Dr. Vaelncia in [place]. Continue with loop diuretic, lactulose, rifaximin, aldosterone antagonist and add beta-bessie therapy with portal hypertension seen on imaging. Goals of care conversation and patient currently full code with sister as POA. Chronic kidney disease stage IV-previously evaluated by Dr. Mayen nephrology, labs currently identify elevated anion gap metabolic acidosis and sodium bicarb started. Routine electrolyte and creatinine evaluatio
--- NOTE | 2022-03-26 08:22 | EXP.DC.SUM ---
General Admission date:: 03/24/22 HPI HPI HPI: Mr. Lemos is a 61-year-old gentleman with known history of cirrhosis, anemia, chronic kidney disease. He presented to the ER today due to progressive weakness over the past 1 to 2 weeks. States just walking across the house is like doing a full day's work. Gets winded easily. Has felt progressively worse over the past few months but most acutely the past week. Denies chest pain, cough, nausea, vomiting, diarrhea. Has regular bowel movements daily secondary to lactulose and rifaximin. Denies any confusion. No history of melenic stools or hematemesis per his report. On initial work-up found to be profoundly anemic with hemoglobin of 5.2. Patient remains alert and oriented and ambulates under his own power. Creatinine elevated at 3.5 (not significantly above his baseline). Medicine was consulted for admission, transfusion, and further monitoring. Exam Data for Last 24 hours Vital signs and Labs for Last 24 Hours: Temp Pulse Resp BP Pulse Ox 98.3 F 80 22 152/72 H 94 L 03/26/22 05:00 03/26/22 05:00 03/26/22 05:00 03/26/22 05:00 03/26/22 05:00 Laboratory Results - last 24 hr 03/24/22 17:41: Blood Type O Positive, Antibody Screen Negative, Crossmatch (AHG) See Detail 03/25/22 22:29: Hgb 6.5 L* D, Hct 21.9 L 03/26/22 06:15: WBC 8.3, RBC 3.15 L D, Hgb 7.7 L D, Hct 25.2 L, MCV 80.2, MCH 24.5 L, MCHC 30.6 L, RDW 19.3 H, Plt Count 120 L, MPV 8.8, Neut % (Auto) 76.6, Lymph % (Auto) 13.3, [place] % (Auto) 8.1, Eos % (Auto) 1.4, Baso % (Auto) 0.6, Neut # (Auto) 6.4, Lymph # (Auto) 1.1, [place] # (Auto) 0.7, Eos # (Auto) 0.1, Baso # (Auto) 0.1 03/26/22 06:15: Sodium 140, Potassium 4.8, Chloride 107, Carbon Dioxide 20 L, Anion Gap 17.8 H, BUN 42 H, Creatinine 3.30 H, Estimated Creat Clear 36, Estimated GFR 19 L*, Est GFR ( Amer) 23 L, Glucose 111 H D, Calcium 8.0 L, Magnesium 1.8, Total Bilirubin 0.7, AST 22, ALT 13 D, Alkaline Phosphatase 181 H, Total Protein 7.4, Albumin 4.3, Globulin 3.1, Albumin/Globulin Ratio 1.4 I & O for Last 24 hours: Intake & Output 03/23/22 03/24/22 03/25/22 03/26/22 23:59 23:59 23:59 23:59 Intake Total 2224 / 2704 730 / 730 Output Total 600 / 600 500 / 500 Balance 1624 / 2104 230 / 230 Weight 100.896 kg 107 kg 109.769 kg Constitutional Constitutional: no acute distress *Routine HEENT Exam Head: Present normocephalic Eye: Present EOMI and PERRL *Routine Neck Exam Neck: Present supple; Absent JVD *Routine Respiratory Exam Respiratory: Present rhonchi *Routine Cardiovascular Exam Cardiovascular: Present RRR *Routine Abdominal Exam Abdominal: Present soft, normoactive bowel sounds and obese *Routine Extremities Exam Extremities: Present full ROM *Routine Skin Exam Skin: Present intact; Absent rash *Routine Neurological Exam Neurological: Present alert, oriented X3 and moving all extremities; Absent sensory deficit or motor deficit Routine Psychiatric Exam Psychiatric: Present normal affect and cooperative Results Data Completed and Pending Labs on day of discharge: Labs from last 24 hours 03/26/22 03/26/22 03/25/22 06:15 06:15 22:29 WBC 8.3 RBC 3.15 L D Hgb 7.7 L D 6.5 L* D Hct 25.2 L 21.9 L MCV 80.2 MCH 24.5 L MCHC 30.6 L RDW 19.3 H Plt Count 120 L MPV 8.8 Neut % (Auto) 76.6 Lymph % (Auto) 13.3 [place] % (Auto) 8.1 Eos % (Auto) 1.4 Baso % (Auto) 0.6 Neut # (Auto) 6.4 Lymph # (Auto) 1.1 [place] # (Auto) 0.7 Eos # (Auto) 0.1 Baso # (Auto) 0.1 Sodium 140 Potassium 4.8 Chloride 107 Carbon Dioxide 20 L Anion Gap 17.8 H BUN 42 H Creatinine 3.30 H Estimated Creat Clear 36 Estimated GFR 19 L* Est GFR ( Amer) 23 L Glucose 111 H D Calcium 8.0 L Magnesium 1.8 Total Bilirubin 0.7 AST 22 ALT 13 D Alkaline Phosphatase 181 H Total Protein 7.4 Albumin 4.3 Globulin 3.1 Albumin/Globulin Ratio 1.
--- NOTE | 2022-03-26 09:00 | HMH.OTEV ---
OT Inpatient Evaluation Rehab OT IP Evaluation Start: 03/25/22 13:53 Freq: ONCE Status: Complete Protocol: Document 03/26/22 08:56 FLETCHER (Rec: 03/26/22 09:00 FLETCHER [id number]) Rehab OT IP Assessment Subjective History Pt oriented x 3 on arrival. Pt agreeable to engage in therapy evaluation. Pt was admitted via ED on 03/24/22 due to weakness and fatigue. Prior to being in the hospital . Pt lived at home alone. Pt claims he was independent with all ADLs and IADLs. Pt did not require any type of AE during ambulation. Subjective I can do just fine on my own. Objective Patient Orientation Person,Place,Birthday Upper Extremity Gross ROM WFL Bed Mobility bed mobility-scooting,bed mobility - supine/sit Assist Level Independent Transfer Training Sit/Stand Transfer Assist Level Independent Lower Body Dressing Ability Independent Overall Commode/Toilet Transfer Ability Independent Commode/Toilet Transfer Technique Sit to/from Ambulatory Rehab OT IP prob,goals,plan Problems Date of Evaluation: 03/26/22 Rehab Potential Rehab Potential Innapropriate for Skilled Therapy Discharge Plan OT Discharge Plan At this time, pt appears to be at his baseline with functional transfers and ADL's . Pt can return home alone once medically stable per physician. Eval Complexity Eval Charge Codes 36612 - Low Complexity G Codes G -code Required No PHYSICIAN CERTIFICATION: I certify the specified therapy services for Eliseo Hernandez are required, authorized, and reviewed every 30 days.
--- NOTE | 2022-03-26 09:34 | HMH.PTEV ---
Physical Therapy Evaluation Rehab PT IP Evaluation Start: 03/25/22 11:26 Freq: ONCE Status: Active Protocol: Document 03/26/22 09:22 SRIKANTH (Rec: 03/26/22 09:33 SRIKANTH [id number]) Subjective/History History History This is the initial IP PT evaluation for Eliseo Hernandez. Pt is a 61 y/o male admitted to [facility] for Anemia, dyspnea and weakness. Pt came into [facility] w/ hemoglobin <6 Subjective Subjective Pt reports feeling a whole lot better than he did upon admission - pt reports willing to get OOB and participate. Rehab PT IP Eval Objective Appearance Patient Orientation Place,Name,Birthday,Year, Situation Difficulty following instructions none Speech Pattern Clear,Appropriate Ambulation Patient Able to Ambulate Yes Ambulation Observation IP General Gait Pattern Observation No Deviations/Normal Ambulation Distance (feet) 150 Ambulation Assistive Device None Ambulation Ability Independent Balance Ability to Arise Able, w/o using arms Sitting Balance Steady, safe Standing Balance Narrow stance w/o support Dynamic Sitting Balance Ability Normal Dynamic Standing Balance Ability Normal Transfers Bed Transfer Ability Independent Chair Transfer Ability Independent Sit to Stand Bed Transfer Ability Independent Sit to Stand Chair Transfer Ability Independent Rehab PT IP prob,goals,plan Problems Date of Evaluation: 03/26/22 Rehab Potential Rehab Potential Innapropriate for Skilled Therapy Equipment Needs Assistive Devices None / NA Discharge Plan PT Discharge Plan No skilled needs at this time - pt safe toreturn home once medically stable. G -code Required Yes Eval Complexity Eval Charge Codes 87111 - Low Complexity G Codes PT Current Status Mobility PT Current Status Modifier CH-0% impaired, limited or restricted PT Goal Status Mobility PT Goal Status Modifer CH-0% impaired, limited or restricted PHYSICIAN CERTIFICATION: I certify the specified therapy services for Eliseo Hernandez are required, authorized, and reviewed every 30 days.
--- NOTE | 2022-03-26 11:12 | EXP.DC.SUM ---
General Admission date:: 03/24/22 Discharge date: 03/26/22 HPI HPI HPI: Mr. Lemos is a 61-year-old gentleman with known history of cirrhosis, anemia, chronic kidney disease. He presented to the ER today due to progressive weakness over the past 1 to 2 weeks. States just walking across the house is like doing a full day's work. Gets winded easily. Has felt progressively worse over the past few months but most acutely the past week. Denies chest pain, cough, nausea, vomiting, diarrhea. Has regular bowel movements daily secondary to lactulose and rifaximin. Denies any confusion. No history of melenic stools or hematemesis per his report. On initial work-up found to be profoundly anemic with hemoglobin of 5.2. Patient remains alert and oriented and ambulates under his own power. Creatinine elevated at 3.5 (not significantly above his baseline). Medicine was consulted for admission, transfusion, and further monitoring. Hospital Course Hospital Course Hospital Course: The patient was admitted to the telemetry unit with routine nursing interaction. Blood products were ordered and his laboratory studies were trended. His chemistries identified elevated anion gap acidosis consistent with his chronic kidney disease and uremia. He was started on sodium bicarbonate with improved indices. His creatinine remained stable throughout his stay at 3.3. With portal hypertension identified on imaging report beta-bessie therapy was added as well. No identified melena, hematochezia or hematemesis was identified throughout his stay. He tolerated his blood transfusion with no no adverse events. He was maintained on loop diuretic therapy and aldosterone antagonist. He received 3 units of packed red blood cells and his hemoglobin aidee to 7.7. He was started on iron therapy with vitamin C. The patient identified improvement and inquired about discharge home. Follow-up appointments were made with his GI doctor Dr. Valencia and food service associate Dr. Mayen. He understands the importance of follow-up with his consultants with his MELD=19. He voiced understanding on the importance of tobacco/smoking cessation. Exam Data for Last 24 hours Vital signs and Labs for Last 24 Hours: Temp Pulse Resp BP Pulse Ox 98.6 F 97 H 20 144/67 H 94 L 03/26/22 08:00 03/26/22 08:00 03/26/22 08:00 03/26/22 08:00 03/26/22 08:00 Laboratory Results - last 24 hr 03/24/22 17:41: Blood Type O Positive, Antibody Screen Negative, Crossmatch (AHG) See Detail 03/25/22 22:29: Hgb 6.5 L* D, Hct 21.9 L 03/26/22 06:15: WBC 8.3, RBC 3.15 L D, Hgb 7.7 L D, Hct 25.2 L, MCV 80.2, MCH 24.5 L, MCHC 30.6 L, RDW 19.3 H, Plt Count 120 L, MPV 8.8, Neut % (Auto) 76.6, Lymph % (Auto) 13.3, [place] % (Auto) 8.1, Eos % (Auto) 1.4, Baso % (Auto) 0.6, Neut # (Auto) 6.4, Lymph # (Auto) 1.1, [place] # (Auto) 0.7, Eos # (Auto) 0.1, Baso # (Auto) 0.1 03/26/22 06:15: Sodium 140, Potassium 4.8, Chloride 107, Carbon Dioxide 20 L, Anion Gap 17.8 H, BUN 42 H, Creatinine 3.30 H, Estimated Creat Clear 36, Estimated GFR 19 L*, Est GFR ( Amer) 23 L, Glucose 111 H D, Calcium 8.0 L, Magnesium 1.8, Total Bilirubin 0.7, AST 22, ALT 13 D, Alkaline Phosphatase 181 H, Total Protein 7.4, Albumin 4.3, Globulin 3.1, Albumin/Globulin Ratio 1.4 I & O for Last 24 hours: Intake & Output 03/23/22 03/24/22 03/25/22 03/26/22 23:59 23:59 23:59 23:59 Intake Total 2224 / 2704 1090 / 1090 Output Total 600 / 600 500 / 500 Balance 1624 / 2104 590 / 590 Weight 100.896 kg 107 kg 109.769 kg Constitutional Constitutional: no acute distress and chronically ill appearing *Routine HEENT Exam Head: Present normocephalic and atraumatic Eye: Present EOMI and PERRL ENT: Present mucous membranes moist *Routine Neck Exam Neck: Present supple and full ROM; Absent JVD or thyromegaly *Routine Respiratory Exam Respiratory: Present rhonchi, normal respiratory effort and symmetric chest movement; Absent respiratory distress *Routine
--- NOTE | 2022-03-31 14:54 | CARE MANAGER ---
Attempted to contact patient related to discharge from the hospital. No VM option.
== END 2022-03-26 13:12 | disposition home or self-care (01) | DRG 292 ==
LOC: ER 14:03 → 2ND 16:34
PROVIDERS: Family Medicine; Admitting Provider Internal Medicine Adolescent Medicine; Emergency Provider Emergency Medicine; PCP Family Medicine; Visit Provider Internal Medicine Adolescent Medicine
DX: I13.0 Hypertensive heart and chronic kidney disease with heart failure and stage 1 through stage 4 chronic kidney disease, or unspecified chronic kidney disease (principal); I50.32 Chronic diastolic (congestive) heart failure; N18.4 Chronic kidney disease, stage 4 (severe); D50.9 Iron deficiency anemia, unspecified; J44.9 Chronic obstructive pulmonary disease, unspecified; I10 Essential (primary) hypertension; F17.210 Nicotine dependence, cigarettes, uncomplicated; D63.1 Anemia in chronic kidney disease; K70.30 Alcoholic cirrhosis of liver without ascites; B19.20 Unspecified viral hepatitis C without hepatic coma; Z71.6 Tobacco abuse counseling
CPT/HCPCS: 36415; 71045; 74176; 80053; 81001; 82140; 83605; 83735; 83880; 84484; 85014; 85018; 85025; 85610; 86850; 87040; 93005; 97161; 97165; 99285; C9803; P9016; U0003; U0005

== ENCOUNTER 2023-02-14 10:17 | Inpatient (IN) | payer MEDICARE, SELFPAY ==
[2023-02-14] VITALS (55 sets, daily range): BP systolic 110–171; BP diastolic 48–90; PULSE 87–112; RESP 16–26; TEMP 36.3–37.2; O2SAT 88–100; BMI 38.7; BMI 39.9
--- NOTE | 2023-02-14 10:38 | ECG_ITS ---
APPROVED REPORT Exam: Resting ECG HR:97 bpm ECG Measurements Heart Rate 97 AXES VT 157 P 55 QRSd 94 QRS 52 QT 350 T 91 QTc 405 Conclusion SINUS RHYTHM POSSIBLE RIGHT VENTRICULAR CONDUCTION DELAY [RSR (QR) IN V1/V2] NONSPECIFIC ST & T-WAVE ABNORMALITY BORDERLINE ECG UNCONFIRMED REPORT Electronically signed by : Nabil Lynch MD 02/15/2023 15:07:22
--- NOTE | 2023-02-14 11:11 | XR_ITS ---
PROCEDURE INFORMATION: Exam: XR Chest Exam date and time: 02/14/2023 12:57 PM Age: 62 years old Clinical indication: Dyspnea; Additional info: SOA TECHNIQUE: Imaging protocol: Radiologic exam of the chest. Views: 1 view. COMPARISON: CR XR CHEST PORTABLE 03/24/2022 2:07 PM FINDINGS: Lungs: Unremarkable. No consolidation. Pleural spaces: Unremarkable. No pleural effusion. No pneumothorax. Heart/Mediastinum: Unremarkable. No cardiomegaly. Bones/joints: Unremarkable. IMPRESSION: No acute findings.
--- NOTE | 2023-02-14 11:11 | CT_ITS ---
PROCEDURE INFORMATION: Exam: CT Abdomen And Pelvis Without Contrast Exam date and time: 02/14/2023 12:39 PM Age: 62 years old Clinical indication: Abdominal pain; Flank; Right lower quadrant (rlq); Additional info: Rlq pain TECHNIQUE: Imaging protocol: Computed tomography of the abdomen and pelvis without contrast. Radiation optimization: All CT scans at this facility use at least one of these dose optimization techniques: automated exposure control; mA and/or kV adjustment per patient size (includes targeted exams where dose is matched to clinical indication); or iterative reconstruction. REPORTING DATA: Count of CT and Cardiac NM exams in prior 12 months: This patient has received [address] and 0 known cardiac nuclear medicine studies in the 12 months prior to the current study. COMPARISON: CT ABDOMEN PELVIS WO CON 03/24/2022 2:51 PM FINDINGS: Liver: Nodular cirrhotic liver. Gallbladder and bile ducts: Gallbladder contains calcified gallstones. Pericholecystic fluid, nonspecific in the setting of ascites. No gallbladder wall thickening. Pancreas: Unremarkable. Spleen: Splenomegaly, measuring 16.0 cm in craniocaudal axis. Adrenal glands: Unremarkable. Kidneys and ureters: No renal or ureteral stones. No hydronephrosis. Non-specific bilateral symmetric perinephric fat stranding, not significantly changed from prior exam. Stomach and bowel: No evidence of bowel obstruction or acute inflammatory changes in the gastrointestinal tract. Appendix: Appendix is visualized and is normal. Intraperitoneal space: Small volume ascites. No evidence of pneumoperitoneum. Vasculature: Moderate amount of calcific arterial atherosclerosis throughout the aorta. No abdominal aortic aneurysm. Lymph nodes: Unremarkable. Urinary bladder: Unremarkable. Reproductive: Mildly enlarged prostate, measuring 4.5 cm in transverse axis. Bones/joints: No evidence of acute osseous abnormality. Soft tissues: Mild anasarca. Gynecomastia. IMPRESSION: 1. No acute findings in the abdomen or pelvis. 2. Cirrhosis. 3. Small volume ascites. 4. Cholelithiasis without evidence of acute cholecystitis. 5. Mild anasarca. 6. Mildly enlarged prostate. 7. Gynecomastia.
--- NOTE | 2023-02-14 11:17 | HMH.EDGENADL ---
Discharge Plan Disposition Patient Disposition: Admitted Clinical Impressions Clinical Impression: Symptomatic anemia, CKD (chronic kidney disease) stage 4, GFR 15-29 ml/min, History of hepatitis C, Alcoholic cirrhosis Discharge ED Provider: Cindy Winters General Adult HPI <Alexi Dunlap MD - Last Filed: 02/14/23 16:03> General Chief complaint: Weakness Stated complaint: soa, leg/stomach pain Time Seen by Provider: 02/14/23 10:19 Mode of Arrival: Ambulatory Source of Information: Patient Limitations: No Limitations Description of Symptoms (Recalled from ER Triage Doc. by RN): pt to ed c/o lethargy, LE edema and increased SOA. pt reports a hx of chf and recent anemia dx. pt reports a decrease in urinary output. pt reports not taking his lactulose. History of Present Illness HPI narrative: Patient presents for evaluation of generalized weakness, fatigue, bilateral lower extremity edema, patient has known history of cirrhosis, CHF, CKD. Patient has history of hepatitis C, IV drug use per chart review. Denies any recent drug use. Patient of note has had symptoms in the past that are of similar etiology that he attributes to anemia of indeterminate etiology. Does report positive family history of anemia. Denies any hematemesis, nausea, vomiting, overt abdominal pain, or black or tarry stools. No previous therapies. Has been compliant with home medications including carvedilol, lactulose, omeprazole. No known sick contacts, no syncope or presyncope. No recent travel. No chest pain. Related Data Home Medications Medication Instructions Recorded Confirmed lactulose 10 gram/15 mL oral 15 ml PO BID constipation 03/25/22 03/31/22 solution Previous Rx's Medication Instructions Recorded ascorbic acid (vitamin C) 500 mg 250 mg PO BID #30 tabs 03/26/22 tablet (Vitamin C) carvedilol 3.125 mg tablet 3.125 mg PO BID #60 tabs 03/26/22 polysaccharide iron complex 150 mg 150 mg PO DAILY #30 caps 03/26/22 iron capsule (Ferrex) sodium bicarbonate 650 mg tablet 650 mg PO TID #90 tabs 03/26/22 oxycodone 5 mg tablet 5 mg PO BID PRN pain #45 tabs 05/24/22 albuterol sulfate 90 mcg/actuation 2 inh inhalation Q6H PRN shortness 07/03/22 aerosol inhaler (ProAir HFA) of air/wheezing #8.5 grams entecavir 1 mg tablet 1 mg PO DAILY Hepatitis #90 tabs 07/03/22 omeprazole 40 mg capsule,delayed 40 mg PO DAILY acid reflux #90 caps 07/03/22 release rifaximin 550 mg tablet (Xifaxan) 550 mg PO BID liver disease #180 07/03/22 tabs furosemide 40 mg tablet See Rx Instructions .Route 12/29/22 .COMPLEX #60 tabs spironolactone 25 mg tablet See Rx Instructions .Route 12/29/22 .COMPLEX #30 tabs tizanidine 4 mg tablet See Rx Instructions .Route 12/29/22 .COMPLEX #90 tabs Allergies Allergy/AdvReac Type Severity Reaction Status Date / Time No Known Allergies Allergy Verified 03/31/22 10:37 PFS <Alexi Dunlap MD - Last Filed: 02/14/23 16:03> PFS Disclaimer: The information contained in this section may have been updated after the patient was seen, as this information can be updated by other users. Medical History Chest pain Cirrhosis Dyspnea Family history of ischemic heart disease History of cocaine abuse History of intravenous drug abuse Hypertension Syncope Family History Other Hypertension Social History Smoking Status: Current every day smoker tobacco type: cigarettes packs per day: 2 second hand exposure: Yes alcohol intake: former substance use type: former substance user, crack/cocaine and heroin current occupational status: disabled Travel in the last 8 weeks: None household members: none housing: other current occupational exposures/hazards: No caffeine: Yes <Alexi Dunlap MD - Last Filed: 02/14/23 16:03> ROS Obtained:
--- NOTE | 2023-02-14 11:18 | PC.NURSE ---
walked pt to bathroom.
[2023-02-14 11:19] LABS: Basophils % 0.2 % (0.1-2.0); Eosinophils # 0.1 K/mm3 (0.0-0.4); Eosinophils % 1.6 % (0.1-12.0); Mean Corpuscular HGB Conc 25.6 g/dL (31.8-35.4); Mean Corpuscular Hemoglobin 20.7 pg (27.0-31.2); Mean Corpuscular Volume 80.7 fl (80-94); Mean Platelet Volume 9.5 fl (7.4-10.4); Monocytes # 0.4 K/mm3 (0.1-1.0); Monocytes % 6.8 % (1.7-9.3); Neutrophils # 4.6 K/mm3 (1.8-7.8); Neutrophils % 75.4 % (37.0-80.0); Platelet Count 120 K/mm3 (142-424); Red Blood Count 2.12 M/mm3 (4.60-6.20); Red Cell Distribution Width 21.2 % (11.5-17.5); White Blood Count 6.1 K/mm3 (4.8-10.8)
--- NOTE | 2023-02-14 11:23 | PC.NURSE ---
CRITICAL H&H 4.4/17.1 RECEIVED FROM [facility] IN LAB. PT NAME AND R/V. DR ALVARES NOTIFIED. NO NEW ORDERS AT THIS TIME
[2023-02-14 11:24] LABS: Hematocrit 17.1 % (42.0-52.0)
[2023-02-14 11:29] LABS: Alanine Aminotransferase 22 U/L (12-78); Albumin Level 3.4 g/dl (3.5-5.0); Alkaline Phosphatase 114 U/L (38-126); Anion Gap 18.5 mEq/L (5-15); Aspartate Amino Transferase 32 U/L (17-59); Bilirubin,Total 0.9 mg/dl (0.2-1.3); Blood Urea Nitrogen 34 mg/dl (9-20); Calcium 7.8 mg/dl (8.4-10.2); Carbon Dioxide 21 mmol/L (22.0-30.0); Chloride 108 mmol/L (98-107); Creatinine Clearance Estimated 43 mL/min (50-200); Estimated Glomerular Filt Rate 22 ml/min (>60); GFR (African American) 27 ML/MIN (>60); Globulin 3.3 g/dL (1.3-3.2); Glucose 149 mg/dl (74-100); Lipase 74 U/L (23-300); Magnesium 1.7 mg/dl (1.6-2.3); Phosphorous 4.5 mg/dl (2.5-4.5); Potassium 4.5 mmoL/L (3.5-5.1); Sodium 143 mmol/L (136-145); Total Protein,Serum 6.7 g/dl (6.3-8.2)
[2023-02-14 11:37] LABS: NT Pro Brain Natriuretic Pep. 6400 pg/mL (0-125)
--- NOTE | 2023-02-14 11:37 | PC.NURSE ---
pt aware that urine sample is needed collected blood for type and screen
[2023-02-14 12:06] LABS: Acetaminophen < 10 ug/ml (10-30)
[2023-02-14 12:32] LABS: Hemoglobin 4.5 g/dL (14.1-18.0)
--- NOTE | 2023-02-14 12:42 | PC.NURSE ---
pt back to room from [facility]
--- NOTE | 2023-02-14 12:50 | PC.NURSE ---
blood consent signed by patient and placed with patient records
[2023-02-14 13:10] LABS: Appearance,Urine CLEAR (Clear); Bilirubin,Urine Negative (Negative); Blood, Urine Negative (Negative); Color,Urine YELLOW (Yellow); Glucose,Urine (UA) Negative (Negative); Ketones,Urine Negative (Negative); Leukocyte Esterase,Urine Negative (Negative); Microscopic, Urine URINE MICROSCOPIC (MICROSCOPIC); Nitrate,Urine Negative (Negative); Protein,Urine 1+ (Negative); Specific Gravity, Urine 1.015 (1.005-1.030); Urobilinogen,Urine 0.2 EU/dl (0.2)
[2023-02-14 13:34] LABS: Squamous Epithelial Cell,Urine Occasional #/hpf (0-5)
--- NOTE | 2023-02-14 14:24 | PC.NURSE ---
Dr Dunlap speaking to hospitalist.
[2023-02-14 14:28] LABS: Iron 20 ug/dL (49-181)
--- NOTE | 2023-02-14 14:36 | PC.NURSE ---
pt resting in bed no needs at this time,call light at bs
[2023-02-14 14:37] LABS: Total Iron Binding Capacity 354 ug/dL (261-462)
[2023-02-14 14:55] LABS: INR 1.11 (0.9-1.1); Prothrombin Time 11.9 seconds (10.1-12.5)
[2023-02-14 15:05] LABS: Ferritin 5.32 ng/ml (17.9-464)
--- NOTE | 2023-02-14 15:17 | PC.NURSE ---
called [facility] transfer center to stated they would call back in 20-30 minutes due to be backed up
--- NOTE | 2023-02-14 15:19 | PC.NURSE ---
[facility] transferred called to speak with
[2023-02-14 15:36] LABS: Occult Blood,Stool Negative (Negative)
--- NOTE | 2023-02-14 15:57 | PC.NURSE ---
calling [facility] for transfer due to [facility] being on divert
--- NOTE | 2023-02-14 16:57 | PC.NURSE ---
called lab to check status of blood. spoke with skyla who states blood has been done for a while now. this nurse is unable to locate documentation of notification record. ER staff members all state they didn't receive a phone call. lab states blood was marked ready at 1554. dry house attendant made aware.
--- NOTE | 2023-02-14 17:36 | PC.NURSE ---
[facility] accepted pt will call back with a bed
--- NOTE | 2023-02-14 17:36 | PC.NURSE ---
speaking with gi doctor and center medical specialist of [facility]
[2023-02-14 21:55] LABS: Hematocrit 21.1 % (42.0-52.0)
[2023-02-14 22:01] LABS: Hemoglobin 5.8 g/dL (14.1-18.0)
--- NOTE | 2023-02-14 22:13 | PC.NURSE ---
OBSERVATION ADMISSION TO 207 WITH DX OF SYMPTOMATIC ANEMIA TO SERVICE OF THE HOSPITALIST.
--- NOTE | 2023-02-14 22:19 | PC.NURSE ---
Michele the Hospitalist in room talking with patient at this time.
--- NOTE | 2023-02-14 22:57 | EXP.HP ---
History of Present Illness *Admission Date: 02/14/23 *Reason for visit:: Anemia *History of present illness: 62 year old male patient presents for evaluation of generalized weakness, fatigue, bilateral lower extremity edema. PMHX of cirrhosis, CHF, CKD, and tobacco abuse. Patient has history of hepatitis C, IV drug use per chart review. Denies any recent drug use. Patient of note has had symptoms in the past that are of similar etiology that he attributes to anemia of indeterminate etiology. Does report positive family history of anemia. Denies any hematemesis, nausea, vomiting, overt abdominal pain, or black or tarry stools. No previous therapies. Has been compliant with home medications including carvedilol, lactulose, omeprazole. No known sick contacts, no syncope or presyncope. No recent travel. No chest pain. His ED workup concluded a hemoglobin 4.5, MCV 80.7, platelet count 120, INR 1.11, creatinine 2.90 consistent with baseline, BUN 34, iron 20 mcg/dL, ferritin 5.32, BNP 6400, fecal occult blood test negative. He received transfusion of 2 units packed red blood cells, ceftriaxone 1 g, octreotide, morphine 4 mg IV x1, Zofran 4 mg IV x1. His CT of his abd reveals cirrhosis without any acute findings. After two units of blood his hgb increased to 5.8. He was accepted at the [facility] by Dr. Chow ( gastroenterology) and Dr. Harrison (hospitalist.) He has spent 12 hours in the ED refusing to be transferred. is aware and pt will remain on the waitlist. In the 12 hours of waiting in the ED the patient has not had any upper or lower GI bleeding. Due to still requiring blood transfusions, the ED physician consulted the hospitalist team requesting admission for further medical management. The patient was admitted to the medical floor. He appears pale but is hemodynamically stable without noticeable hemorrhaging. I asked the patient what his goals of care are. The patient states he wants to receive blood and then follow up with GI on an outpatient basis. He states he does not have the social support to be admitted into another hospital outside of [facility]. I explained to him that we do not have the resources needed if he starts having a upper or lower GI bleed. I explained to him that the plan was to transfuse blood and still transfer him to the [facility] since GI is not in this hospital. The pt states he understands and would like to continue to receive the blood transfusions. [facility] Disclaimer: The information contained in this section may have been updated after the patient was seen, as this information can be updated by other users. Medical History Chest pain Cirrhosis Dyspnea Family history of ischemic heart disease History of cocaine abuse History of intravenous drug abuse Hypertension Syncope Family History Other Hypertension Social History Smoking Status: Current every day smoker tobacco type: cigarettes packs per day: 2 second hand exposure: Yes alcohol intake: former substance use type: former substance user, crack/cocaine and heroin current occupational status: disabled Travel in the last 8 weeks: None household members: none housing: other current occupational exposures/hazards: No caffeine: Yes Review of Systems *Cardiovascular Cardiovascular: Reports dyspnea and Reports dyspnea on exertion *Respiratory Respiratory: Reports dyspnea and Reports dyspnea on exertion *Gastrointestinal Gastrointestinal: Denies change in stool character, Denies loose stools and Denies vomiting *Genitourinary Genitourinary: Reports system reviewed and no additional complaints, except as documented *Musculoskeletal Musculoskeletal: Reports system reviewed and no additional complaints, except as documented *Rodger
--- NOTE | 2023-02-14 22:58 | PC.NURSE ---
pt arrived to the floor at this time
[2023-02-15] VITALS (22 sets, daily range): BP systolic 128–172; BP diastolic 66–90; PULSE 78–105; RESP 18–26; TEMP 36.3–37.3; O2SAT 92–100; BMI 39.9
[2023-02-15 03:13] LABS: Hematocrit 23.8 % (42.0-52.0)
[2023-02-15 03:22] LABS: Hemoglobin 6.7 g/dL (14.1-18.0)
--- NOTE | 2023-02-15 04:20 | PC.NURSE ---
One unit PRBC transfused without complications. Post transfusion hemoglobin remains critical at 6.7, called to Michele Ledbetter APRN, second unit currently transfusing.
[2023-02-15 08:06] LABS: Hematocrit 25.5 % (42.0-52.0)
[2023-02-15 08:20] LABS: Hemoglobin 7.4 g/dL (14.1-18.0)
--- NOTE | 2023-02-15 09:14 | EXP.PN ---
Subjective *Date: 02/15/23 *Time: 09:14 Interval history: The patient is seen and examined today at bedside. I am accompanied by nursing staff. Nursing staff report that he remains afebrile with improved heart rates and stable blood pressures. He is saturating appropriately on room air. He reports no hematemesis or hematochezia. He reports dark bowel movements over the last few weeks. He denies abdominal pain. He reports his last EGD and colonoscopy were in 2017. He reports noncompliance with medical follow-up. A goals of care conversation occurred today. Exam Data for Last 24 hours Vital signs and Labs for Last 24 Hours: Temp Pulse Resp BP Pulse Ox O2 Del Method O2 Flow Rate 98.3 F 91 H 19 142/70 H 95 Room Air 3 02/15/23 07:38 02/15/23 07:38 02/15/23 07:38 02/15/23 07:38 02/15/23 07:38 02/15/23 07:38 02/14/23 23:00 Laboratory Results - last 24 hr 02/14/23 10:35: WBC 6.1, RBC 2.12 L, Hgb 4.5 L*, Hct 17.1 L*, MCV 80.7, MCH 20.7 L, MCHC 25.6 L, RDW 21.2 H, Plt Count 120 L, MPV 9.5, Neut % (Auto) 75.4, Lymph % (Auto) 16.0, Coles % (Auto) 6.8, Eos % (Auto) 1.6, Baso % (Auto) 0.2, Neut # (Auto) 4.6, Lymph # (Auto) 1.0, Coles # (Auto) 0.4, Eos # (Auto) 0.1, Baso # (Auto) 0.0, PT 11.9, INR 1.11 H, Sodium 143, Potassium 4.5, Chloride 108 H, Carbon Dioxide 21 L, Anion Gap 18.5 H, BUN 34 H, Creatinine 2.90 H, Estimated Creat Clear 43, Estimated GFR 22 L, Est GFR ( Amer) 27 L, Glucose 149 H, Calcium 7.8 L, Phosphorus 4.5, Magnesium 1.7, Iron 20 L, TIBC 354, Iron Saturation 5.54642 L, Ferritin 5.32 L, Total Bilirubin 0.9, AST 32, ALT 22, Alkaline Phosphatase 114, NT-Pro-B Natriuret Pep 6400 H, Total Protein 6.7, Albumin 3.4 L, Globulin 3.3 H, Albumin/Globulin Ratio 1.0 L, Lipase 74, Acetaminophen < 10 L 02/14/23 11:11: Urine Color Yellow, Urine Appearance Clear, Urine pH 6.0, Ur Specific Garland 1.015, Urine Protein 1+, Urine Glucose (UA) Negative, Urine Ketones Negative, Urine Blood Negative, Urine Nitrate Negative, Urine Bilirubin Negative, Urine Urobilinogen 0.2, Ur Leukocyte Esterase Negative, Urine RBC None, Urine WBC 3-5, Ur Squamous Epith Cells Occasional, Urine Bacteria None 02/14/23 15:14: Stool Occult Blood Negative 02/14/23 21:42: Hgb 5.8 L* D, Hct 21.1 L 02/14/23 : Blood Type O Positive, Antibody Screen Negative, Crossmatch (AHG) See Detail 02/15/23 03:00: Hgb 6.7 L*, Hct 23.8 L 02/15/23 07:55: Hgb 7.4 L D, Hct 25.5 L Temp Pulse Resp BP Pulse Ox 98.6 F 97 H 20 144/67 H 94 L 03/26/22 08:00 03/26/22 08:00 03/26/22 08:00 03/26/22 08:00 03/26/22 08:00 Laboratory Results - last 24 hr 03/24/22 17:41: Blood Type O Positive, Antibody Screen Negative, Crossmatch (AHG) See Detail 03/25/22 22:29: Hgb 6.5 L* D, Hct 21.9 L 03/26/22 06:15: WBC 8.3, RBC 3.15 L D, Hgb 7.7 L D, Hct 25.2 L, MCV 80.2, MCH 24.5 L, MCHC 30.6 L, RDW 19.3 H, Plt Count 120 L, MPV 8.8, Neut % (Auto) 76.6, Lymph % (Auto) 13.3, Coles % (Auto) 8.1, Eos % (Auto) 1.4, Baso % (Auto) 0.6, Neut # (Auto) 6.4, Lymph # (Auto) 1.1, Coles # (Auto) 0.7, Eos # (Auto) 0.1, Baso # (Auto) 0.1 03/26/22 06:15: Sodium 140, Potassium 4.8, Chloride 107, Carbon Dioxide 20 L, Anion Gap 17.8 H, BUN 42 H, Creatinine 3.30 H, Estimated Creat Clear 36, Estimated GFR 19 L*, Est GFR ( Amer) 23 L, Glucose 111 H D, Calcium 8.0 L, Magnesium 1.8, Total Bilirubin 0.7, AST 22, ALT 13 D, Alkaline Phosphatase 181 H, Total Protein 7.4, Albumin 4.3, Globulin 3.1, Albumin/Globulin Ratio 1.4 I & O for Last 24 hours: Intake & Output 02/12/23 02/13/23 02/14/23 02/15/23 23:59 23:59 23:59 23:59 Intake Total 0.14 / 0.14 820 / 820 Output Total 125 / 125 0 / 0 Balance -124.86 / -124.86 820 / 820 Weight 119.386 kg 119.386 kg Intake & Output 03/23/22 03/24/22 03/25/22 03/26/22 23:59 23:59 23:59 23:59 Intake Total 2224 / 2704 1090 / 1090 Output Total 600 / 600 500 / 500 Balance 1624 / 2104 590 / 590 Weight 100.896 kg 107 kg 109.769 kg Constitutional
[2023-02-15 13:12] LABS: Hematocrit 26.4 % (42.0-52.0); Hemoglobin 7.3 g/dL (14.1-18.0)
--- NOTE | 2023-02-15 14:29 | PC.NURSE ---
hospice came in to speak with pt about their services. pt reports he would like to speak with his sister about his ongoing treatment prior to making any final decisions.
[2023-02-15 21:16] LABS: Hematocrit 25.7 % (42.0-52.0); Hemoglobin 7.3 g/dL (14.1-18.0)
[2023-02-16 03:57] VITALS: BP 151/92; PULSE 99; RESP 24; TEMP 37.1; O2SAT 93; BMI 39.8
[2023-02-16 07:19] LABS: Basophils % 0.2 % (0.1-2.0); Eosinophils # 0.1 K/mm3 (0.0-0.4); Hematocrit 26.1 % (42.0-52.0); Hemoglobin 7.5 g/dL (14.1-18.0); Lymphocytes # 1.1 K/mm3 (0.7-4.5); Lymphocytes % 13.5 % (10-50); Mean Corpuscular HGB Conc 28.7 g/dL (31.8-35.4); Mean Corpuscular Hemoglobin 24.9 pg (27.0-31.2); Mean Corpuscular Volume 86.5 fl (80-94); Mean Platelet Volume 11.7 fl (7.4-10.4); Monocytes # 0.6 K/mm3 (0.1-1.0); Monocytes % 7.1 % (1.7-9.3); Neutrophils # 6.4 K/mm3 (1.8-7.8); Neutrophils % 78.2 % (37.0-80.0); Platelet Count 126 K/mm3 (142-424); Red Blood Count 3.02 M/mm3 (4.60-6.20); Red Cell Distribution Width 19.3 % (11.5-17.5); White Blood Count 8.2 K/mm3 (4.8-10.8)
[2023-02-16 07:23] LABS: Blood Urea Nitrogen 41 mg/dl (9-20); Calcium 7.6 mg/dl (8.4-10.2); Carbon Dioxide 21 mmol/L (22.0-30.0); Chloride 110 mmol/L (98-107); Creatinine Clearance Estimated 36 mL/min (50-200); Estimated Glomerular Filt Rate 17 ml/min (>60); GFR (African American) 21 ML/MIN (>60); Glucose 137 mg/dl (74-100); Sodium 143 mmol/L (136-145)
[2023-02-16 07:39] VITALS: BP 118/76; PULSE 85; RESP 18; TEMP 37.2; O2SAT 96
[2023-02-16 08:04] LABS: Ammonia 61 umol/L (9-30)
[2023-02-16 11:12] VITALS: BP 128/61; PULSE 81; RESP 18; TEMP 37.2; O2SAT 97
--- NOTE | 2023-02-16 11:53 | CA_ITS ---
APPROVED REPORT EXAM: Comprehensive 2D, Doppler, and color-flow Echocardiogram Hotel Front Desk Agent: Cyndi Burns RVT Ht: 5 ft 8 in Wt: 262lbs BSA: 2.29 BP: 136/60 mmHg Indications: MURMUR,CIRRHOSIS,EDEMA,CP,SMOKER,HTN,CHF,ASCITES TDS-PT SCANNED UPRIGHT-UNABLE TO LAY BACK R/T ASCITES 2D Dimensions LVOT 2.44 cm (M/F) 1.5-2.5 LA Volume 99.90 mL LA Volume Index 43.62 mL/m2 (M/F) 16-34 M-Mode Dimensions RVDd 5.23 cm (0.9-2.6) LA Diam 4.63 cm (1.9-4.0) LVDd 5.01 cm (3.5-5.7) Ao Diam 3.52 cm (2.0-3.7) LVDs 3.49 cm (3.5-5.7) IVSd 0.94 cm (0.6-1.1) PWd 0.72 cm (0.6-1.1) EF (Teich) 57.50% FS 30.30% EDV (Teich) 118.80 mL TAPSE 2.78 (<1.7) ESV (Teich) 50.50 mL LV Diastology E Decel Time 217.00 (160-240 msec) E/A Ratio 1.0 MED E' 8.20 (< 7 cm/sec) E'/MED E' Ratio 13.48 (>14) LAT E' 9.50 (<10 cm/sec) E/LAT E' Ratio 11.63 (>14) Aortic Valve LVOT Max 140.00 (70-110 cm/s) LVOT VTI 26.81 cm AoV Peak Jasen. 188.00 (50-130 cm/s) AO Peak GR. 14.10 mmHg AO Mean GR. 6.80 (<5 mmHg) AO VTI 33.95 (18-25 cm) URIEL (VTI) 3.69 (2.5-4.5 cm2) Mitral Valve MV E Max Jasen. 110.00 (40-130 cm/s) MV A Velocity 105.00 (40-130 cm/s) E/A Ratio 1.05 MV Decel. Time 217.00 (160-240 ms) MV PHT 63.00 ms Pulmonary Valve PV Peak Velocity 98.00 (50-150 cm/s) Tricuspid Valve TR P. Velocity 355.00 cm/s RAP Estimate 10.00 mmHg RVSP 60.30 mmHg Left Ventricle The left ventricle is normal size. The left ventricular systolic function is normal. The left ventricular ejection fraction is within the normal range. There is normal left ventricular wall thickness. There is normal LV segmental wall motion. Diastolic function is indeterminate. LVEF is 55%. Right Ventricle The right ventricle is mildly dilated. Atria Left atrium is mildly dilated. The right atrium size is normal. Aortic Valve The aortic valve is mildly thickened. There is no aortic valvular stenosis. Trace aortic regurgitation. Mitral Valve The mitral valve is mildly thickened. No evidence of mitral valve stenosis. Mild mitral regurgitation. Tricuspid Valve The tricuspid valve leaflets are thin and pliable. Moderate tricuspid regurgitation. RVSP is 45-50 mmHg. Pulmonic Valve The pulmonary valve is normal in structure. Trace pulmonic regurgitation. Great Vessels The aortic root is normal in size. The ascending aorta is normal in size. IVC is normal in size and collapses >50% with inspiration. Pericardium There is no pericardial effusion. Ascites is present. Other Information Study Quality: Technically Difficult Conclusion Technically difficult study due to poor accoustic windows. Normal biventricular systolic function Mild LA enlargement Moderate TR Mild MR Elevated RVSP 45-50 mmHg Ascites is present Electronically signed by : Emily Martinez MD 02/20/2023 20:55:49
--- NOTE | 2023-02-16 11:54 | SW/DCPLANNER ---
Addendum entered by Fabiana Samson 02/17/23 08:27: The plan for this patient is to discharge home today and Hospice to follow up w/ patient at home. I have updated Erin henry/ Hospice regarding plan. Updated information will be faxed to Hospice this AM. Addendum entered by Fabiana Samson 02/16/23 16:41: After Dr Daniel's discussion w/ patient the plan is for Hospice to come speak w/ patient in the AM and I have updated his sister regarding this plan. Addendum entered by Fabiana Samson 02/16/23 16:28: Patient is now undecided about Hospice and stated that he would need time to make any decisions. I spoke w/ patient again w/ nurse (Shannon) present: he is agreeable to Hospice nurse coming this evening to continue to inform patient of their services. Discharge date is unknown at this time. Addendum entered by Fabiana Samson 02/16/23 14:14: PT stated that patient is safe to return home. After a discussion w/ patient, MD and myself the decision is made to discharge home and proceed w/ Hospice services. I will update Erin henry/ [facility] and patient's sister (Mally). MD did update patient that he will be ready for discharge today. Original Note: I spoke w/ this patient today regarding Hospice Consult. MD entered Hospice Consult over the weekend and Hospice nurse spoke w/ patient. Patient stated that he would like to speak w/ his sister prior to making any decisions. I followed up w/ patient this AM and he stated that he is still undecided regarding discharge plans. PT/OT has been ordered for this patient today. Patient and I had a lengthy discussion of different discharge plans that patient could proceed w/ at time of discharge: LTC w/ Hospice vs home w/ Hospice vs SNF placement. Patient understood these options and was agreeable for me to contact his sister (Mally) regarding different discharge plans. Once PT/OT evaluates patient this afternoon I will follow up w/ patient. Patient could discharge later today or tomorrow.
--- NOTE | 2023-02-16 13:48 | HMH.PTEV ---
Physical Therapy Evaluation Rehab PT IP Evaluation Start: 02/16/23 10:52 Freq: ONCE Status: Active Protocol: Document 02/16/23 13:44 [email or web address] (Rec: 02/16/23 13:48 TORI [id number]) Subjective/History History History 62 yowm adm to [facility] with anemia . PMH of cirrhosis, CHF, CKD, Hep C. He reports he lives alone, no steps to enter the home, and he is independent with all mobility and ADLs at baseline. Subjective Subjective Pt received blood transfusion and H/H is improved. He has no c/o other than chronic LBP. New diagnosis of cancer in past 12 No months? Rehab PT IP Eval Objective Appearance Patient Behavior Appropriate Patient Orientation Person,Place,Time Difficulty following instructions none Speech Pattern Clear Ambulation Patient Able to Ambulate Yes Ambulation Observation IP General Gait Pattern Observation Wide Based Gait Ambulation Distance (feet) 30 Ambulation Assistive Device None Ambulation Ability Supervision/Stand by Balance Ability to Arise Able, uses arms to help Sitting Balance Steady, safe Standing Balance Steady, wide stance Dynamic Sitting Balance Ability Good Dynamic Standing Balance Ability Good Transfers Bed Transfer Ability Supervision/Stand by Chair Transfer Ability Supervision/Stand by Sit to Stand Bed Transfer Ability Supervision/Stand by Sit to Stand Chair Transfer Ability Supervision/Stand by Rehab PT IP prob,goals,plan Problems Date of Evaluation: 02/16/23 Discharge Plan PT Discharge Plan Pt is currently appropriate to return home once medically stable. for d/c. Recommend Home Health therapy as needed after return home. Eval Complexity Eval Charge Codes 85571 - High Complexity PHYSICIAN CERTIFICATION: I certify the specified therapy services for Eliseo Hernandez are required, authorized, and reviewed every 30 days.
[2023-02-16 15:38] VITALS: BP 131/66; PULSE 79; RESP 18; TEMP 37.2; O2SAT 98
--- NOTE | 2023-02-16 15:53 | HMH.OTEV ---
OT Inpatient Evaluation Rehab OT IP Evaluation Start: 02/16/23 10:52 Freq: ONCE Status: Active Protocol: Document 02/16/23 15:49 FLETCHER (Rec: 02/16/23 15:53 [id number] Rehab OT IP Assessment Subjective History Pt oriented x 4 on arrival and agreeable to engage in therapy evaluation. Pt is a 62 yowm adm to [facility] with anemia . PMH of cirrhosis, CHF, CKD, Hep C. He reports he lives alone. He claims to be independent with all ADLs, IADLs, and functional transfers prior to being in the hospital. He does have a friend that checks on him often. He does not use any type of AE during transfers. Subjective I want my pain pill. Pt reporting he needs a pain pill for back pain. However, nursing reports he has had one and cannot have another at this time. Objective Patient Orientation Person,Place,Birthday,Month Upper Extremity Gross ROM WFL Bed Mobility bed mobility-scooting,bed mobility - supine/sit,bed mobility - rolling Assist Level Supervision/Stand by Transfer Training Sit/Stand Transfer Assist Level Supervision/Stand by Lower Body Dressing Ability Standby Assistance Rehab OT IP prob,goals,plan Problems Date of Evaluation: 02/16/23 Rehab Potential Rehab Potential Innapropriate for Skilled Therapy Discharge Plan OT Discharge Plan Pt appears to be at his baseline with functioanl tranfers and ADL independence at this time. Pt can return home once medically stable per physician. Eval Complexity Eval Charge Codes 34233 - Low Complexity PHYSICIAN CERTIFICATION: I certify the specified therapy services for Eliseo Hrenandez are required, authorized, and reviewed every 30 days.
--- NOTE | 2023-02-16 16:59 | EXP.ACUTE.PN ---
Subjective *Date: 02/16/23 *Time: 18:30 Interval history: Patient on 2 to 3 L nasal cannula oxygen throughout the morning. Has had urine output but still fluid positive. Denies wearing oxygen before coming into the hospital. Afebrile. Appears alert and oriented on discussion but had multiple discussions today where story appears to change. Patient receptive to the idea of hospice but not until seeing him tomorrow at home. When case management came to see him to coordinate hospice seeing him he seems to change his story that he did not want hospice. States this is the first time he has been hearing about these problems with his liver and kidney being bad enough to need hospice. Continues to be resistant to transfer to higher level of care given his continued cirrhosis, edema, renal failure. Patient denies any nausea or vomiting or chest pain. Medical Exam Vital signs and Labs for Last 24 Hours: Vital Signs Temp Pulse Resp BP Pulse Ox O2 Del Method O2 Flow Rate 02/16/23 16:58 Room Air 02/16/23 15:00 Room Air 02/16/23 13:00 Nasal Cannula 3 02/16/23 11:00 Nasal Cannula 3 02/16/23 15:38 98.9 F 79 18 131/66 98 Nasal Cannula 02/16/23 11:12 98.9 F 81 18 128/61 97 Nasal Cannula 02/16/23 08:39 Nasal Cannula 3 02/16/23 08:36 Nasal Cannula 3 02/16/23 07:39 98.9 F 85 18 118/76 96 Nasal Cannula 3 02/16/23 07:00 Nasal Cannula 02/16/23 05:00 Nasal Cannula 02/16/23 03:57 98.8 F 99 H 24 151/92 H 93 L Nasal Cannula 3 02/16/23 03:00 Nasal Cannula 02/16/23 01:00 Nasal Cannula 02/15/23 23:55 97.4 F L 91 H 26 H 138/72 100 Nasal Cannula 3 02/15/23 23:00 Nasal Cannula 02/15/23 20:00 Nasal Cannula 02/15/23 21:00 Nasal Cannula 02/15/23 19:51 98.7 F 105 H 20 128/66 92 L Nasal Cannula 3 02/15/23 19:00 Nasal Cannula 02/15/23 17:00 Nasal Cannula Intake and Output 02/16/23 02/16/23 02/16/23 07:59 15:59 23:59 Intake Total 477 / 717 240 / 717 Output Total 0 / 0 0 / 0 Balance 477 / 717 240 / 717 Intake: Intake, Oral Amount 240 / 480 240 / 480 Intake, Total IV Amount 237 / 237 Octreotide Acetate 500 mcg In 0 237 / 237 .9 % Sodium Chloride 250 ml @ 50 MCG/HR 25.5 mls/hr IV .Q10H [facility] Rx#:[id number] Output: Output, Urine Amount 0 / 0 0 / 0 Other: Number of Unmeasured Voids 0 0 Weight 119.159 kg Patient Weight 02/16/23 23:59 Weight 119.159 kg Laboratory Results - last 24 hr 02/15/23 21:07: Hgb 7.3 L, Hct 25.7 L 02/16/23 06:50: WBC 8.2 D, RBC 3.02 L D, Hgb 7.5 L, Hct 26.1 L, MCV 86.5, MCH 24.9 L, MCHC 28.7 L, RDW 19.3 H, Plt Count 126 L, MPV 11.7 H, Neut % (Auto) 78.2, Lymph % (Auto) 13.5, [place] % (Auto) 7.1, Eos % (Auto) 1.0, Baso % (Auto) 0.2, Neut # (Auto) 6.4, Lymph # (Auto) 1.1, [place] # (Auto) 0.6, Eos # (Auto) 0.1, Baso # (Auto) 0.0, Sodium 143, Potassium 5.0, Chloride 110 H, Carbon Dioxide 21 L, Anion Gap 17.0 H, BUN 41 H, Creatinine 3.60 H D, Estimated Creat Clear 36, Estimated GFR 17 L*, Est GFR ( Amer) 21 L D, Glucose 137 H, Calcium 7.6 L, Ammonia 61 H I & O for Labs for Last 24 Hours: Intake & Output 02/13/23 02/14/23 02/15/23 02/16/23 23:59 23:59 23:59 23:59 Intake Total 0.14 / 0.14 1930 / 1930 717 / 717 Output Total 125 / 125 1850 / 1850 0 / 0 Balance -124.86 / -124.86 80 / 80 717 / 717 Weight 119.386 kg 119.386 kg 119.159 kg Constitutional: Present no acute distress, obese, chronically ill appearing and combative Head: Present atraumatic and normocephalic ENT: Present normal exam Neck: Present normal inspection Respiratory: Present crackles (in bases), diminished air movement and normal respiratory effort; Absent rhonchi or wheezes Cardiac: Present Reg Rate and Rhythm GI: Present soft, distention, tenderness (diffuse) and diminished bowel sounds Extremities: Present normal inspection, full ROM and edema (2+ to knees) Ski
--- NOTE | 2023-02-16 17:52 | PC.NURSE ---
Pt is alert and oriented x4. Wheezes noted to bilateral upper lobes. He's been weaned to RA with O2 sats measuring 93%. He's been aggressive and argumentative with staff at times. Treated x2 with prn pain meds with some relief noted on reassessment. He is currently resting in bed talking on the phone. bed is locked an in the lowest position, call light is within reach.
--- NOTE | 2023-02-16 18:38 | EXP.EVENT.NO ---
Advance care planning note: Active diagnosis: Alcoholic cirrhosis, CHF, CKD 4, anemia of chronic disease, The patient's active diagnoses are of sufficient risk that focused discussion on advanced care planning is indicated in order to allow the patient to thoughtfully consider personal goals of care; and, if situations arise that prevent the ability to personally give input, to ensure appropriate representation of their personal desires through documentation or informed surrogate decision makers. Discussion: Persons present and participating in discussion: Discussion: Extensive discussion with patient and social work about goals of care. Patient has expressed an interest in having hospice see him at home for possible intake. He has multiorgan failure with cirrhosis, chronic renal failure, and CHF. Has difficulty getting services from subspecialists and has consistent excuses as to his limited ability to comply with therapy and referrals. Patient appears to have poor insight into his disease processes which have progressed over the past several years. Patient is open to seeing what hospice can offer but is not ready to make decisions at this time regarding end-of-life care though he also expresses no desire for aggressive treatment and work-up of his worsening multiorgan failure. Time spent: Total time spent [id number] in education and discussion directly related to advance care plannin minutes
[2023-02-16 19:39] VITALS: BMI 39.8
[2023-02-16 20:00] VITALS: BP 114/68; PULSE 89; RESP 16; TEMP 36.6; O2SAT 77
[2023-02-17] VITALS: BP 112/61; PULSE 77; RESP 20; TEMP 36.9; O2SAT 93
--- NOTE | 2023-02-17 00:51 | PC.NURSE ---
Pt's oxygen saturation dropped to mid 70s on room air while sleeping. Supplemental oxygen reapplied via nasal cannula at 2L. Continuous pulse oxygen monitoring initiated.
[2023-02-17 04:00] VITALS: BP 128/66; PULSE 74; RESP 18; TEMP 36.8; O2SAT 99; BMI 41.3
[2023-02-17 07:07] LABS: Alanine Aminotransferase 16 U/L (12-78); Albumin Level 3.3 g/dl (3.5-5.0); Alkaline Phosphatase 106 U/L (38-126); Anion Gap 16.3 mEq/L (5-15); Aspartate Amino Transferase 22 U/L (17-59); Bilirubin,Total 1.1 mg/dl (0.2-1.3); Blood Urea Nitrogen 46 mg/dl (9-20); Calcium 7.6 mg/dl (8.4-10.2); Carbon Dioxide 23 mmol/L (22.0-30.0); Chloride 107 mmol/L (98-107); Creatinine Clearance Estimated 19 mL/min (50-200); Estimated Glomerular Filt Rate 16 ml/min (>60); GFR (African American) 19 ML/MIN (>60); Globulin 3.2 g/dL (1.3-3.2); Glucose 142 mg/dl (74-100); Magnesium 1.8 mg/dl (1.6-2.3); Potassium 4.3 mmoL/L (3.5-5.1); Sodium 142 mmol/L (136-145); Total Protein,Serum 6.5 g/dl (6.3-8.2)
[2023-02-17 07:57] VITALS: BP 141/64; PULSE 83; RESP 22; TEMP 36.5; O2SAT 90
[2023-02-17 08:28] LABS: Basophils % 0.4 % (0.1-2.0); Eosinophils # 0.1 K/mm3 (0.0-0.4); Eosinophils % 1.8 % (0.1-12.0); Hematocrit 26.3 % (42.0-52.0); Hemoglobin 7.3 g/dL (14.1-18.0); Lymphocytes # 1.1 K/mm3 (0.7-4.5); Lymphocytes % 15.8 % (10-50); Mean Corpuscular HGB Conc 27.8 g/dL (31.8-35.4); Mean Corpuscular Hemoglobin 24.4 pg (27.0-31.2); Mean Corpuscular Volume 87.8 fl (80-94); Mean Platelet Volume 12.1 fl (7.4-10.4); Monocytes # 0.4 K/mm3 (0.1-1.0); Monocytes % 5.7 % (1.7-9.3); Neutrophils # 5.4 K/mm3 (1.8-7.8); Neutrophils % 76.3 % (37.0-80.0); Platelet Count 116 K/mm3 (142-424); Red Cell Distribution Width 20.3 % (11.5-17.5); White Blood Count 7.1 K/mm3 (4.8-10.8)
--- NOTE | 2023-02-17 09:17 | PC.NURSE ---
Patient requested to make his own follow up with [facility] and [facility] - patient was given phone numbers and address for both office.
--- NOTE | 2023-02-17 23:18 | EXP.DC.SUM ---
General Admission date:: 02/14/23 Discharge date: 02/17/23 HPI HPI HPI: 62 year old male patient presents for evaluation of generalized weakness, fatigue, bilateral lower extremity edema. PMHX of cirrhosis, CHF, CKD, and tobacco abuse. Patient has history of hepatitis C, IV drug use per chart review. Denies any recent drug use. Patient of note has had symptoms in the past that are of similar etiology that he attributes to anemia of indeterminate etiology. Does report positive family history of anemia. Denies any hematemesis, nausea, vomiting, overt abdominal pain, or black or tarry stools. No previous therapies. Has been compliant with home medications including carvedilol, lactulose, omeprazole. No known sick contacts, no syncope or presyncope. No recent travel. No chest pain. His ED workup concluded a hemoglobin 4.5, MCV 80.7, platelet count 120, INR 1.11, creatinine 2.90 consistent with baseline, BUN 34, iron 20 mcg/dL, ferritin 5.32, BNP 6400, fecal occult blood test negative. He received transfusion of 2 units packed red blood cells, ceftriaxone 1 g, octreotide, morphine 4 mg IV x1, Zofran 4 mg IV x1. His CT of his abd reveals cirrhosis without any acute findings. After two units of blood his hgb increased to 5.8. He was accepted at the [facility] by Dr. Chow ( gastroenterology) and Dr. Harrison (hospitalist.) He has spent 12 hours in the ED refusing to be transferred. is aware and pt will remain on the waitlist. In the 12 hours of waiting in the ED the patient has not had any upper or lower GI bleeding. Due to still requiring blood transfusions, the ED physician consulted the hospitalist team requesting admission for further medical management. The patient was admitted to the medical floor. He appears pale but is hemodynamically stable without noticeable hemorrhaging. I asked the patient what his goals of care are. The patient states he wants to receive blood and then follow up with GI on an outpatient basis. He states he does not have the social support to be admitted into another hospital outside of [facility]. I explained to him that we do not have the resources needed if he starts having a upper or lower GI bleed. I explained to him that the plan was to transfuse blood and still transfer him to the [facility] since GI is not in this hospital. The pt states he understands and would like to continue to receive the blood transfusions. Hospital Course Hospital Course Hospital Course: 62 year old male patient presents for evaluation of generalized weakness, fatigue, bilateral lower extremity edema. Denies any hematemesis, nausea, vomiting, overt abdominal pain, no recent black or tarry stools but intermittent melena reported. No recent travel. No chest pain. His ED workup concluded a hemoglobin 4.5, MCV 80.7, platelet count 120, INR 1.11, creatinine 2.90 consistent with baseline, BUN 34, iron 20 mcg/dL, ferritin 5.32, BNP 6400, fecal occult blood test negative. He received transfusion of 2 units packed red blood cells, ceftriaxone 1 g, octreotide, morphine 4 mg IV x1, Zofran 4 mg IV x1. After two units of blood his hgb increased to 5.8. 2 more units are planned. He was accepted at the [facility], but declined has spent 12 hours in the ED refusing to be transferred. is aware and pt will remain on the waitlist. Patient is bonded to transfusions. Hemoglobin with no decrease over the past 24 hours. Is requiring 3 L nasal cannula oxygen which is new since admission. Significant edema on exam. Multiple discussions during admission about best approach to his treatment. Continues to not have interest in transfer for nephrology or GI. Discussed hospice during his admission given his progressive multiorgan failure including renal failure, decompensated cirrhosis, heart failure with new oxygen requirement. Patient open to this plan. Would like to be discharged home with hospice to meet hi
[2023-02-19 06:13] LABS: Cystatin C 3.33 mg/L (0.72-1.16)
== END 2023-02-17 12:28 | disposition hospice, home (50) | DRG 683 ==
LOC: ER 22:10 → 2ND 22:33
PROVIDERS: Emergency Medicine; Internal Medicine Adolescent Medicine; Admitting Provider Family Medicine; Emergency Provider Emergency Medicine; Visit Provider Family Medicine
DX: N18.4 Chronic kidney disease, stage 4 (severe) (principal); K76.6 Portal hypertension; K92.1 Melena; R18.8 Other ascites; K70.30 Alcoholic cirrhosis of liver without ascites; I50.9 Heart failure, unspecified; Z91.199 Patient's noncompliance with other medical treatment and regimen due to unspecified reason; F17.210 Nicotine dependence, cigarettes, uncomplicated; D63.1 Anemia in chronic kidney disease; B18.2 Chronic viral hepatitis C; D69.6 Thrombocytopenia, unspecified; Z71.6 Tobacco abuse counseling
CPT/HCPCS: 36415; 71045; 74176; 80048; 80053; 80329; 81001; 82140; 82272; 82610; 82728; 83540; 83550; 83690; 83735; 83880; 84100; 85014; 85018; 85025; 85610; 86850; 93005; 93306; 97163; 97165; 99291; G0328; J0696; J2354; J2405; P9016